=== PATIENT | male | born 1940 | race Caucasian/White ===

== ENCOUNTER 2017-04-05 09:52 | Inpatient (IN) ==
--- NOTE | 2017-04-04 17:57 | Anesthesia Evaluation PreOp ---
<RonyAnnalise Cespedes - Last Filed: 04/05/17 11:08> Date of Encounter: 04/05/17 Time of Encounter: 10:25 - Past History Cardiac History: HTN (maintained on Carvedilol), Hyperlipidemia (maintained on Atorvastatin), Arrhythmia (Eliquis maintenance for anticoagulation), Cardiac Stent (Cardiac stents x 4 - last placed 2007), Pacemaker/ICD (pacer dependent for SSS. Pacer leads placed 07/08/2013. AICD placement 05/02/2016), Other (CAD. ECHO 12/10/2015 - LVH, mildly reduced w/LVEF = 48%, hypokinetic posterior segments. Stable unchanged mildly dilated Aortic root 4.1cm. NUCLEAR STRESS 01/12/2016 - NO evidence of ischemia or prior myocardial injury) Pulmonary History: ANA Dx (Non-compliant w/CPAP use. 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 Chronic BAck pain s/p steroid injections and other interventions) Other Medical History: GERD (maintained on Omeoprazole) Anesthesia History: Past Anesthesia (Inguinal hernia repair 1996, Prostate surgery 07/2008, EP cardiac ablation 09/2007, L-hand exploratory surgery 2003, Removal/replacement of infected ICD 06/2013) Medications and Allergies Atorvastatin [Lipitor] 40 mg PO DAILY 04/01/15 [History] Multivitamin [Flintstones] 1 each PO DAILY 04/01/15 [History] Tamsulosin [Flomax] 0.4 mg PO DAILY 04/01/15 [History] Nitroglycerin [Nitrostat] 0.4 mg SL Q5M PRN 09/16/15 [History] Carvedilol 12.5 mg PO BID 07/08/16 [History] ALPRAZolam [Xanax 0.5 MG Tablet] 0.5 mg PO BID PRN 04/05/17 [History] Apixaban [Eliquis] 5 mg PO BID 04/05/17 [History] Escitalopram [Lexapro] 10 mg PO DAILY 04/05/17 [History] 3 Allergy/AdvReac Type Severity Reaction Status Date / Time celecoxib [From Celebrex] AdvReac Rash Verified 04/05/17 10:23 - Meds/Allergy Pre-op Review Beta Blockers on Current Med List: Yes (Carvedilol) If Beta Blockers taken, Date/Time (Last Dose taken): 04/05/2017 @ 0600 Anesthesia Results - Labs Laboratory Tests 02/02/17 03/03/17 03/30/17 09:43 07:33 10:00 WBC 12.1 H Hgb 14.6 Hct 45.4 Plt Count 222 Sodium Potassium Chloride Carbon Dioxide BUN Creatinine Est GFR ( Amer) Glucose 95 Est Mean Plasma Glucose 105 Hemoglobin A1c 5.3 03/30/17 10:00 WBC Hgb Hct Plt Count Sodium 138 Potassium 4.4 Chloride 98 Carbon Dioxide 36 H BUN 26 Creatinine 0.86 Est GFR ( Amer) > 60 Glucose Est Mean Plasma Glucose Hemoglobin A1c - Imaging EKG: report reviewed Anesthesia Exam O2 Sat Height 1.74 m Height 1.74 m Weight 76.657 kg Weight 76.657 kg O2 Sat by Pulse Oximetry 92 Vital Signs Temp Pulse Resp BP Pulse Ox 98.1 F 70 18 130/89 92 04/05/17 10:40 04/05/17 10:40 04/05/17 10:40 04/05/17 10:40 04/05/17 10:40 Height: 5'8" Weight: 169# BMI = 25 NPO (# of Hours): MNoc - HEENT Pupil (Motor): Pupils equal, EOMI Mallampati: III Teeth: Edentulous Oral Opening: Greater than 3 - MIGRATION SPECIALIST LOC: Oriented MIGRATION SPECIALIST Motor: Normal RUE, Normal LUE, Normal RLE, Normal LLE, Normal Face MIGRATION SPECIALIST Sensory: Normal: RUE, LUE, RLE, LLE, Face - Cardiac Rhythm: Regular Murmur: None - Pulmonary Breath Sounds: bilateral Clear Respiratory Effort: Symmetrical Anesthesia Assess/Plan ASA Score: 3 (Sick Sinus s/p AICD/Pacer, HTN, Chol, CVA) Modified [place] Scale for Level of Consciousness: Cooperative, oriented, and tranquil Anesthetic Plan: General Monitoring Plan: Standard Monitors Recovery Plan: PACU Anes Supervising Prov Stmt: Pt seen/evaluated, R&B discussed, questions answered and consent obtained. 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
[2017-04-05] MEDS ORDERED: Lidocaine -MPF 1% 2 ML VIAL ID ONE (10:12)
[2017-04-05] MEDS ORDERED: cefOXitin 2,000 MG in Water for inj. (sterile) 10 ML IVP ONE (10:12)
[2017-04-05] MEDS ORDERED: Plasma-Lyte A (PH 7.4) 1,000 ML IVC SCH (10:15)
[2017-04-05] MEDS ORDERED: Ringers Solution, Lactated 1,000 ML IVC SCH (10:15)
--- NOTE | 2017-04-05 10:59 | History & Physical Report ---
Date of Encounter: 04/05/17 Time of Encounter: 10:59 24 Hour HP Update - Instructions Instructions: If the History and Physical is less than 30 days old and was completed prior to A.M. admission and or procedure and has NOT been updated on calendar day of procedure please complete this update prior to performing procedure. - Update Patient reports changes in Medical Condition: No Changes in examination, assessment, or condition: No Changes in Medication: No Preop tests/diagnostics Reviewed: Yes Surgery Remains Indicated: Yes Consent for Planned Operative Procedure(s) Verified: Yes - Pre-Operative Checklist Preoperative Checklist Indicated: Yes Prophylactic Antibiotic Ordered: Yes Home Medications Include Beta Kenn: No
[2017-04-05] MEDS ORDERED: Famotidine 20 MG/2 ML VIAL IVP ONE (11:14)
[2017-04-05] MEDS ORDERED: Metoclopramide 10 MG/2 ML VIAL IVP ONE (11:14)
[2017-04-05] MEDS ORDERED: Acetaminophen IV 1,000 MG/100 ML INFUS..BTL IVPB ONE (11:15)
[2017-04-05] MEDS ORDERED: Gabapentin 300 MG CAPSULE PO ONE (11:45)
[2017-04-05] MEDS ORDERED: *HR* Rocuronium Bromide 50 MG/5 ML VIAL ONE (12:51)
[2017-04-05] MEDS ORDERED: Dexamethasone 4 MG/ML VIAL ONE (12:51)
[2017-04-05] MEDS ORDERED: *HR* Midazolam HCl 2 MG/2 ML VIAL ONE (12:51)
[2017-04-05] MEDS ORDERED: *HR* Propofol 200 MG/20 ML VIAL IVP ONE (12:51)
[2017-04-05] MEDS ORDERED: *HR* FentaNYL (PF) 100 MCG/2 ML VIAL ONE (12:51)
[2017-04-05] MEDS ORDERED: *HR* Succinylcholine 200 MG/10 ML VIAL IVP ONE (12:51)
[2017-04-05] MEDS ORDERED: Lidocaine -MPF 2% 2 ML VIAL ONE (12:51)
[2017-04-05] MEDS ORDERED: Ondansetron 4 MG/2 ML VIAL ONE (12:51)
[2017-04-05] MEDS ORDERED: EPHEDrine 50 MG/ML VIAL ONE (13:29)
[2017-04-05] MEDS ORDERED: Heparin 1,000 UNITS/500 mL NS 500 ML ONE (13:35)
[2017-04-05] MEDS ORDERED: *HR* EPINEPHrine 1 MG/ML AMPUL ONE (14:25)
[2017-04-05] MEDS ORDERED: *HR* EPINEPHrine 1 MG/10 ML SYRINGE ONE (14:26)
--- NOTE | 2017-04-05 15:13 | Anesthesia Progress Note ---
Date of Encounter: 04/05/17 Time of Encounter: 14:15 Anesthesia Note - Note Note: 04/05/17 15:03 Patient presents to OR for rehan alaniz. Patient was given Fentanyl and 80mg Propofol for induction by Keshav Garay CRNA. Intubated. Patient becomes very hypotensive (SBPs in 30's). Fails to respond to Ephedrine or Phenylephrine. I was paged to room. Patient is very pale and somewhat cyantoic in appearance. Unable to get O2 sat reading. No peripheral pulses but has a carotid and femoral pulse but weak. +BBS. Maintains electrical activity on EKG. Ordered epinephrine be given and 1cc on standard solution given. BP is slow to respond but does increase. BP eventually back to the 150's but gradually falls back to the 70's. At this point I place a femoral a-line, additional epi given and BPs increase again. Patient is still not responsive, given 0.4mg Narcan and slowly awakens. Able to extubate. Patient taken to ICU for evaluation by cardiology and to be monitored overnight. He did not appear to have any neurologic complications. Still concerned about damage to heart and kidneys due to long period (approx 15 min) of hypotension). Daughter was advised of the situation by Dr Goodman, Dr Uribe and myself.
--- NOTE | 2017-04-05 15:16 | Anesthesia Procedures ---
Date of Encounter: 04/05/17 Time of Encounter: 14:15 Procedures: Anesthesia - Arterial Line Time out performed: Yes Length (inches): 5 Technique Used: sterile prep, guide wire technique, direct puncture technique Post-Procedure: line sutured into place, dry sterile dressing placed Patient tolerated procedure: well, no complications Site: Femoral L Comments: Patient is intubated and in critical condition. A-line needed to monitor extreme hypotension and poor response to pressors. Patient may need pressor drip and will need a-line to be given these meds safely.
--- NOTE | 2017-04-05 16:04 | Event Note ---
Date of Encounter: 04/05/17 Time of Encounter: 16:04 This procedure was canceled due to the patient's hypotension after anesthesia induction. Patient is been transferred to the ICU for cardiac evaluation.
--- NOTE | 2017-04-05 17:11 | Cardiology Consult Note ---
Date of Encounter: 04/05/17 Time of Encounter: 17:02 Assessment and Plan (1) CAD in [place] artery Current Visit: Yes Status: Acute Date of CAD, PCI in 2007. Stress test in 2016 was negative for ischemia. Continue aspirin and statin therapy. Beta zuleyka on hold given hypotensive event today. (2) Stented coronary artery Current Visit: Yes Status: Acute (3) Cardiomyopathy Current Visit: Yes Status: Acute Per reports, previous cardiomyopathy. Most recent stress test from 2016 suggest a gated EF of 56%, TTE reports an EF of 48%. Hypotensive event today. Hold patient's home beta zuleyka for now. Qualifiers: Cardiomyopathy type: unspecified Qualified Code(s): I42.9 - Cardiomyopathy , unspecified (4) ICD (implantable cardioverter-defibrillator) in place Current Visit: Yes Status: Acute Records suggests a GRINDING WHEEL DRESSER device. We'll obtain records from [facility] and interrogate device. (5) Hypotensive episode Current Visit: Yes Status: Acute Mr. Mariscal is a 77-year-old who was admitted today for an elective cholecystectomy. After induction with propofol, patient suddenly became hypotensive per reports. Blood pressure improved with administration of vasopressors. Consultation requested regarding further cardiovascular management. Available records from [facility] were reviewed. From what I can gather, patient has a history of CAD, prior PCI in 2007, and a cardiomyopathy s/p ICD. Per reports from family , previous ICD was extracted from the left side and a new device was placed on the right sided. Prior reports suggests patient has a GRINDING WHEEL DRESSER device. A stress test performed in 2016 was negative for ischemia. A TTE in 2016 describes mildly reduced LV function with an EF of 48%. Patient's functional capacity is diminished due to chronic back pain. Recommendations: Check echocardiogram to evaluate current LV function. Interrogate device. Your ICU management regarding other effects from today's hypotensive event. Obtain all records from [facility]. Given the events of today, I would consider this patient at elevated risk of adverse cardiovascular events with anesthesia if this procedure is to be reattempted. Discussion w patient/family: The assessment and plan as outlined above was discussed with the patient and/or family members who expressed understanding and agreement. All questions were answered. Thank you for involving us in the care of your patient. Please call with any questions. History of Present Illness Consult date: 11/01/17 Requesting physician: Catracho Molina Consult reason: Perioperative Evaluation Chief complaint: Abdominal pain History of present illness: Mr. Mariscal is a 77 year old male who presented to the hospital for an elective cholecystectomy. Diagnosis: Biliary dyskinesia. Today, patient was induced with propofol when he suddenly developed significant hypotension. Per reports, he maintained a heart rate, but blood pressure was significantly decreased for around 10 minutes. Patient given vasoactive agents, including Klaus-Synephrine and epinephrine. Blood pressure ultimately normalized. Upon my evaluation, he is resting in the ICU. Blood pressure appears to be stable. Case discussed with family at the bedside. Patient's primary hide dyer is at [facility]. Previous records available in [facility] were reviewed: Per reports, history of CAD, prior PCI 2007, cardiomyopathy, previous ICD placement. Nuclear stress test 01/12/2016: Gated EF 56%. Negative for ischemia. Fixed inferolateral defect consistent with artifact. TTE 01/2016: Left ventricular hypertrophy with normal chamber size. Mildly reduced EF of 48%. Hypokinesis of the posterior segment suggesting prior infarction. Normal RV size, mild systolic dysfunction. Mildly dilated aortic root measuring 4.1 cm. Mildly dilated ascending aorta measuring 4.13 cm. Measurements unchanged from previous studies. No significant valvular disease. SCOTT 07/2013: EF 40-45%. Normal LV, RV size. Normal RV function. Mildly dilated ascending aorta. No obvious fibrillar vegetation seen. Linear echodensity noted in the RA and RV, which likely represents a cast from recently removed device. Linear echodensity visualized in the coronary sinus, likely represents a cast from recent device removal. Mild mitral regurgitation. Atheromatous disease of the descending and transverse aorta. Past Med Surg Social Fam HX - Past Medical History Medical history: arthritis, atrial fibrillation, cancer, CHF, coronary artery disease, CVA, hyperlipidemia, hypertension, myocardial infarction, other Psychiatric history: no psych history - Past Surgical History Surgical History: pacemaker/AICD - Social History Smoking Status: Never smoker Smokeless Tobacco Status: No Alcohol use: none Drug use: none Medications and Allergies Atorvastatin [Lipitor] 40 mg PO DAILY 04/01/15 [History] Multivitamin [Flintstones] 1 each PO DAILY 04/01/15 [History] Tamsulosin [Flomax] 0.4 mg PO DAILY 04/01/15 [History] Nitroglycerin [Nitrostat] 0.4 mg SL Q5M PRN 09/16/15 [History] Carvedilol 12.5 mg PO BID 07/08/16 [History] ALPRAZolam [Xanax 0.5 MG Tablet] 0.5 mg PO BID PRN 04/05/17 [History] Apixaban [Eliquis] 5 mg PO BID 04/05/17 [History] Escitalopram [Lexapro] 10 mg PO DAILY 04/05/17 [History] 3 Allergy/AdvReac Type Severity Reaction Status Date / Time celecoxib [From Celebrex] AdvReac Rash Verified 04/05/17 10:23 ROS unobtainable: other (Patient currently resting from the events of today. He was not disturbed.) All Systems Review: A 10-system review of systems was performed and is negative for pertinent findings except as documented above in the HPI. Physical Examination Vital Signs, Last 4 Hours Temp Pulse Resp BP Pulse Ox 04/05/17 16:35 70 16 134/71 99 04/05/17 15:45 70 16 141/72 99 04/05/17 15:02 72 04/05/17 14:45 98 F 71 15 161/79 100 04/05/17 14:42 98.1 F 70 24 150/87 98 04/05/17 14:32 71 22 139/93 100 04/05/17 14:22 69 24 148/90 98 04/05/17 14:12 98 F 69 24 174/64 100 General: No Apparent Distress HEENT: Atraumatic, Normocephaly, Mucus Membranes Moist Neck: No JVD, Normal carotid pulses Cardiac: Reg Rate and Rhythm, Normal S1 and S2, No Murmur Lungs: Normal Breath Sounds Neuro: Other (Currently sleeping.) Abdomen: Soft Skin: No rashes noted on visualized skin Musculoskeletal: No Chest Wall Tenderness Extremities: No Clubbing, No Cyanosis, No Edema Consult Discharge Plan - Plan Referrals: Ellen Vora DO [Primary Care Provider] -
[2017-04-05] MEDS: 0.9 % Sodium Chloride 1,000 ML IVC SCH (17:16)
[2017-04-05 19:09] LABS: Basophils % 0.1 %; Eosinophils # 0.1 K/mcL (0.0-0.6); Eosinophils % 1.7 %; Hematocrit 43.5 % (37.5-50.1); Hemoglobin 13.6 g/dL (12.9-16.9); Immature Granulocytes % 0.3 % (0-4); Lymphocytes # 0.8 K/mcL (0.6-4.6); Lymphocytes % 11.1 %; Mean Corpuscular HGB Conc 31.3 g/dL (31.6-35.5); Mean Corpuscular Hemoglobin 28.6 pg (28.0-33.3); Mean Corpuscular Volume 91.6 fL (83.0-100.0); Mean Platelet Volume 9.1 fL (9.4-12.4); Monocytes # 0.6 K/mcL (0.0-1.3); Neutrophils # 5.9 K/mcL (1.6-8.9); Platelet Count 145 K/mcL (140-400); Red Blood Count 4.75 M/mcL (4.19-5.50); Red Cell Distribution Width 14.1 % (11.5-14.5); Segmented Neutrophils % 78.8 %
[2017-04-05 19:28] LABS: BUN/Creatinine Ratio 21 (6-26); Blood Urea Nitrogen 14 mg/dL (8-26); Calcium 9.9 mg/dL (8.6-10.8); Carbon Dioxide 31 mEq/L (19-29); Chloride 101 mEq/L (98-109); Glucose 98 mg/dL (70-99); Osmolality,Calculated 288 (280-300); Potassium 4.5 mEq/L (3.5-4.5); Sodium 139 mEq/L (136-145); eGFR For African Americans > 60 (> 60); eGFR For Non-African Americans > 60 (> 60)
[2017-04-06] MEDS: Pantoprazole 40 MG VIAL IVP SCH (09:53)
[2017-04-06] MEDS ORDERED: Ipratropium/Albuterol Neb 3 ML ONE ×2 (11:26→12:43)
[2017-04-06] MEDS ORDERED: Ipratropium/Albuterol Neb 3 ML IH SCH (11:30)
--- NOTE | 2017-04-06 11:32 | General Surgery Progress Note ---
Date of Encounter: 04/06/17 Time of Encounter: 11:00 - Assessment and Plan (1) Biliary dyskinesia Current Visit: Yes Status: Chronic Advance to full liquids Supportive care Hold surgical intervention at this time due to hypotensive episode and acute onset shortness of breath (2) Shortness of breath Current Visit: Yes Status: Acute stat COMMAND AND CONTROL SPECIALIST Duonebs every 6 hours KELVIN IS every 1 hour while awake Consider pulmonary consult (3) Cardiomyopathy Current Visit: Yes Status: Chronic Echo shows current EF of 60-65% Cardiology following for recommendations Qualifiers: Cardiomyopathy type: unspecified Qualified Code(s): I42.9 - Cardiomyopathy , unspecified (4) CAD in [place] artery Current Visit: Yes Status: Acute (5) ICD (implantable cardioverter-defibrillator) in place Current Visit: Yes Status: Chronic Interrogation ordered per cardiology (6) Hypotensive episode Current Visit: Yes Status: Acute Hold beta zuleyka at this time Echo complete Cardiology consulted for recommendations Subjective Patient reports: tolerating liquids well, voiding w/o difficulty, shortness of breath (new onset this morning), afebrile Objective Vital Signs - Last 8 Hours Temp Pulse Resp BP Pulse Ox 04/06/17 11:15 97.8 F 04/06/17 07:33 72 18 124/66 94 04/06/17 07:00 97.7 F 04/06/17 06:14 76 16 139/62 93 04/06/17 05:00 72 16 120/52 95 04/06/17 04:44 98.0 F 04/06/17 04:02 73 20 141/57 95 Intake and Output 04/05/17 04/06/17 04/06/17 23:59 07:59 15:59 Intake Total 300 / 300 Output Total 500 / 500 300 / 300 Balance -200 / -200 -300 / -300 Intake: IV Fluids 300 / 300 Lactated Ringers 1,000 ML @ 25 300 / 300 mls/hr IVC .Q24H KELVIN Rx#: [id number] Output: Urine 500 / 500 300 / 300 Other: Weight 79.6 kg Patient Weight 04/06/17 23:59 Weight 79.6 kg - General physical appearance well developed, well nourished, moderate distress, no pain - Eyes normal ocular movement - ENT normal mucosa, atraumatic, normocephalic - Neck Neck exam: trachea midline - Respiratory clear to auscultation, other (Patient has conversational dyspnea, states that he can't stop coughing; diminished breath sounds bilateral) - Cardiovascular Cardiovascular exam: Present: RRR - Abdomen Abdomen: Present: bowel sounds present, soft, non tender - Neurologic CN 2-12 grossly intact - Psychiatric oriented to time, oriented to person, oriented to place, speech is normal, memory intact - Labs 04/05/17 18:57 04/05/17 18:57 Diabetes panel 04/05/17 Range/Units 18:57 Sodium 139 (136-145) mEq/L Potassium 4.5 (3.5-4.5) mEq/L Chloride 101 (98-109) mEq/L Carbon Dioxide 31 H (19-29) mEq/L BUN 14 (8-26) mg/dL Creatinine 0.66 L (0.72-1.25) mg/dL Glucose 98 (70-99) mg/dL Calcium 9.9 (8.6-10.8) mg/dL Calcium panel 04/05/17 Range/Units 18:57 Calcium 9.9 (8.6-10.8) mg/dL Pituitary panel 04/05/17 Range/Units 18:57 Sodium 139 (136-145) mEq/L Potassium 4.5 (3.5-4.5) mEq/L Chloride 101 (98-109) mEq/L Carbon Dioxide 31 H (19-29) mEq/L BUN 14 (8-26) mg/dL Creatinine 0.66 L (0.72-1.25) mg/dL Glucose 98 (70-99) mg/dL Calcium 9.9 (8.6-10.8) mg/dL Adrenal panel 04/05/17 Range/Units 18:57 Sodium 139 (136-145) mEq/L Potassium 4.5 (3.5-4.5) mEq/L Chloride 101 (98-109) mEq/L Carbon Dioxide 31 H (19-29) mEq/L BUN 14 (8-26) mg/dL Creatinine 0.66 L (0.72-1.25) mg/dL Glucose 98 (70-99) mg/dL Calcium 9.9 (8.6-10.8) mg/dL - VTE Documentation of Mechanical Device: Intermittent pneumatic compression device Consult Discharge Plan - Plan Referrals: Ellen Vora DO [Primary Care Provider] -
--- NOTE | 2017-04-06 11:52 | Cardiology Progress Note ---
Date of Encounter: 04/06/17 Time of Encounter: 11:50 Assessment and Plan (1) CAD in [place] artery Current Visit: Yes Status: Acute [place] CAD, PCI in 2007. Stress test in 2016 was negative for ischemia. Continue aspirin and statin therapy. Beta zuleyka on hold given hypotensive event today. (2) Stented coronary artery Current Visit: Yes Status: Acute (3) Cardiomyopathy Current Visit: Yes Status: Chronic Per reports, previous cardiomyopathy. Most recent stress test from 2016 suggest a gated EF of 56%, TTE reports an EF of 48%. TTE demonstrates normal LV function. I personally reviewed images and believe there is very mild basal inferior/inferolateral hypokinesis, but overall LV function is clearly normal. No significant valve disease noted. 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 Device interrogation normal. (5) Hypotensive episode Current Visit: Yes Status: Acute At this point, it is unclear why this patient had a hypotensive event during induction with anesthesia. His LV function is normal. His blood pressure remained stable. Most recent cardiac testing demonstrates acceptable findings. Recommend resuming beta zuleyka for its perioperative protective cardiac effect. No further inpatient cardiology testing appears to be necessary. Case was discussed with anesthesia. (6) PAF (paroxysmal atrial fibrillation) Current Visit: Yes Status: Acute Patient with a history of paroxysmal atrial fibrillation. Eliquis held for surgery. Recommend Lovenox twice a day until surgical decision has been made. Resume Eliquis when able. Discussion w patient/family: The assessment and plan as outlined above was discussed with the patient and/or family members who expressed understanding and agreement. All questions were answered. Thank you for involving us in the care of your patient. Please call with any questions. Subjective Principal diagnosis: Hypotensive event Interval history: Overall, Mr. Mariscal did well overnight. Despite hypotensive event, no significant abnormal labs. Records obtained from patient's ribbon tier also reviewed. Per reports, remote history of CAD and prior PCI, cardiomyopathy which improved with HEATING PLANT SUPERINTENDENT therapy. Stress test performed last year negative for ischemia. Apparently, LHC performed June 2016 demonstrated minimal CAD. Patient's primary complaint this morning is of mild shortness of breath. Objective Vital Signs, Last 4 Hours Temp Pulse Resp BP Pulse Ox 04/06/17 11:15 97.8 F 04/06/17 09:10 72 22 124/66 93 04/06/17 08:05 72 20 129/68 92 General: Conversant, No Apparent Distress HEENT: Atraumatic, Normocephaly, Mucus Membranes Moist Neck: No JVD, Normal carotid pulses Cardiac: Reg Rate and Rhythm, Normal S1 and S2, No Murmur Lungs: Normal Breath Sounds, No Wheeze, Rales, Rhonchi, Other (Shallow. Increased kyphosis noted, which seems to be restricting patient's breathing.) Neuro: Alert and responsive, No focal deficits noted Abdomen: Soft, Non-Tender Skin: No rashes noted on visualized skin Musculoskeletal: No Chest Wall Tenderness Extremities: No Clubbing, No Cyanosis, No Edema Results 04/05/17 18:57 04/05/17 18:57 Lab Results 04/05/17 04/05/17 04/05/17 18:57 18:57 18:57 WBC 7.5 Hgb 13.6 Hct 43.5 Plt Count 145 Sodium 139 Potassium 4.5 Chloride 101 Carbon Dioxide 31 H BUN 14 Creatinine 0.66 L Glucose 98 Calcium 9.9 Troponin I 0.03 04/06/17 04/06/17 00:25 06:08 WBC Hgb Hct Plt Count Sodium Potassium Chloride Carbon Dioxide BUN Creatinine Glucose Calcium Troponin I 0.03 0.05 H* - Imaging and Cardiology Stress Test: report reviewed Echo: report reviewed Cardiac cath: other (Comment made regarding catheterization performed earlier this year in patient's records from primary ribbon tier - minimal CAD reported. ) - EKG Interpretation EKG results cardiology: personally reviewed, other (Paced rhythm.) - VTE Documentation of Mechanical Device: Intermittent pneumatic compression device Consult Discharge Plan - Plan Referrals: Ellen Vora DO [Primary Care Provider] -
[2017-04-06] MEDS ORDERED: *HR* Enoxaparin 80 MG/0.8 ML SYRINGE SQ SCH (12:00)
[2017-04-06] MEDS ORDERED: Ipratropium/Albuterol Neb 3 ML IH ONE (12:39)
--- NOTE | 2017-04-06 12:44 | Pulmonology Consult Note ---
Date of Encounter: 04/06/17 Time of Encounter: 12:44 Assessment and Plan (1) Acute and chronic respiratory failure with hypoxia Current Visit: Yes Status: Acute This is a 77-year-old gentleman with a past medical history of coronary artery disease and ischemic cardiomyopathy who presented for elective cholecystectomy was complicated by hypotension. Today while being managed in the ICU became acutely hypoxemic and despite high flow nasal cannula oxygen Oxymask and nonrebreather patient was able to maintain sats Eanes saturation greater than 88 % he was trialed on noninvasive positive airway pressure however he became nauseous on this and could not tolerate it given tenuous respiratory status and failure of conservative measures patient required intubation. Leading differential diagnosis at this time include development of pneumonia complicated by significant ventilation perfusion mismatch from left-sided lower lobar collapse with possibility of progression to ARDS versus acute pulmonary embolus. Less likely but clearly in the differential would be cardiogenic pulmonary edema also chest x-ray was not suggestive of significant volume overload. Plan at this time is to start empiric anticoagulation with heparin infusion. Ventilator is been adjusted with some improvement in hypoxemia repeat arterial blood gas is pending Patient for CTA of the chest (pulmonary embolus protocol) Start empiric antimicrobials for possibility of pneumonia although he is still going to be considered at risk for community associated organisms with possible aspiration. I will further adjust the vent after CTA has been performed with increase in PEEP for possible lung recruitment and possible bronchoscopy if oriented based upon repeat imaging. Chest x-ray after intubation is pending at this time which it will also be helpful. We will start empirically with our \RDSnet low tidal volume ventilatory strategy CBC CMP and PT/INR lactate and troponin have been ordered (2) CAD in [place] artery Current Visit: Yes Status: Acute Mild troponin elevation without evidence of ST elevation on ECG patient has been evaluated by cardiology repeat echo is reassuring for near-normal ejection fraction without any RV failure. Beta zuleyka was held because of hypotension we can likely restart that after pulmonary embolus has been excluded and full anticoagulation is going to be administered at this time not for ACS but for possibility of pulmonary embolus. I suspect that the elevation in his troponin is related to supply demand mismatch We can also continue the patient's home aspirin. (3) Hypotensive episode Current Visit: Yes Status: Acute This is resolved likely related to induction medications used for anesthesia possibly propofol patient is actually hypertensive at this time and we have started treatment with hydralazine once NG tube has been placed we will give the patient antihypertensives from the enteral route (4) PAF (paroxysmal atrial fibrillation) Current Visit: Yes Status: Acute Remains rate controlled today starting notable blocking agent when safe to do so anticoagulation as outlined previously again we appreciate cardiology following closely with this patient (5) Biliary dyskinesia Current Visit: Yes Status: Chronic Plan for cholecystectomy is on hold currently because of critical illness and severe hypoxemic respiratory failure (6) Cardiomyopathy Current Visit: Yes Status: Chronic Repeat echocardiogram as outlined ejection fraction near normal no RV dysfunction we will continue to monitor Qualifiers: Cardiomyopathy type: unspecified Qualified Code(s): I42.9 - Cardiomyopathy , unspecified History of Present Illness Consult date: 04/06/17 Requesting physician: Saul Goodman Reason for consult: hypoxemia Chief complaint: Shortness of breath History of present illness: This is a pleasant 77 year old gentleman who came to the hospital for an elective cholecystectomy for biliary dyskinesia. During induction of anesthesia yesterday he was noted to have significant hypotension that resolved with vasopressor the etiology of this remains unclear. The procedure was understandably canceled subsequent to this and patient was triaged ICU for overnight blood pressure had stabilized and was doing relatively well. Pulmonary was consulted because the patient was noted to have significant hypoxemia that happened relatively acutely over the course of this morning now requiring noninvasive positive airway pressure support to maintain oxygen saturation. Blood pressure now is actually on the higher side with systolics ranging from 170s to 190s patient is to Make an difficult to communicate because of BiPAP mask and his level of dyspnea. He has a paced rhythm for underlying sick sinus syndrome and a ICD for heart failure with reduced ejection fraction with underlying ischemic heart disease. Been evaluated by cardiology today with echocardiogram which showed relatively preserved ejection fraction and no other suspicious findings chest x-ray was notable for elevation of the left-sided hemidiaphragm possible pneumonia versus atelectasis on this. Patient has a history of atrial fibrillation and been maintained on a novel anticoagulant however that been held during the time of surgery and has not received to the best of my knowledge any DVT prophylaxis in the interim although cardiology suggested that he start be started on full dose enoxaparin as a bridge until he can be sorted out whether or not they will proceed with cholecystectomy. 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 Past medical history is as above including hyperlipidemia and hypertension. Past Med Surg Social Fam HX - Past Medical History Medical history: arthritis, atrial fibrillation, cancer, CHF, coronary artery disease, CVA, hyperlipidemia, hypertension, myocardial infarction, other Psychiatric history: no psych history - Past Surgical History Surgical History: pacemaker/AICD - Social History Smoking Status: Never smoker Smokeless Tobacco Status: No Alcohol use: none Drug use: none Medications and Allergies Atorvastatin [Lipitor] 40 mg PO DAILY 04/01/15 [History] Multivitamin [Flintstones] 1 each PO DAILY 04/01/15 [History] Tamsulosin [Flomax] 0.4 mg PO DAILY 04/01/15 [History] Nitroglycerin [Nitrostat] 0.4 mg SL Q5M PRN 09/16/15 [History] Carvedilol 12.5 mg PO BID 07/08/16 [History] ALPRAZolam [Xanax 0.5 MG Tablet] 0.5 mg PO BID PRN 04/05/17 [History] Apixaban [Eliquis] 5 mg PO BID 04/05/17 [History] Escitalopram [Lexapro] 10 mg PO DAILY 04/05/17 [History] 3 Allergy/AdvReac Type Severity Reaction Status Date / Time celecoxib [From Celebrex] AdvReac Rash Verified 04/05/17 10:23 All Systems: A 10-system review of systems was performed and is negative for pertinent findings except as documented above in the HPI. Physical Examination Vital Signs: Vital Signs, Last 4 Hours Temp Pulse Resp BP Pulse Ox 04/06/17 11:31 20 87 04/06/17 11:15 97.8 F 04/06/17 10:05 74 24 133/59 90 04/06/17 09:10 72 22 124/66 93 General appearance: appears uncomfortable Eyes: nonicteric ENT: other (Positive airway pressure mask noted) Neck: supple, no lymphadenopathy Effort: very labored Auscultation: bilateral: diminished breath sounds (Left greater than right) Cardiovascular: regular rate and rhythm (No murmur) Gastrointestinal: hypoactive bowel sounds, soft, tender (To deep palpation no rebound) Integumentary: normal Extremities: no edema Musculoskeletal: no deformities Gait: normal posture normal mental status, non-focal exam anxious Results - Laboratory Findings CBC and BMP: 04/06/17 13:02 04/06/17 13:02 Abnormal lab findings: Abnormal lab results MCHC 31.3 g/dL (31.6-35.5) L 04/05/17 18:57 MPV 9.1 fL (9.4-12.4) L 04/05/17 18:57 Carbon Dioxide 31 mEq/L (19-29) H 04/05/17 18:57 Creatinine 0.66 mg/dL (0.72-1.25) L 04/05/17 18:57 POC Glucose 93 (58-89) H 04/05/17 14:59 Lactic Acid 0.4 mmol/L (0.5-2.2) L 04/05/17 18:57 Troponin I 0.05 ng/mL (0-0.03) H* 04/06/17 06:08 - Diagnostic Findings Chest x-ray: report reviewed, image reviewed - Clinical Findings Intake & Output: Intake & Output 04/05/17 04/06/17 04/06/17 23:59 07:59 15:59 Intake Total 300 / 300 Output Total 500 / 500 300 / 300 Balance -200 / -200 -300 / -300 Weight 79.6 kg Pulmonary Procedures - Intubation Time out performed: Yes Sedative: Etomidate Mg given: 20 Paralytic: Rocuronium Mg given: 50 Laryngoscope: fiber optic ET tube size: 7.5 Tube secured depth (cm): 23 Tube secured location: lips Tube placement confirmation: visualized tube passing through cords, equal breath sounds bilaterally, no breath sounds over epigastrium, confirmation by capnometry Patient tolerated procedure: well, no complications Intubation complications: none Consult Discharge Plan - Plan Referrals: Ellen Vora DO [Primary Care Provider] -
[2017-04-06 13:10] LABS: Basophils % 0.1 %; Eosinophils % 0.1 %; Hematocrit 47.5 % (37.5-50.1); Hemoglobin 14.9 g/dL (12.9-16.9); Immature Granulocytes % 0.5 % (0-4); Lymphocytes # 0.5 K/mcL (0.6-4.6); Lymphocytes % 2.8 %; Mean Corpuscular HGB Conc 31.4 g/dL (31.6-35.5); Mean Corpuscular Hemoglobin 28.7 pg (28.0-33.3); Mean Corpuscular Volume 91.5 fL (83.0-100.0); Monocytes # 0.4 K/mcL (0.0-1.3); Monocytes % 2.1 %; Neutrophils # 15.6 K/mcL (1.6-8.9); Platelet Count 167 K/mcL (140-400); Red Blood Count 5.19 M/mcL (4.19-5.50); Segmented Neutrophils % 94.4 %
[2017-04-06] MEDS ORDERED: Ondansetron 4 MG/2 ML VIAL ONE (13:12)
[2017-04-06 13:14] LABS: ABG Base Excess 7 mEq/L (-2 to 3); ABG HCO3 34 mEq/L (21-27); ABG Oxygen Saturation 88 % (95-98); ABG PCO2 52 mmHg (35-45); ABG PH 7.42 pH Units (7.32-7.45); ABG PO2 55 mmHg (85-104); ABG TCO2 35 mEq/L (20-26); Blood Gas Modality NIV; Blood Gas PEEP 4 cm H2O
[2017-04-06 13:16] LABS: INR 1.1
[2017-04-06] MEDS ORDERED: D5% in Water 250 ML ONE (13:20)
[2017-04-06] MEDS ORDERED: *HR* Norepinephrine 4 MG/4 ML VIAL IVC ONE (13:20)
[2017-04-06 13:24] LABS: BUN/Creatinine Ratio 17 (6-26); Blood Urea Nitrogen 12 mg/dL (8-26); Calcium 10.4 mg/dL (8.6-10.8); Carbon Dioxide 33 mEq/L (19-29); Chloride 96 mEq/L (98-109); Glucose 111 mg/dL (70-99); Osmolality,Calculated 284 (280-300); Potassium 4.1 mEq/L (3.5-4.5); Sodium 137 mEq/L (136-145); eGFR For African Americans > 60 (> 60); eGFR For Non-African Americans > 60 (> 60)
[2017-04-06 13:25] LABS: Alanine Aminotransferase 29 Units/L (0-55); Albumin 3.4 g/dL (3.5-5.0); Albumin/Globulin Ratio 0.9 (1.1-2.2); Alkaline Phosphatase 173 Units/L (38-126); Aspartate Amino Transferase 22 Units/L (5-34); BUN/Creatinine Ratio 16 (6-26); Bilirubin,Total 2.6 mg/dL (0.2-1.2); Blood Urea Nitrogen 12 mg/dL (8-26); Calcium 10.4 mg/dL (8.6-10.8); Carbon Dioxide 33 mEq/L (19-29); Chloride 96 mEq/L (98-109); Globulin 3.6 g/dL (2.4-3.5); Glucose 112 mg/dL (70-99); Osmolality,Calculated 283 (280-300); Potassium 4.1 mEq/L (3.5-4.5); Sodium 136 mEq/L (136-145); eGFR For African Americans > 60 (> 60); eGFR For Non-African Americans > 60 (> 60)
[2017-04-06] MEDS ORDERED: *HR* Heparin 5,000 UNIT/ML VIAL IVP PRN ×2 (13:27)
[2017-04-06] MEDS ORDERED: Heparin 25,000 UNIT/500 ML D5W 25,000 UNIT/500 ML MLS IVC SCH (13:30)
[2017-04-06] MEDS ORDERED: *HR* FentaNYL (PF) 100 MCG/2 ML VIAL ONE (13:31)
[2017-04-06 13:52] LABS: Activated Partial Thrombo Time 31.3 Seconds (26.0-36.0)
[2017-04-06] MEDS: FentaNYL (PF) 1,000 MCG in 0.9 % Sodium Chloride 80 ML IVC SCH (14:26)
[2017-04-06] MEDS ORDERED: Lacri-Lube 3.5 GM TUBE BOTH EYES PRN (14:31)
[2017-04-06 14:41] LABS: ABG Base Excess 5 mEq/L (-2 to 3); ABG HCO3 31 mEq/L (21-27); ABG Oxygen Saturation 91 % (95-98); ABG PCO2 49 mmHg (35-45); ABG PH 7.41 pH Units (7.32-7.45); ABG PO2 61 mmHg (85-104); ABG TCO2 32 mEq/L (20-26); Blood Gas Modality VC; Blood Gas PEEP 8 cm H2O; Blood Gas Respiration Rate 16; Blood Gas VT 500 cc
[2017-04-06] MEDS: 0.9 % Sodium Chloride 1,000 ML IVC SCH ×2 (14:56→23:17)
[2017-04-06] MEDS: *HR* Heparin 5,000 UNIT/ML VIAL IVP ONE ×2 (14:57→15:25)
[2017-04-06] MEDS: Piperacillin/Tazobactam 3.375 GM in D5% in Water (Mini-Bag+) 100 ML IVPB SCH ×2 (15:00→22:00)
[2017-04-06] MEDS ORDERED: 0.9 % Sodium Chloride 500 ML IVC ONE (15:30)
[2017-04-06 16:05] LABS: ABG Base Excess 6 mEq/L (-2 to 3); ABG HCO3 31 mEq/L (21-27); ABG Oxygen Saturation 91 % (95-98); ABG PCO2 48 mmHg (35-45); ABG PH 7.43 pH Units (7.32-7.45); ABG PO2 60 mmHg (85-104); ABG TCO2 33 mEq/L (20-26); Blood Gas Modality ASSIST CONTROL; Blood Gas PEEP 10 cm H2O; Blood Gas Respiration Rate 16; Blood Gas VT 550 cc
[2017-04-06] MEDS: Ipratropium/Albuterol Neb 3 ML IH SCH ×3 (16:11→22:58)
[2017-04-06] MEDS: Lacri-Lube 3.5 GM TUBE BOTH EYES SCH ×3 (16:17→23:16)
[2017-04-06] MEDS: MethylPREDNISolone 40 MG/ML VIAL IVP SCH ×2 (16:40→22:01)
--- NOTE | 2017-04-06 16:46 | Procedure Note ---
<Wilfrid Stringer - Last Filed: 04/06/17 16:42> Date of procedure: 04/06/17 Pre-op diagnosis: Hypotension Post-op diagnosis: same Procedure: Central venous catheter placement: Written consent was obtained from the patient's daughter. Time out was performed. The right inguinal area surveyed using ultrasound and deemed to be suitable target. The patient was cleaned and draped in usual sterile fashion. Under ultrasound guidance the introducer needle was advanced into the right femoral vein. Dark red, nonpulsatile blood flow was returned. A guidewire was advanced to the introducer needle and into the vein without resistance. Under ultrasound the guidewire was visualized in the right femoral vein. The introducer was removed and a matt in the skin was made. The dilator was advanced over the guidewire and the skin and soft tissues were dilated. A 20 cm , triple-lumen catheter was advanced over the guidewire and into the right femoral vein without resistance. The guidewire was removed intact. All 3 ports were tested and shown to draw blood and flushed easily. The catheter was sutured in place. Biopatch and sterile dressing were applied. The patient tolerated the procedure well, there are no immediate complications. Anesthesia: GETA Surgeon: Wilfrid Stringer Estimated blood loss (cc): 5 IV fluids (cc): 10 Pathology: none sent Condition: critical Disposition: ICU <Shiva Balbuena - Last Filed: 04/07/17 06:50> - Attending Attestation I examined this patient and my medical decision-making was reviewed with the Resident Physician. I agree with the documented findings, disposition and treatment plan as described except to the extent set forth below. I was physically available for the entire procedure as outlined by Dr. Mcadams
[2017-04-06 17:08] LABS: ABG Base Excess 5 mEq/L (-2 to 3); ABG HCO3 32 mEq/L (21-27); ABG Oxygen Saturation 89 % (95-98); ABG PCO2 52 mmHg (35-45); ABG PH 7.39 pH Units (7.32-7.45); ABG PO2 57 mmHg (85-104); ABG TCO2 33 mEq/L (20-26); Blood Gas Modality ASSIST CONTROL; Blood Gas PEEP 10 cm H2O; Blood Gas Respiration Rate 16; Blood Gas VT 550 cc
[2017-04-06] MEDS: Norepinephrine 4 MG in D5% in Water 250 ML IVC SCH ×2 (17:34→21:17)
[2017-04-06 17:56] LABS: ABG Base Excess 5 mEq/L (-2 to 3); ABG HCO3 30 mEq/L (21-27); ABG Oxygen Saturation 78 % (95-98); ABG PCO2 47 mmHg (35-45); ABG PH 7.42 pH Units (7.32-7.45); ABG PO2 42 mmHg (85-104); ABG TCO2 31 mEq/L (20-26)
[2017-04-06 18:04] LABS: ABG Base Excess 2 mEq/L (-2 to 3); ABG HCO3 26 mEq/L (21-27); ABG Oxygen Saturation 85 % (95-98); ABG PCO2 37 mmHg (35-45); ABG PH 7.45 pH Units (7.32-7.45); ABG PO2 47 mmHg (85-104); ABG TCO2 27 mEq/L (20-26); Blood Gas Modality ASSIST CONTROL; Blood Gas PEEP 12 cm H2O; Blood Gas Respiration Rate 16; Blood Gas VT 550 cc
[2017-04-06 18:11] LABS: ABG Base Excess 3 mEq/L (-2 to 3); ABG HCO3 27 mEq/L (21-27); ABG Oxygen Saturation 91 % (95-98); ABG PCO2 39 mmHg (35-45); ABG PH 7.45 pH Units (7.32-7.45); ABG PO2 58 mmHg (85-104); ABG TCO2 28 mEq/L (20-26)
[2017-04-06 18:59] LABS: Basophils % 0.1 %; Hematocrit 41.7 % (37.5-50.1); Hemoglobin 13.6 g/dL (12.9-16.9); Immature Granulocytes % 0.4 % (0-4); Lymphocytes # 0.3 K/mcL (0.6-4.6); Lymphocytes % 2.3 %; Mean Corpuscular HGB Conc 32.6 g/dL (31.6-35.5); Mean Corpuscular Hemoglobin 29.1 pg (28.0-33.3); Mean Corpuscular Volume 89.3 fL (83.0-100.0); Mean Platelet Volume 9.3 fL (9.4-12.4); Monocytes # 0.5 K/mcL (0.0-1.3); Monocytes % 3.7 %; Neutrophils # 13.5 K/mcL (1.6-8.9); Platelet Count 154 K/mcL (140-400); Red Blood Count 4.67 M/mcL (4.19-5.50); Red Cell Distribution Width 14.3 % (11.5-14.5); Segmented Neutrophils % 93.5 %
[2017-04-06 19:04] LABS: BUN/Creatinine Ratio 17 (6-26); Blood Urea Nitrogen 16 mg/dL (8-26); Calcium 9.1 mg/dL (8.6-10.8); Carbon Dioxide 28 mEq/L (19-29); Chloride 101 mEq/L (98-109); Glucose 99 mg/dL (70-99); Magnesium 1.1 mg/dL (1.6-2.6); Osmolality,Calculated 285 (280-300); eGFR For African Americans > 60 (> 60); eGFR For Non-African Americans > 60 (> 60)
[2017-04-06 19:06] LABS: Sodium 137 mEq/L (136-145)
[2017-04-06] MEDS: Chlorhexidine Rinse 15 ML MOUTHWASH MM SCH (20:20)
[2017-04-06] MEDS: Dexmedetomidine HCl 400 MCG/100 ML MLS IVC SCH (21:24)
[2017-04-06] MEDS: *HR* Heparin 5,000 UNIT/ML VIAL SQ SCH (23:15)
[2017-04-06 23:58] LABS: ABG Base Excess 2 mEq/L (-2 to 3); ABG HCO3 28 mEq/L (21-27); ABG Oxygen Saturation 98 % (95-98); ABG PCO2 47 mmHg (35-45); ABG PH 7.38 pH Units (7.32-7.45); ABG PO2 101 mmHg (85-104); ABG TCO2 29 mEq/L (20-26); Blood Gas Modality ASSIST CONTROL
[2017-04-07] MEDS: Norepinephrine 4 MG in D5% in Water 250 ML IVC SCH ×4 (00:20→18:05)
[2017-04-07] MEDS ORDERED: Vancomycin 1,250 MG in D5% in Water 250 ML IVPB SCH (03:00)
[2017-04-07] MEDS: Lacri-Lube 3.5 GM TUBE BOTH EYES SCH ×6 (03:02→23:42)
[2017-04-07] MEDS: Vancomycin 1,250 MG in D5% in Water 250 ML IVPB SCH ×2 (03:28→15:18)
[2017-04-07 03:30] LABS: Basophils # 0.1 K/mcL (0.0-0.2); Basophils % 0.3 %; Hematocrit 40.8 % (37.5-50.1); Hemoglobin 13.5 g/dL (12.9-16.9); Immature Granulocytes % 0.7 % (0-4); Lymphocytes # 0.5 K/mcL (0.6-4.6); Lymphocytes % 2.4 %; Mean Corpuscular HGB Conc 33.1 g/dL (31.6-35.5); Mean Corpuscular Hemoglobin 28.9 pg (28.0-33.3); Mean Corpuscular Volume 87.4 fL (83.0-100.0); Mean Platelet Volume 9.5 fL (9.4-12.4); Monocytes # 0.7 K/mcL (0.0-1.3); Monocytes % 3.4 %; Neutrophils # 19.3 K/mcL (1.6-8.9); Platelet Count 144 K/mcL (140-400); Red Blood Count 4.67 M/mcL (4.19-5.50); Red Cell Distribution Width 14.4 % (11.5-14.5); Segmented Neutrophils % 93.2 %
[2017-04-07 03:32] LABS: INR 1.5
[2017-04-07 03:34] LABS: Ionized Calcium 1.23 mmol/L (1.15-1.35)
[2017-04-07] MEDS: Ipratropium/Albuterol Neb 3 ML IH SCH ×6 (03:35→23:30)
[2017-04-07 03:43] LABS: Alanine Aminotransferase 24 Units/L (0-55); Albumin/Globulin Ratio 0.7 (1.1-2.2); Alkaline Phosphatase 115 Units/L (38-126); Aspartate Amino Transferase 26 Units/L (5-34); BUN/Creatinine Ratio 19 (6-26); Bilirubin,Indirect 2.7 mg/dL (0.0-1.2); Blood Urea Nitrogen 20 mg/dL (8-26); Calcium 8.9 mg/dL (8.6-10.8); Carbon Dioxide 25 mEq/L (19-29); Chloride 102 mEq/L (98-109); Globulin 3.3 g/dL (2.4-3.5); Glucose 157 mg/dL (70-99); Magnesium 1.7 mg/dL (1.6-2.6); Osmolality,Calculated 286 (280-300); Phosphorous 2.6 mg/dL (2.3-4.7); Potassium 4.1 mEq/L (3.5-4.5); Sodium 135 mEq/L (136-145); Total Protein 5.7 g/dL (6.0-8.3); eGFR For African Americans > 60 (> 60); eGFR For Non-African Americans > 60 (> 60)
[2017-04-07 03:45] LABS: Albumin 2.4 g/dL (3.5-5.0); Bilirubin,Total 3.7 mg/dL (0.2-1.2)
[2017-04-07 03:59] LABS: ABG Base Excess 2 mEq/L (-2 to 3); ABG HCO3 25 mEq/L (21-27); ABG Oxygen Saturation 98 % (95-98); ABG PCO2 35 mmHg (35-45); ABG PH 7.46 pH Units (7.32-7.45); ABG PO2 95 mmHg (85-104); ABG TCO2 26 mEq/L (20-26); Blood Gas Modality VC
[2017-04-07 05:23] LABS: Platelet Estimate Normal (Normal)
[2017-04-07] MEDS: *HR* Heparin 5,000 UNIT/ML VIAL SQ SCH ×3 (08:17→23:41)
[2017-04-07] MEDS: MethylPREDNISolone 40 MG/ML VIAL IVP SCH ×3 (08:17→23:42)
[2017-04-07] MEDS: Pantoprazole 40 MG VIAL IVP SCH (08:17)
[2017-04-07] MEDS: Chlorhexidine Rinse 15 ML MOUTHWASH MM SCH ×2 (08:19→21:24)
[2017-04-07] MEDS ORDERED: Aminoglycoside Consult 1 EACH MC ONE (08:20)
[2017-04-07] MEDS ORDERED: 0.9 % Sodium Chloride 500 ML IVC ONE (08:20)
--- NOTE | 2017-04-07 09:04 | Pulmonology Progress Note ---
<Shiva Balbuena W - Last Filed: 04/07/17 09:58> Date of Encounter: 04/07/17 Assessment and Plan (1) Acute and chronic respiratory failure with hypoxia Current Visit: Yes Status: Acute (2) CAD in [place] artery Current Visit: Yes Status: Acute (3) Hypotensive episode Current Visit: Yes Status: Acute (4) PAF (paroxysmal atrial fibrillation) Current Visit: Yes Status: Acute (5) Biliary dyskinesia Current Visit: Yes Status: Chronic (6) Cardiomyopathy Current Visit: Yes Status: Chronic Objective PUL Vital signs: Last Vital Signs Temp 97.6 F 04/07/17 07:21 Pulse 73 04/07/17 09:00 Resp 19 04/07/17 09:00 BP 118/60 04/07/17 09:00 Pulse Ox 100 04/07/17 09:00 Ventilator Settings Ventilator Settings: Ventilator Settings, Last 8 Hours Ventilator Mode A/C Ventilator Mode A/C Ventilator Mode A/C Ventilator Mode A/C Ventilator Mode A/C Ventilator Mode A/C Ventilator Mode A/C Ventilator Mode A/C Ventilator Mode A/C Ventilator Mode A/C Ventilator Tidal Volume 550 Setting Ventilator Tidal Volume 550 Setting Ventilator Tidal Volume 550 Setting Ventilator Tidal Volume 550 Setting Ventilator Tidal Volume 550 Setting Ventilator Tidal Volume 550 Setting Ventilator Tidal Volume 550 Setting Ventilator Tidal Volume 550 Setting Ventilator Tidal Volume 550 Setting Ventilator Tidal Volume 550 Setting Ventilator Respiratory Rate 14 Setting Ventilator Respiratory Rate 14 Setting Ventilator Respiratory Rate 16 Setting Ventilator Respiratory Rate 16 Setting Ventilator Respiratory Rate 16 Setting Ventilator Respiratory Rate 16 Setting Ventilator Respiratory Rate 16 Setting Ventilator Respiratory Rate 16 Setting Ventilator Respiratory Rate 16 Setting Ventilator Respiratory Rate 16 Setting Actual Respiratory Rate 14 Actual Respiratory Rate 14 Actual Respiratory Rate 16 Actual Respiratory Rate 16 Actual Respiratory Rate 16 Actual Respiratory Rate 16 Actual Respiratory Rate 16 Actual Respiratory Rate 16 Actual Respiratory Rate 16 Positive End Expiratory 12 Pressure Positive End Expiratory 12 Pressure Positive End Expiratory 12 Pressure Positive End Expiratory 12 Pressure Positive End Expiratory 12 Pressure Positive End Expiratory 12 Pressure Positive End Expiratory 12 Pressure Positive End Expiratory 12 Pressure Positive End Expiratory 12 Pressure Positive End Expiratory 12 Pressure Peak Inspiratory Airway 28 Pressure Peak Inspiratory Airway 30 Pressure Peak Inspiratory Airway 32 Pressure Peak Inspiratory Airway 32 Pressure Peak Inspiratory Airway 30 Pressure Peak Inspiratory Airway 30 Pressure Peak Inspiratory Airway 30 Pressure Peak Inspiratory Airway 30 Pressure Peak Inspiratory Airway 30 Pressure Results - Laboratory Findings CBC and BMP: 04/07/17 03:03 04/07/17 03:03 ABG ABG pH 7.46 pH Units (7.32-7.45) H 04/07/17 03:55 ABG pCO2 35 mmHg (35-45) 04/07/17 03:55 ABG pO2 95 mmHg (85-104) 04/07/17 03:55 ABG O2 Saturation 98 % (95-98) 04/07/17 03:55 PT/INR, D-dimer PT 16.0 Seconds (9.4-12.1) H 04/07/17 03:03 Abnormal lab findings: Abnormal lab results WBC 20.7 K/mcL (4.3-11.1) H 04/07/17 03:03 Neutrophils # 19.3 K/mcL (1.6-8.9) H 04/07/17 03:03 Lymphocytes # 0.5 K/mcL (0.6-4.6) L 04/07/17 03:03 PT 16.0 Seconds (9.4-12.1) H 04/07/17 03:03 ABG pH 7.46 pH Units (7.32-7.45) H 04/07/17 03:55 Sodium 135 mEq/L (136-145) L 04/07/17 03:03 Glucose 157 mg/dL (70-99) H 04/07/17 03:03 POC Glucose 93 (58-89) H 04/05/17 14:59 Total Bilirubin 3.7 mg/dL (0.2-1.2) H 04/07/17 03:03 Direct Bilirubin 1.0 mg/dL (0.0-0.5) H 04/07/17 03:03 Indirect Bilirubin 2.7 mg/dL (0.0-1.2) H 04/07/17 03:03 Troponin I 0.05 ng/mL (0-0.03) H* 04/06/17 13:02 Serum Total Protein 5.7 g/dL (6.0-8.3) L 04/07/17 03:03 Albumin 2.4 g/dL (3.5-5.0) L D 04/07/17 03:03 Albumin/Globulin Ratio 0.7 (1.1-2.2) L 04/07/17 03:03 - Microbiology Findings Microbiology Findings: Microbiology, Last 48 Hours 04/06/17 20:37 Sputum Culture - Preliminary Sputum 04/06/17 17:23 Streptococcus pneumoniae Antigen (M - Final Urine,[place] 04/06/17 17:23 Legionella Antigen - Final Urine,[place] - Clinical Findings Intake & Output: Intake & Output 04/06/17 04/07/17 04/07/17 23:59 07:59 15:59 Intake Total 2128 / 2128 354 / 354 0 / 0 Output Total 300 / 300 150 / 150 Balance 1828 / 1828 204 / 204 0 / 0 Consult Discharge Plan - Plan Referrals: Ellen Vora DO [Primary Care Provider] - - Attending Attestation I examined this patient and my medical decision-making was reviewed with the Resident Physician. I agree with the documented findings, disposition and treatment plan as described except to the extent set forth below. We independently had [id number] contact with the patient I spent 35min of Critical Care time with this patient. It involved decision making of high complexity to assess, manipulate, and support vital organ system failure and/or to prevent further life threatening deterioration of the patient' s condition. The time involved in the performance of separately reportable procedures was not counted toward critical care time. Patient seen and examined at bedside Labs, radiology, chart personally reviewed. Management was reviewed during multidisciplinary critical care rounds. Neuropsych: Sedated on vent. Cont Precedex and Fentanyl high risk for delirium which we will cont to monitor and avoid sensory deprivation as possible. Pulm: Acute hypoxic respiratory failure s/t to Lobar PNA suspected aspiration complicated by MSK deformity (kyphoscoliosis). He has been requiring High Fio2 however we have been able to Fio2 over last 24 hours to 50% and PEEP of 10 using LTV Vent strategy. Switched to VC+ mode today for improvement in work of breathing. 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 Chronic Afib. Cardiology following. will start full anticoagulation per Cardio recs today. He also has vasodilatory shock s/t to Sepsis on Vasopressor goal MAP 65 we have given judisious volume resucitation based upon cardiac function and response to 500cc volume challenges. Repeat Lactate Today. FEN-GI:PPI prophylaxis given. Start enternal nutrition today and Bowel. Regimen. Renal: Moderate UOP with slight elevation in sCR he is as high risk for KAMILAH. Cont to monitor daily Renal function and Electrolytes which will be replaced per protocol. We will cont to minimize nephrotoxic agents as possible. ID: Septic shock s/t to PNA suspected aspiration but Gram + Cocci. ?MRSA covering broadly with Abx. for Gram negative and Possible MRSA. Heme/Onc: DVT prophylaxis given restat NOAC when more stable. Endo: Glucose Monitored Integ/MSK: Skin Care per routine ICU Nursing Protocol to prevent ulcers. Lines: All lines examined without evidence of infection Dispo: Remains Critically ill CODE: I have been in communication with patients SANJEEV () and two adult daughters given updates several times throughout the day. He remains full code. <Wilfrid Stringer Faye - Last Filed: 04/07/17 12:46> Date of Encounter: 04/07/17 Time of Encounter: 09:03 Assessment and Plan (1) Acute and chronic respiratory failure with hypoxia Current Visit: Yes Status: Acute Likely secondary to pneumonia. Unfortunately the patient decided yesterday and was unable to maintain his sats despite noninvasive ventilation. Patient was then intubated. Patient was initially difficult to oxygenate but with lung recruitment the patient's oxygenation improved drastically. We will continue to titrate down FiO2 and PEEP. CTA of the chest was performed to rule out pneumonia. (2) Pneumonia Current Visit: Yes Status: Acute Unknown microbiologic agent at this time, possibly due to aspiration. Chest x- ray appears improved today. Sputum culture shows gram-positive cocci. Blood cultures pending. Continue broad-spectrum antibiotic coverage with vancomycin and Zosyn until culture results are obtained. Qualifiers: Pneumonia type: due to unspecified organism Laterality: left Lung location: lower lobe of lung Qualified Code(s): J18.1 - Lobar pneumonia, unspecified organism (3) Septic shock Current Visit: Yes Status: Acute Secondary to pneumonia as discussed above. Patient is required norepinephrine for vasopressor support. (4) CAD in [place] artery Current Visit: Yes Status: Acute No evidence of ACS. Troponins negative, no ischemic changes. Cardiology is following. (5) Cardiomyopathy Current Visit: Yes Status: Chronic Echo shows normal EF with mild diastolic dysfunction. No evidence of acute cardiomyopathy. Continue to monitor. Qualifiers: Cardiomyopathy type: unspecified Qualified Code(s): I42.9 - Cardiomyopathy , unspecified (6) Hypotensive episode Current Visit: Yes Status: Acute Patient became hypotensive during induction of anesthesia for his is elective procedure on Monday. Possibly related to medications however underlying infection could have contributed as well. Patient is currently hypotensive during his septic shock. He did not become acutely hypotensive during sedation for endotracheal intubation yesterday. (7) Biliary dyskinesia Current Visit: Yes Status: Chronic Patient was supposed to undergo elective cholecystectomy on Monday however this was aborted due to hypotensive episode during induction of anesthesia as discussed above. We will continue to delay surgery until the patient's clinical status has improved. Surgery is following. (8) PAF (paroxysmal atrial fibrillation) Current Visit: Yes Status: Acute Patient is currently in paced rhythm. He is on chronic anticoagulation with Eliquis at home. This is been held for procedure. Will restart tomorrow. Rate is controlled. Subjective Principal diagnosis: Hypotensive event Interval history: Patient seen and examined at bedside. Patient is intubated and minimally sedated. He is interactive and follows commands and can answer yes or no questions appropriately. He denies any pain or discomfort. Objective PUL Vital signs: Last Vital Signs Temp 97.6 F 04/07/17 07:21 Pulse 79 04/07/17 08:00 Resp 16 04/07/17 08:00 BP 110/61 04/07/17 08:00 Pulse Ox 100 04/07/17 08:00 General appearance: no acute distress ENT: oropharynx moist Effort: normal Auscultation: left: diminished breath sounds, right: clear Cardiovascular: regular rate and rhythm (Paced) Gastrointestinal: normoactive bowel sounds, soft, non-tender Extremities: no cyanosis, no edema, no clubbing normal mental status, non-focal exam Ventilator Settings Ventilator Settings: Ventilator Settings, Last 8 Hours Ventilator Mode A/C Ventilator Mode A/C Ventilator Mode A/C Ventilator Mode A/C Ventilator Mode A/C Ventilator Mode A/C Ventilator Mode A/C Ventilator Mode A/C Ventilator Mode A/C Ventilator Mode A/C Ventilator Mode A/C Ventilator Tidal Volume 550 Setting Ventilator Tidal Volume 550 Setting Ventilator Tidal Volume 550 Setting Ventilator Tidal Volume 550 Setting Ventilator Tidal Volume 550 Setting Ventilator Tidal Volume 550 Setting Ventilator Tidal Volume 550 Setting Ventilator Tidal Volume 550 Setting Ventilator Tidal Volume 550 Setting Ventilator Tidal Volume 550 Setting Ventilator Tidal Volume 550 Setting Ventilator Respiratory Rate 14 Setting Ventilator Respiratory Rate 14 Setting Ventilator Respiratory Rate 16 Setting Ventilator Respiratory Rate 16 Setting Ventilator Respiratory Rate 16 Setting Ventilator Respiratory Rate 16 Setting Ventilator Respiratory Rate 16 Setting Ventilator Respiratory Rate 16 Setting Ventilator Respiratory Rate 16 Setting Ventilator Respiratory Rate 16 Setting Ventilator Respiratory Rate 16 Setting Actual Respiratory Rate 14 Actual Respiratory Rate 14 Actual Respiratory Rate 16 Actual Respiratory Rate 16 Actual Respiratory Rate 16 Actual Respiratory Rate 16 Actual Respiratory Rate 16 Actual Respiratory Rate 16 Actual Respiratory Rate 16 Actual Respiratory Rate 16 Positive End Expiratory 12 Pressure Positive End Expiratory 12 Pressure Positive End Expiratory 12 Pressure Positive End Expiratory 12 Pressure Positive End Expiratory 12 Pressure Positive End Expiratory 12 Pressure Positive End Expiratory 12 Pressure Positive End Expiratory 12 Pressure Positive End Expiratory 12 Pressure Positive End Expiratory 12 Pressure Positive End Expiratory 12 Pressure Peak Inspiratory Airway 28 Pressure Peak Inspiratory Airway 30 Pressure Peak Inspiratory Airway 32 Pressure Peak Inspiratory Airway 32 Pressure Peak Inspiratory Airway 30 Pressure Peak Inspiratory Airway 30 Pressure Peak Inspiratory Airway 30 Pressure Peak Inspiratory Airway 30 Pressure Peak Inspiratory Airway 30 Pressure Peak Inspiratory Airway 30 Pressure Results - Laboratory Findings CBC and BMP: 04/07/17 03:03 04/07/17 03:03 ABG ABG pH 7.46 pH Units (7.32-7.45) H 04/07/17 03:55 ABG pCO2 35 mmHg (35-45) 04/07/17 03:55 ABG pO2 95 mmHg (85-104) 04/07/17 03:55 ABG O2 Saturation 98 % (95-98) 04/07/17 03:55 PT/INR, D-dimer PT 16.0 Seconds (9.4-12.1) H 04/07/17 03:03 Abnormal lab findings: Abnormal lab results WBC 20.7 K/mcL (4.3-11.1) H 04/07/17 03:03 Neutrophils # 19.3 K/mcL (1.6-8.9) H 04/07/17 03:03 Lymphocytes # 0.5 K/mcL (0.6-4.6) L 04/07/17 03:03 PT 16.0 Seconds (9.4-12.1) H 04/07/17 03:03 ABG pH 7.46 pH Units (7.32-7.45) H 04/07/17 03:55 Sodium 135 mEq/L (136-145) L 04/07/17 03:03 Glucose 157 mg/dL (70-99) H 04/07/17 03:03 POC Glucose 93 (58-89) H 04/05/17 14:59 Total Bilirubin 3.7 mg/dL (0.2-1.2) H 04/07/17 03:03 Direct Bilirubin 1.0 mg/dL (0.0-0.5) H 04/07/17 03:03 Indirect Bilirubin 2.7 mg/dL (0.0-1.2) H 04/07/17 03:03 Troponin I 0.05 ng/mL (0-0.03) H* 04/06/17 13:02 Serum Total Protein 5.7 g/dL (6.0-8.3) L 04/07/17 03:03 Albumin 2.4 g/dL (3.5-5.0) L D 04/07/17 03:03 Albumin/Globulin Ratio 0.7 (1.1-2.2) L 04/07/17 03:03 - Microbiology Findings Microbiology Findings: Microbiology, Last 48 Hours 04/06/17 20:37 Sputum Culture - Preliminary Sputum 04/06/17 17:23 Streptococcus pneumoniae Antigen (M - Final Urine,[place] 04/06/17 17:23 Legionella Antigen - Final Urine,[place] - Clinical Findings Intake & Output: Intake & Output 04/06/17 04/07/17 04/07/17 23:59 07:59 15:59 Intake Total 2128 / 2128 354 / 354 Output Total 300 / 300 150 / 150 Balance 1828 / 1828 204 / 204 - VTE Documentation of Mechanical Device: Intermittent pneumatic compression device
--- NOTE | 2017-04-07 09:59 | General Surgery Progress Note ---
Date of Encounter: 04/07/17 Time of Encounter: 09:00 - Assessment and Plan (1) Biliary dyskinesia Current Visit: Yes Status: Chronic NPO Supportive care Hold surgical intervention at this time due to hypotensive episode and acute respiratory failure (2) Cardiomyopathy Current Visit: Yes Status: Chronic Echo shows current EF of 60-65% Cardiology following for recommendations Qualifiers: Cardiomyopathy type: unspecified Qualified Code(s): I42.9 - Cardiomyopathy , unspecified (3) CAD in [place] artery Current Visit: Yes Status: Acute (4) ICD (implantable cardioverter-defibrillator) in place Current Visit: Yes Status: Chronic Interrogation ordered per cardiology (5) Hypotensive episode Current Visit: Yes Status: Acute Currently on norepinephrine at 12mcg/min, wean as tolerated Echo complete Cardiology consulted for recommendations (6) Pneumonia Current Visit: Yes Status: Acute IV antibiotic management per pulmonary/critical care IV steroids Serial chest x-rays ventilator support and management per pulmonary/critical care Qualifiers: Pneumonia type: due to unspecified organism Laterality: left Lung location: lower lobe of lung Qualified Code(s): J18.1 - Lobar pneumonia, unspecified organism (7) Acute respiratory failure with hypoxemia Current Visit: Yes Status: Acute Secondary to pneumonia IV antibiotic management per pulmonary/critical care IV steroids Serial chest x-rays ventilator support and management per pulmonary/critical care (8) PAF (paroxysmal atrial fibrillation) Current Visit: Yes Status: Acute Rate controlled at this time Recommend continuing chronic anticoagulation therapy until determination of timing for surgical intervention Subjective Patient reports: other (Patient resting on ventilator support. Follows commands and nods head appropriately. Patient on pressor support 12mcg of norepinephrine. ) Objective Vital Signs - Last 8 Hours Temp Pulse Resp BP Pulse Ox 04/07/17 09:00 73 19 118/60 100 04/07/17 08:00 79 16 110/61 100 04/07/17 07:53 14 122/63 100 04/07/17 07:21 97.6 F 04/07/17 07:00 80 04/07/17 06:01 73 16 95/58 100 04/07/17 05:09 16 93/55 100 04/07/17 05:00 74 16 96/57 100 04/07/17 04:06 97.9 F 73 16 97/61 99 04/07/17 03:35 16 97/58 99 04/07/17 03:01 70 16 106/61 99 04/07/17 02:05 70 16 104/60 100 Intake and Output 04/06/17 04/07/17 04/07/17 23:59 07:59 15:59 Intake Total 2127 / 2127 354 / 354 299 / 299 Output Total 300 / 300 150 / 150 Balance 1828 / 1828 204 / 204 299 / 299 Intake: IV Fluids 2117 / 2117 354 / 354 299 / 299 0.9 % Sodium Chloride 1,000 ML 1000 / 1000 @ 60 mls/hr IVC .[id number] [facility] Rx #:[id number] 0.9 % Sodium Chloride 500 ML @ 500 / 500 1875 mls/hr IVC .Q16M ONE Rx#: [id number] FentaNYL (PF) 1,000 MCG In 0.9 46 / 46 45 / 45 % Sodium Chloride 80 ML @ 50 MCG/HR 5 mls/hr IVC CONT [facility] Rx #:[id number] Versed 50 MG In 0.9 % Sodium 14 / 14 Chloride 90 ML @ 2 MG/HR 4 mls/ hr IVC CONT [facility] Rx#:[id number] Levophed 4 MG In Dextrose 5% 508 / 508 254 / 254 254 / 254 250 ML @ 0 MCG/MIN IVC CONT [facility] Rx#:[id number] Magnesium Sulfate Premix 2gm/ 50 / 50 50mL 2 gm In 50 ml @ 48.077 mls /hr IVPB ONCE ONE Rx#: [id number] Zosyn 3.375 GM In Dextrose 5% ( 100 / 100 Minibag+) 100 ML 100 ML @ 25 mls/hr IVPB Q8H [facility] Rx#: [id number] Oral 0 / 0 0 / 0 Free Water 10 / 10 Output: Catheter 300 / 300 150 / 150 - General physical appearance other (Patient resting on ventilator support) - Eyes PERRL, normal ocular movement - ENT normal mucosa, atraumatic, normocephalic - Neck Neck exam: trachea midline - Respiratory clear to auscultation, other (Ventilator support; PEEP of 10 with FiO2 of 50%; Diminished breath sounds bilaterally L>R) - Cardiovascular Cardiovascular exam: Present: irregular rhythm (Atrial fibrillation) - Abdomen Abdomen: Present: bowel sounds present, soft, non tender (no grimace with palpation), wound (OG to LIWS) - Genitourinary other (steinberg catheter to SD with clear, yellow urine) - Neurologic CN 2-12 grossly intact - Musculoskeletal other (Follows commands and moves all extremities) - Psychiatric other (Unable to assess at this time) - Labs 04/07/17 03:03 04/07/17 03:03 Diabetes panel 04/06/17 04/06/17 04/06/17 Range/Units 13:02 13:02 16:40 Sodium 137 136 137 (136-145) mEq/L Potassium 4.1 4.1 4.0 (3.5-4.5) mEq/L Chloride 96 L 96 L 101 (98-109) mEq/L Carbon Dioxide 33 H 33 H 28 (19-29) mEq/L BUN 12 12 16 (8-26) mg/dL Creatinine 0.72 0.74 0.93 (0.72-1.25) mg/dL Glucose 111 H 112 H 99 (70-99) mg/dL Calcium 10.4 10.4 9.1 (8.6-10.8) mg/dL AST 22 (5-34) Units/L ALT 29 (0-55) Units/L Alkaline Phosphatase 173 H (38-126) Units/L Albumin 3.4 L (3.5-5.0) g/dL 04/07/17 Range/Units 03:03 Sodium 135 L (136-145) mEq/L Potassium 4.1 (3.5-4.5) mEq/L Chloride 102 (98-109) mEq/L Carbon Dioxide 25 (19-29) mEq/L BUN 20 (8-26) mg/dL Creatinine 1.07 (0.72-1.25) mg/dL Glucose 157 H (70-99) mg/dL Calcium 8.9 (8.6-10.8) mg/dL AST 26 (5-34) Units/L ALT 24 (0-55) Units/L Alkaline Phosphatase 115 (38-126) Units/L Albumin 2.4 L D (3.5-5.0) g/dL Calcium panel 04/06/17 04/06/17 04/06/17 Range/Units 13: 13:02 16:40 Calcium 10.4 10.4 9.1 (8.6-10.8) mg/dL Phosphorus (2.3-4.7) mg/dL Albumin 3.4 L (3.5-5.0) g/dL 04/07/17 Range/Units 03:03 Calcium 8.9 (8.6-10.8) mg/dL Phosphorus 2.6 (2.3-4.7) mg/dL Albumin 2.4 L D (3.5-5.0) g/dL Pituitary panel 04/06/17 04/06/17 04/06/17 Range/Units 13: 13: 16:40 Sodium 137 136 137 (136-145) mEq/L Potassium 4.1 4.1 4.0 (3.5-4.5) mEq/L Chloride 96 L 96 L 101 (98-109) mEq/L Carbon Dioxide 33 H 33 H 28 (19-29) mEq/L BUN 12 12 16 (8-26) mg/dL Creatinine 0.72 0.74 0.93 (0.72-1.25) mg/dL Glucose 111 H 112 H 99 (70-99) mg/dL Calcium 10.4 10.4 9.1 (8.6-10.8) mg/dL 04/07/17 Range/Units 03:03 Sodium 135 L (136-145) mEq/L Potassium 4.1 (3.5-4.5) mEq/L Chloride 102 (98-109) mEq/L Carbon Dioxide 25 (19-29) mEq/L BUN 20 (8-26) mg/dL Creatinine 1.07 (0.72-1.25) mg/dL Glucose 157 H (70-99) mg/dL Calcium 8.9 (8.6-10.8) mg/dL Adrenal panel 04/06/17 04/06/17 04/06/17 Range/Units 13: 13: 16:40 Sodium 137 136 137 (136-145) mEq/L Potassium 4.1 4.1 4.0 (3.5-4.5) mEq/L Chloride 96 L 96 L 101 (98-109) mEq/L Carbon Dioxide 33 H 33 H 28 (19-29) mEq/L BUN 12 12 16 (8-26) mg/dL Creatinine 0.72 0.74 0.93 (0.72-1.25) mg/dL Glucose 111 H 112 H 99 (70-99) mg/dL Calcium 10.4 10.4 9.1 (8.6-10.8) mg/dL Total Bilirubin 2.6 H (0.2-1.2) mg/dL AST 22 (5-34) Units/L ALT 29 (0-55) Units/L Alkaline Phosphatase 173 H (38-126) Units/L Albumin 3.4 L (3.5-5.0) g/dL 04/07/17 Range/Units 03:03 Sodium 135 L (136-145) mEq/L Potassium 4.1 (3.5-4.5) mEq/L Chloride 102 (98-109) mEq/L Carbon Dioxide 25 (19-29) mEq/L BUN 20 (8-26) mg/dL Creatinine 1.07 (0.72-1.25) mg/dL Glucose 157 H (70-99) mg/dL Calcium 8.9 (8.6-10.8) mg/dL Total Bilirubin 3.7 H (0.2-1.2) mg/dL AST 26 (5-34) Units/L ALT 24 (0-55) Units/L Alkaline Phosphatase 115 (38-126) Units/L Albumin 2.4 L D (3.5-5.0) g/dL - VTE Documentation of Mechanical Device: Intermittent pneumatic compression device Consult Discharge Plan - Plan Referrals: Ellen Vora DO [Primary Care Provider] - - Attending Attestation For this encounter, I have reviewed the ACCIDENT EXAMINER or PA documentation, treatment plan, and medical decision making; and I have had face to face time with this patient.
[2017-04-07] MEDS ORDERED: *HR* Rocuronium Bromide 100 MG/10 ML VIAL IVC ONE (11:08)
[2017-04-07] MEDS ORDERED: *HR* Midazolam HCl 2 MG/2 ML VIAL IV ONE (11:08)
[2017-04-07] MEDS: FentaNYL (PF) 1,000 MCG in 0.9 % Sodium Chloride 80 ML IVC SCH (11:10)
[2017-04-07] MEDS: Sennosides/Docusate Sodium TABLET PO SCH ×2 (11:53→21:24)
[2017-04-07] MEDS ORDERED: Ringers Solution, Lactated 1,000 ML IVC ONE (12:13)
[2017-04-07] MEDS ORDERED: Ringers Solution, Lactated 500 ML IVC ONE (12:34)
[2017-04-07] MEDS ORDERED: Ringers Solution, Lactated 1,000 ML ONE (12:57)
[2017-04-07 14:16] LABS: ABG Base Excess 0 mEq/L (-2 to 3); ABG HCO3 26 mEq/L (21-27); ABG Oxygen Saturation 98 % (95-98); ABG PCO2 48 mmHg (35-45); ABG PH 7.35 pH Units (7.32-7.45); ABG PO2 105 mmHg (85-104); ABG TCO2 28 mEq/L (20-26); Blood Gas Modality VC; Blood Gas PEEP 8 cm H2O; Blood Gas Respiration Rate 14; Blood Gas VT 550 cc
[2017-04-07] MEDS: Piperacillin/Tazobactam 3.375 GM in D5% in Water 50 ML IVPB SCH ×2 (16:00→23:41)
[2017-04-07] MEDS: Dexmedetomidine HCl 400 MCG/100 ML MLS IVC SCH (18:04)
[2017-04-07 19:15] LABS: Hematocrit 37.9 % (37.5-50.1); Hemoglobin 12.2 g/dL (12.9-16.9); Lymphocytes # 0.5 K/mcL (0.6-4.6); Mean Corpuscular HGB Conc 32.2 g/dL (31.6-35.5); Mean Corpuscular Hemoglobin 29.1 pg (28.0-33.3); Mean Corpuscular Volume 90.5 fL (83.0-100.0); Mean Platelet Volume 9.5 fL (9.4-12.4); Monocytes # 0.7 K/mcL (0.0-1.3); Platelet Count 134 K/mcL (140-400); Red Blood Count 4.19 M/mcL (4.19-5.50); Red Cell Distribution Width 14.4 % (11.5-14.5)
[2017-04-07 19:22] LABS: BUN/Creatinine Ratio 24 (6-26); Blood Urea Nitrogen 20 mg/dL (8-26); Calcium 8.5 mg/dL (8.6-10.8); Carbon Dioxide 23 mEq/L (19-29); Chloride 104 mEq/L (98-109); Glucose 153 mg/dL (70-99); Magnesium 1.4 mg/dL (1.6-2.6); Osmolality,Calculated 286 (280-300); Potassium 4.1 mEq/L (3.5-4.5); Sodium 135 mEq/L (136-145); eGFR For African Americans > 60 (> 60); eGFR For Non-African Americans > 60 (> 60)
[2017-04-07 19:44] LABS: Platelet Estimate Slight Decrease (Normal)
[2017-04-08] MEDS ORDERED: Vancomycin 750 MG in D5% in Water 250 ML IVPB SCH (03:00)
[2017-04-08] MEDS: FentaNYL (PF) 1,000 MCG in 0.9 % Sodium Chloride 80 ML IVC SCH ×3 (03:27→20:36)
[2017-04-08] MEDS: Ipratropium/Albuterol Neb 3 ML IH SCH ×6 (03:42→23:46)
[2017-04-08] MEDS: Lacri-Lube 3.5 GM TUBE BOTH EYES SCH ×6 (04:13→23:11)
[2017-04-08] MEDS: Dexmedetomidine HCl 400 MCG/100 ML MLS IVC SCH ×3 (04:14→22:53)
[2017-04-08 04:22] LABS: Ionized Calcium 1.26 mmol/L (1.15-1.35)
[2017-04-08 04:24] LABS: Basophils % 0.1 %; Hematocrit 37.7 % (37.5-50.1); Hemoglobin 12.2 g/dL (12.9-16.9); Immature Granulocytes % 2.8 % (0-4); Lymphocytes # 0.4 K/mcL (0.6-4.6); Lymphocytes % 1.9 %; Mean Corpuscular HGB Conc 32.4 g/dL (31.6-35.5); Mean Corpuscular Volume 89.8 fL (83.0-100.0); Mean Platelet Volume 9.5 fL (9.4-12.4); Monocytes # 0.4 K/mcL (0.0-1.3); Monocytes % 2.1 %; Platelet Count 115 K/mcL (140-400); Red Cell Distribution Width 14.4 % (11.5-14.5); Segmented Neutrophils % 93.1 %
[2017-04-08 04:25] LABS: Neutrophils # 17.8 K/mcL (1.6-8.9)
[2017-04-08 04:29] LABS: ABG Base Excess 3 mEq/L (-2 to 3); ABG HCO3 30 mEq/L (21-27); ABG Oxygen Saturation 97 % (95-98); ABG PCO2 51 mmHg (35-45); ABG PH 7.37 pH Units (7.32-7.45); ABG PO2 100 mmHg (85-104); ABG TCO2 31 mEq/L (20-26); Blood Gas Modality ASSIST CONTROL; Blood Gas PEEP 8 cm H2O; Blood Gas Respiration Rate 14; Blood Gas VT 550 cc
[2017-04-08 04:31] LABS: Alanine Aminotransferase 27 Units/L (0-55); Albumin 2.1 g/dL (3.5-5.0); Albumin/Globulin Ratio 0.6 (1.1-2.2); Alkaline Phosphatase 98 Units/L (38-126); Aspartate Amino Transferase 32 Units/L (5-34); BUN/Creatinine Ratio 24 (6-26); Bilirubin,Indirect 1.9 mg/dL (0.0-1.2); Bilirubin,Total 4.1 mg/dL (0.2-1.2); Blood Urea Nitrogen 20 mg/dL (8-26); Calcium 9.4 mg/dL (8.6-10.8); Carbon Dioxide 27 mEq/L (19-29); Chloride 99 mEq/L (98-109); Globulin 3.5 g/dL (2.4-3.5); Glucose 169 mg/dL (70-99); Magnesium 1.7 mg/dL (1.6-2.6); Osmolality,Calculated 285 (280-300); Phosphorous 2.4 mg/dL (2.3-4.7); Potassium 4.3 mEq/L (3.5-4.5); Total Protein 5.6 g/dL (6.0-8.3); eGFR For African Americans > 60 (> 60); eGFR For Non-African Americans > 60 (> 60)
[2017-04-08 04:32] LABS: Bilirubin,Direct 2.2 mg/dL (0.0-0.5); Sodium 134 mEq/L (136-145)
[2017-04-08 04:40] LABS: Large Platelets Present (Not Present); Platelet Estimate Slight Decrease (Normal)
[2017-04-08] MEDS: Piperacillin/Tazobactam 3.375 GM in D5% in Water 50 ML IVPB SCH ×3 (06:19→23:07)
[2017-04-08] MEDS: Chlorhexidine Rinse 15 ML MOUTHWASH MM SCH ×2 (09:00→20:31)
[2017-04-08] MEDS: *HR* Heparin 5,000 UNIT/ML VIAL SQ SCH (09:00)
[2017-04-08] MEDS: APIXABAN 5 MG TABLET PO SCH ×2 (09:01→20:31)
[2017-04-08] MEDS: MethylPREDNISolone 40 MG/ML VIAL IVP SCH (09:01)
[2017-04-08] MEDS: Sennosides/Docusate Sodium TABLET PO SCH ×2 (09:01→20:31)
[2017-04-08] MEDS: Pantoprazole 40 MG VIAL IVP SCH (09:01)
--- NOTE | 2017-04-08 09:43 | Pulmonology Progress Note ---
Date of Encounter: 04/08/17 Time of Encounter: 09:43 Assessment and Plan (1) Acute and chronic respiratory failure with hypoxia Current Visit: Yes Status: Acute Labs, radiology, chart personally reviewed. Management was reviewed during multidisciplinary critical care rounds. Neuropsych: Awake alert follows command delirium suspected (mixed) continue to avoid sensory deprivation focus on sleep-wake cycle oriental orthodox only narcotic and Precedex is able to Goal [place] of 2 . Pulm: Acute hypoxic respiratory failure s/t to Lobar PNA suspected aspiration complicated by MSK deformity (kyphoscoliosis). Dramatic improvement over last 24 hours and oxygen requirements in fact he was able to undergo a spontaneous breathing trial today however he quickly failed I suspect this is more related to agitation. Place back on before meals mode ventilation will try spontaneous breathing trial again tomorrow as clinically indicated. 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 Chronic Afib. Cont NOAC. Distributive shock secondary to sepsis continue vasopressor for goal MAP 65 FEN-GI:PPI prophylaxis given. Cont enternal nutrition today and Bowel. Regimen. Appreciate nutrition consultation. History of possible biliary dyskinesia with plan for cholecystectomy this is on hold at present general surgery is following the patient appreciate their evaluation. Renal: Serum creatinine is trending down urine output has been adequate electrolytes are being monitored and replaced per protocol continue to follow he requires a Smith catheter because of shock and need for strict intake and output and patient is on ventilator ID: Septic shock s/t to PNA appears to be growing strep from sputum culture stop vancomycin today continue Zosyn with planned to further de-escalate based upon microbiological data. Heme/Onc: Continue anticoagulation for atrial fibrillation Endo: Glucose Monitored Integ/MSK: Skin Care per routine ICU Nursing Protocol to prevent ulcers. Lines: All lines examined without evidence of infection Dispo: Remains Critically ill CODE: Family updated at bedside he remains full code. (2) CAD in [place] artery Current Visit: Yes Status: Acute (3) Hypotensive episode Current Visit: Yes Status: Acute (4) PAF (paroxysmal atrial fibrillation) Current Visit: Yes Status: Acute (5) Biliary dyskinesia Current Visit: Yes Status: Chronic (6) Cardiomyopathy Current Visit: Yes Status: Chronic Qualifiers: Cardiomyopathy type: unspecified Qualified Code(s): I42.9 - Cardiomyopathy , unspecified Subjective Principal diagnosis: Hypotensive event Interval history: Mr. Mariscal continues to improve. Norepinephrine has been weaned down to under 5 mics of continuous and fusion. Ventilatory requirements are minimal is down to 40% FiO2 and 5 repeat. He is awake and following commands but periods of agitation requiring narcotic and Precedex. His family diligently remains at bedside Objective PUL Vital signs: Last Vital Signs Temp 97.9 F 04/08/17 08:00 Pulse 71 04/08/17 09:00 Resp 14 04/08/17 09:00 BP 110/63 04/08/17 09:00 Pulse Ox 100 04/08/17 09:00 General appearance: no acute distress Eyes: nonicteric Effort: normal Auscultation: left: diminished breath sounds, right: clear Cardiovascular: regular rate and rhythm Gastrointestinal: normoactive bowel sounds, soft Integumentary: normal Extremities: no cyanosis, no edema, no clubbing pupils equal and round, other (Moves all extremities to command) Ventilator Settings Ventilator Settings: Ventilator Settings, Last 8 Hours Ventilator Mode VC+ Ventilator Mode VC+ Ventilator Mode VC+ Ventilator Mode VC+ Ventilator Mode VC+ Ventilator Mode VC+ Ventilator Mode A/C Ventilator Tidal Volume 550 Setting Ventilator Tidal Volume 550 Setting Ventilator Tidal Volume 550 Setting Ventilator Tidal Volume 550 Setting Ventilator Tidal Volume 550 Setting Ventilator Tidal Volume 550 Setting Ventilator Tidal Volume 550 Setting Ventilator Respiratory Rate 14 Setting Ventilator Respiratory Rate 14 Setting Ventilator Respiratory Rate 14 Setting Ventilator Respiratory Rate 14 Setting Ventilator Respiratory Rate 14 Setting Ventilator Respiratory Rate 14 Setting Ventilator Respiratory Rate 14 Setting Actual Respiratory Rate 14 Actual Respiratory Rate 14 Actual Respiratory Rate 14 Actual Respiratory Rate 14 Actual Respiratory Rate 14 Actual Respiratory Rate 14 Positive End Expiratory 5 Pressure Positive End Expiratory 5 Pressure Positive End Expiratory 5 Pressure Positive End Expiratory 5 Pressure Positive End Expiratory 8 Pressure Positive End Expiratory 8 Pressure Positive End Expiratory 8 Pressure Peak Inspiratory Airway 24 Pressure Peak Inspiratory Airway 20 Pressure Peak Inspiratory Airway 26 Pressure Peak Inspiratory Airway 20 Pressure Peak Inspiratory Airway 22 Pressure Peak Inspiratory Airway 24 Pressure Results - Laboratory Findings CBC and BMP: 04/08/17 04:05 04/08/17 04:05 ABG ABG pH 7.37 pH Units (7.32-7.45) 04/08/17 04:24 ABG pCO2 51 mmHg (35-45) H 04/08/17 04:24 ABG pO2 100 mmHg (85-104) 04/08/17 04:24 ABG O2 Saturation 97 % (95-98) 04/08/17 04:24 PT/INR, D-dimer PT 16.0 Seconds (9.4-12.1) H 04/07/17 03:03 Abnormal lab findings: Abnormal lab results WBC 19.1 K/mcL (4.3-11.1) H 04/08/17 04:05 Hgb 12.2 g/dL (12.9-16.9) L 04/08/17 04:05 Plt Count 115 K/mcL (140-400) L 04/08/17 04:05 Band Neutrophils % 21.0 % (0-4) H 04/07/17 18:58 Metamyelocytes % 3.0 % (0) H 04/07/17 18:58 Neutrophils # 17.8 K/mcL (1.6-8.9) H 04/08/17 04:05 Lymphocytes # 0.4 K/mcL (0.6-4.6) L 04/08/17 04:05 Platelet Estimate Slight Decrease (Normal) L 04/08/17 04:05 Large Platelets Present (Not Present) A 04/08/17 04:05 PT 16.0 Seconds (9.4-12.1) H 04/07/17 03:03 ABG pCO2 51 mmHg (35-45) H 04/08/17 04:24 ABG HCO3 30 mEq/L (21-27) H 04/08/17 04:24 ABG Total CO2 31 mEq/L (20-26) H 04/08/17 04:24 Sodium 134 mEq/L (136-145) L 04/08/17 04:05 Glucose 169 mg/dL (70-99) H 04/08/17 04:05 POC Glucose 135 (58-89) H 04/08/17 00:28 Total Bilirubin 4.1 mg/dL (0.2-1.2) H 04/08/17 04:05 Direct Bilirubin 2.2 mg/dL (0.0-0.5) H 04/08/17 04:05 Indirect Bilirubin 1.9 mg/dL (0.0-1.2) H 04/08/17 04:05 Troponin I 0.05 ng/mL (0-0.03) H* 04/06/17 13:02 Serum Total Protein 5.6 g/dL (6.0-8.3) L 04/08/17 04:05 Albumin 2.1 g/dL (3.5-5.0) L 04/08/17 04:05 Albumin/Globulin Ratio 0.6 (1.1-2.2) L 04/08/17 04:05 - Microbiology Findings Microbiology Findings: Microbiology, Last 48 Hours 04/06/17 17:50 Blood Culture - Preliminary Peripheral Venipuncture No growth. 04/06/17 17:50 Blood Culture - Preliminary Peripheral Venipuncture No growth. 04/06/17 20:37 Sputum Culture - Preliminary Sputum Streptococcus species 04/06/17 17:23 Urine Culture - Final Urine,[place] No growth. 04/06/17 17:23 Streptococcus pneumoniae Antigen (M - Final Urine,[place] 04/06/17 17:23 Legionella Antigen - Final Urine,[place] - Clinical Findings Intake & Output: Intake & Output 04/07/17 04/08/17 04/08/17 23:59 07:59 15:59 Intake Total 670 / 670 761 / 761 Output Total 150 / 150 675 / 675 150 / 150 Balance 520 / 520 86 / 86 -150 / -150 Weight 81.1 kg - VTE Documentation of Mechanical Device: Intermittent pneumatic compression device Consult Discharge Plan - Plan Referrals: Ellen Vora DO [Primary Care Provider] -
--- NOTE | 2017-04-08 11:33 | Electrocardiograph Report ---
[address] [address] Test Date: 2017-04-05 Pat Name: Mata Mariscal Department: 109 Room: [facility] Gender: M [employer] Product Manager: RODRIGUEZ : 1940 Requested By: William Dewey Order Number: [id number] Reading MD: Risa Meyer Measurements Intervals [place] Rate: 72 P: 123 UT: 133 QRS: 241 QRSD: 161 T: 41 QT: 414 QTc: 438 Interpretive Statements ELECTRONIC ATRIAL PACEMAKER ELECTRONIC VENTRICULAR PACEMAKER ABNORMAL RHYTHM ECG Electronically Signed On 04-08-2017 11:31:50 EDT by Risa Meyer
--- NOTE | 2017-04-08 14:47 | General Surgery Progress Note ---
<Jas Mcdermott - Last Filed: 04/08/17 15:03> Date of Encounter: 04/08/17 Time of Encounter: 13:00 - Assessment and Plan (1) Acute respiratory failure with hypoxemia Current Visit: Yes Status: Acute Patient's episode of acute respiratory failure was likely due to pneumonia. -Patient is currently on IV antibiotics: Vancomycin 1.25 g IV every 12 hours and Zosyn 3.375 g every 8 hours. -Ipratropium/albuterol. -Solu-Medrol 40 mg IV every 8 hours -Ventilator support and management per pulmonology/critical care -Patient is currently intubated. -Serial chest x-rays. -Last chest x-ray revealed the following: Left perihilar airspace disease suggestive of pneumonia. (2) PAF (paroxysmal atrial fibrillation) Current Visit: Yes Status: Acute Patient is currently rate controlled at this time. -Coreg 3.125 mg by mouth twice a day. -Continue to closely monitor vital signs. -Eliquis 5mg PO BID. -Heparin 5000 subcutaneous q8h. (3) Cardiomyopathy Current Visit: Yes Status: Chronic Echocardiogram showed current ejection fraction of 60-65%. -Cardiology is currently on board. -Continue to monitor vital signs and cardiovascular function. Qualifiers: Cardiomyopathy type: unspecified Qualified Code(s): I42.9 - Cardiomyopathy , unspecified (4) ICD (implantable cardioverter-defibrillator) in place Current Visit: Yes Status: Chronic Interrogation ordered per cardiology. (5) Hypotensive episode Current Visit: Yes Status: Acute Patient is currently on norepinephrine 4 mg. Wean as tolerated. Cardiology is currently on board for recommendations. Last blood pressure was 115/64. (6) Biliary dyskinesia Current Visit: Yes Status: Chronic Nothing by mouth. -Supportive care. -Surgical intervention is being held at this time due to patient's hypotensive episode and respiratory failure. -Patient currently receiving IV antibiotics. -Currently intubated. -Closely monitor vital signs. (7) Pneumonia Current Visit: Yes Status: Acute Qualifiers: Pneumonia type: due to unspecified organism Laterality: left Lung location: lower lobe of lung Qualified Code(s): J18.1 - Lobar pneumonia, unspecified organism Subjective Narrative: Patient was seen and examined at bedside this afternoon. Patient's family is in the room and provided the patient's history. Patient is currently intubated and asleep. Currently unresponsive. His family reports that earlier he became agitated when the staff attempted to remove this to. His family also reports that he has been coughing up green-colored phlegm. The family states that the patient has not had any nausea or vomiting. They do report that the patient's skin appears more yellow than normal. Objective Vital Signs - Last 8 Hours Temp Pulse Resp BP Pulse Ox 04/08/17 14:09 14 100 04/08/17 14:00 72 14 115/64 100 04/08/17 13:00 73 14 95/54 100 04/08/17 12:00 98.4 F 73 14 95/54 100 04/08/17 11:14 16 100 04/08/17 11:00 70 14 110/61 100 04/08/17 10:25 14 100 04/08/17 10:00 70 14 101/56 100 04/08/17 09:00 71 14 110/63 100 04/08/17 08:01 14 100 04/08/17 08:00 97.9 F 70 14 125/69 100 04/08/17 07:00 72 14 109/61 100 Intake and Output 04/07/17 04/08/17 04/08/17 23:59 07:59 15:59 Intake Total 670 / 670 761 / 761 561 / 561 Output Total 150 / 150 675 / 675 350 / 350 Balance 520 / 520 86 / 86 211 / 211 Intake: IV Fluids 670 / 670 433 / 433 250 / 250 PRECEDEX Premix 400 mcg In 100 60 / 60 50 / 50 100 / 100 ml @ 0.2 MCG/KG/HR 3.98 mls/hr IVC .Q24H [facility] Rx#:[id number] FentaNYL (PF) 1,000 MCG In 0.9 96 / 96 4 / 4 100 / 100 % Sodium Chloride 80 ML @ 50 MCG/HR 5 mls/hr IVC CONT [facility] Rx #:[id number] Levophed 4 MG In Dextrose 5% 214 / 214 79 / 79 250 ML @ 0 MCG/MIN IVC CONT [facility] Rx#:[id number] Zosyn 3.375 GM In Dextrose 5% ( 50 / 50 50 / 50 50 / 50 ADD-[place]) 50 ML @ 12.5 mls/ hr IVPB Q8H [facility] Rx#:[id number] Vancocin 1,250 MG In Dextrose 5 250 / 250 % 250 ML @ 166.667 mls/hr IVPB Q12H [facility] Rx#:[id number] Vancocin 750 MG In Dextrose 5% 250 / 250 250 ML @ 250 mls/hr IVPB Q12H [facility] Rx#:[id number] Tube Feeding 328 / 328 311 / 311 Output: Catheter 150 / 150 675 / 675 350 / 350 Gastric Drainage 0 / 0 Other: Weight 81.1 kg Blood Glucose* 135 110 Patient Weight 04/08/17 23:59 Weight 81.1 kg - General physical appearance jaundice - Cardiovascular Cardiovascular exam: Present: RRR, no murmurs/rubs/gallops - Abdomen Abdomen: Present: bowel sounds present - Labs 04/08/17 04:05 04/08/17 04:05 Diabetes panel 04/07/17 04/08/17 Range/Units 18:58 04:05 Sodium 135 L 134 L (136-145) mEq/L Potassium 4.1 4.3 (3.5-4.5) mEq/L Chloride 104 99 (98-109) mEq/L Carbon Dioxide 23 27 (19-29) mEq/L BUN 20 20 (8-26) mg/dL Creatinine 0.85 0.85 (0.72-1.25) mg/dL Glucose 153 H 169 H (70-99) mg/dL Calcium 8.5 L 9.4 (8.6-10.8) mg/dL AST 32 (5-34) Units/L ALT 27 (0-55) Units/L Alkaline Phosphatase 98 (38-126) Units/L Albumin 2.1 L (3.5-5.0) g/dL Calcium panel 04/07/17 04/08/17 Range/Units 18:58 04:05 Calcium 8.5 L 9.4 (8.6-10.8) mg/dL Phosphorus 2.4 (2.3-4.7) mg/dL Albumin 2.1 L (3.5-5.0) g/dL Pituitary panel 04/07/17 04/08/17 Range/Units 18:58 04:05 Sodium 135 L 134 L (136-145) mEq/L Potassium 4.1 4.3 (3.5-4.5) mEq/L Chloride 104 99 (98-109) mEq/L Carbon Dioxide 23 27 (19-29) mEq/L BUN 20 20 (8-26) mg/dL Creatinine 0.85 0.85 (0.72-1.25) mg/dL Glucose 153 H 169 H (70-99) mg/dL Calcium 8.5 L 9.4 (8.6-10.8) mg/dL Adrenal panel 04/07/17 04/08/17 Range/Units 18:58 04:05 Sodium 135 L 134 L (136-145) mEq/L Potassium 4.1 4.3 (3.5-4.5) mEq/L Chloride 104 99 (98-109) mEq/L Carbon Dioxide 23 27 (19-29) mEq/L BUN 20 20 (8-26) mg/dL Creatinine 0.85 0.85 (0.72-1.25) mg/dL Glucose 153 H 169 H (70-99) mg/dL Calcium 8.5 L 9.4 (8.6-10.8) mg/dL Total Bilirubin 4.1 H (0.2-1.2) mg/dL AST 32 (5-34) Units/L ALT 27 (0-55) Units/L Alkaline Phosphatase 98 (38-126) Units/L Albumin 2.1 L (3.5-5.0) g/dL - VTE Documentation of Mechanical Device: Intermittent pneumatic compression device Consult Discharge Plan - Plan Referrals: Ellen Vora DO [Primary Care Provider] - <Jennifer Maharaj - Last Filed: 04/09/17 15:11> Date of Encounter: 04/08/17 - Assessment and Plan (1) Acute respiratory failure with hypoxemia Current Visit: Yes Status: Acute (2) Septic shock Current Visit: Yes Status: Acute still on pressor supprot managment per CCM (3) Biliary dyskinesia Current Visit: Yes Status: Chronic Subjective Narrative: patient intubated and sedated, unable to evaluate subjectively per nurse patient very agitated early and concerns for accidental extubation prompted increased sedation Objective Vital Signs - Last 8 Hours Temp Pulse Resp BP Pulse Ox 04/09/17 14:00 70 14 120/66 100 04/09/17 13:00 70 16 120/66 97 04/09/17 12:00 70 18 83/51 97 11/05/17 11:31 29 179/78 98 11/05/17 11:00 70 28 93/50 96 04/09/17 10:00 70 28 81/51 97 04/09/17 09:18 23 121/65 98 04/09/17 09:00 69 22 138/70 98 04/09/17 08:00 98.9 F 71 15 84/46 97 04/09/17 07:28 15 133/60 97 Intake and Output 04/09/17 04/09/17 04/09/17 00:59 07:59 15:59 Intake Total Output Total Balance Intake: IV Fluids PRECEDEX Premix 400 mcg In 100 ml @ 0.2 MCG/KG/HR 3.98 mls/hr IVC .Q24H [facility] Rx#:[id number] FentaNYL (PF) 1,000 MCG In 0.9 29 / 29 % Sodium Chloride 80 ML @ 50 MCG/HR 5 mls/hr IVC CONT [facility] Rx #:[id number] Levophed 4 MG In Dextrose 5% 250 ML @ 0 MCG/MIN IVC CONT [facility] Rx#:[id number] Diprivan 1,000 mg In 100 ml @ 22 / 22 20 MCG/KG/MIN 9.732 mls/hr IVC .[id number] [facility] Rx#:[id number] Zosyn 3.375 GM In Dextrose 5% ( ADD-[place]) 50 ML @ 12.5 mls/ hr IVPB Q8H [facility] Rx#:[id number] Tube Feeding Output: Catheter Other: Weight Blood Glucose* Patient Weight 04/09/17 22:59 Weight 81.5 kg - General physical appearance well nourished, no distress, jaundice, other (sedated) - Eyes pinpoint pupil - ENT dry mucosa - Neck Neck exam: trachea midline - Respiratory normal expansion, clear to auscultation - Cardiovascular Cardiovascular exam: Present: RRR - Abdomen Abdomen: Present: bowel sounds present (no wincing with palpation due to sedation) - Integumentary no rash, other (jaundice) - Psychiatric other (sedated) - Labs 04/09/17 03:10 04/09/17 03:10 Diabetes panel 04/09/17 Range/Units 03:10 Sodium 136 (136-145) mEq/L Potassium 3.8 (3.5-4.5) mEq/L Chloride 101 (98-109) mEq/L Carbon Dioxide 29 (19-29) mEq/L BUN 24 (8-26) mg/dL Creatinine 0.76 (0.72-1.25) mg/dL Glucose 130 H (70-99) mg/dL Calcium 9.4 (8.6-10.8) mg/dL AST 31 (5-34) Units/L ALT 30 (0-55) Units/L Alkaline Phosphatase 99 (38-126) Units/L Albumin 1.9 L (3.5-5.0) g/dL Calcium panel 04/09/17 Range/Units 03:10 Calcium 9.4 (8.6-10.8) mg/dL Phosphorus 2.2 L (2.3-4.7) mg/dL Albumin 1.9 L (3.5-5.0) g/dL Pituitary panel 04/09/17 Range/Units 03:10 Sodium 136 (136-145) mEq/L Potassium 3.8 (3.5-4.5) mEq/L Chloride 101 (98-109) mEq/L Carbon Dioxide 29 (19-29) mEq/L BUN 24 (8-26) mg/dL Creatinine 0.76 (0.72-1.25) mg/dL Glucose 130 H (70-99) mg/dL Calcium 9.4 (8.6-10.8) mg/dL Adrenal panel 04/09/17 Range/Units 03:10 Sodium 136 (136-145) mEq/L Potassium 3.8 (3.5-4.5) mEq/L Chloride 101 (98-109) mEq/L Carbon Dioxide 29 (19-29) mEq/L BUN 24 (8-26) mg/dL Creatinine 0.76 (0.72-1.25) mg/dL Glucose 130 H (70-99) mg/dL Calcium 9.4 (8.6-10.8) mg/dL Total Bilirubin 3.6 H (0.2-1.2) mg/dL AST 31 (5-34) Units/L ALT 30 (0-55) Units/L Alkaline Phosphatase 99 (38-126) Units/L Albumin 1.9 L (3.5-5.0) g/dL - Attending Attestation I examined this patient and my medical decision-making was reviewed with the Resident Physician. I agree with the documented findings, disposition and treatment plan as described except to the extent set forth below.
[2017-04-09] MEDS: Ipratropium/Albuterol Neb 3 ML IH SCH ×5 (03:34→19:50)
[2017-04-09 03:37] LABS: Basophils % 0.1 %; Hematocrit 34.1 % (37.5-50.1); Hemoglobin 11.3 g/dL (12.9-16.9); Immature Granulocytes % 6.8 % (0-4); Lymphocytes # 0.3 K/mcL (0.6-4.6); Lymphocytes % 1.7 %; Mean Corpuscular HGB Conc 33.1 g/dL (31.6-35.5); Mean Corpuscular Hemoglobin 29.2 pg (28.0-33.3); Mean Corpuscular Volume 88.1 fL (83.0-100.0); Mean Platelet Volume 10.1 fL (9.4-12.4); Monocytes # 0.5 K/mcL (0.0-1.3); Monocytes % 3.3 %; Neutrophils # 13.8 K/mcL (1.6-8.9); Platelet Count 111 K/mcL (140-400); Red Blood Count 3.87 M/mcL (4.19-5.50); Red Cell Distribution Width 14.6 % (11.5-14.5); Segmented Neutrophils % 88.1 %
[2017-04-09 03:49] LABS: Alanine Aminotransferase 30 Units/L (0-55); Albumin 1.9 g/dL (3.5-5.0); Albumin/Globulin Ratio 0.5 (1.1-2.2); Alkaline Phosphatase 99 Units/L (38-126); Aspartate Amino Transferase 31 Units/L (5-34); BUN/Creatinine Ratio 32 (6-26); Bilirubin,Direct 2.3 mg/dL (0.0-0.5); Bilirubin,Indirect 1.3 mg/dL (0.0-1.2); Bilirubin,Total 3.6 mg/dL (0.2-1.2); Blood Urea Nitrogen 24 mg/dL (8-26); Calcium 9.4 mg/dL (8.6-10.8); Carbon Dioxide 29 mEq/L (19-29); Chloride 101 mEq/L (98-109); Globulin 3.5 g/dL (2.4-3.5); Glucose 130 mg/dL (70-99); Osmolality,Calculated 288 (280-300); Phosphorous 2.2 mg/dL (2.3-4.7); Potassium 3.8 mEq/L (3.5-4.5); Sodium 136 mEq/L (136-145); Total Protein 5.4 g/dL (6.0-8.3); eGFR For African Americans > 60 (> 60); eGFR For Non-African Americans > 60 (> 60)
[2017-04-09] MEDS: Lacri-Lube 3.5 GM TUBE BOTH EYES SCH ×6 (03:55→23:31)
[2017-04-09 03:58] LABS: Ionized Calcium 1.29 mmol/L (1.15-1.35)
[2017-04-09 04:01] LABS: Platelet Estimate Slight Decrease (Normal)
[2017-04-09 05:17] LABS: ABG Base Excess 5 mEq/L (-2 to 3); ABG HCO3 29 mEq/L (21-27); ABG Oxygen Saturation 95 % (95-98); ABG PCO2 43 mmHg (35-45); ABG PH 7.44 pH Units (7.32-7.45); ABG PO2 74 mmHg (85-104); ABG TCO2 31 mEq/L (20-26); Blood Gas Modality ASSIST CONTROL; Blood Gas PEEP 5 cm H2O; Blood Gas Respiration Rate 14; Blood Gas VT 550 cc
[2017-04-09] MEDS: FentaNYL (PF) 1,000 MCG in 0.9 % Sodium Chloride 80 ML IVC SCH ×2 (09:00→19:00)
[2017-04-09] MEDS ORDERED: *HR* Etomidate 20 MG/10 ML AMPUL IVP ONE (09:29)
--- NOTE | 2017-04-09 09:59 | Pulmonology Progress Note ---
Date of Encounter: 04/09/17 Time of Encounter: 09:59 Assessment and Plan (1) Acute and chronic respiratory failure with hypoxia Current Visit: Yes Status: Acute Management was reviewed during multidisciplinary critical care rounds. Neuropsych: Mixed delirium complicated by chronic pain we are attempting to treat pain upfront with continuous infusion of narcotic continue Precedex and we will add a low dose of benzodiazepine in an effort to control symptoms more appropriately this appears to be the primary impediment to successful liberation from the ventilator. I have encouraged the family to interact with the patient at bedside continue to avoid sensory deprivation and restorationism of sleep-wake cycle Pulm: Acute hypoxic respiratory failure s/t to Lobar PNA suspected aspiration complicated by MSK deformity (kyphoscoliosis). Failed CPAP trial today as patient had increase in respiratory rate and blood pressure along with tachycardia. I suspect this is primarily related to agitation however he was complaining of shortness of breath during the event this may be a reflection of cardiogenic pulmonary edema as a result of volume resuscitation during sepsis which I will treat with loop diuretic. We will retrial spontaneous breathing tomorrow. 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 Chronic Afib. Cont NOAC. Restart low-dose beta zuleyka and loop diuretic for CHF FEN-GI:PPI prophylaxis given. Cont enternal nutrition today and Bowel. Regimen. Appreciate nutrition consultation. History of possible biliary dyskinesia with plan for cholecystectomy this is on hold at present general surgery is following the patient appreciate their evaluation. Renal: Serum creatinine stable. Urine output is appropriate continue to monitor electrolytes and replace per protocol patient high risk for kidney injury we will avoid nephrotoxins as able ID: Septic shock s/t to PNA appears to be growing strep pneumoniae de-escalate antimicrobials to ceftriaxone to complete 7 day course. Heme/Onc: Continue anticoagulation for atrial fibrillation (NOAC) mild thrombocytopenia which is stable H&H stable Endo: Glucose Monitored Integ/MSK: Skin Care per routine ICU Nursing Protocol to prevent ulcers. Lines: All lines examined without evidence of infection Dispo: Remain in ICU for ventilator management CODE: I had a 15 minute meeting in aggregate with the patient's daughter (Yazan) in my office with his primary ICU nurse explaining the difficulty in adjusting [employer] medications to control delirium and agitation with successful liberation from ventilator. With as of yet been unsuccessful and balancing these 2 needs but we are continuing to make every effort to do so. I gave her a chance to ask all questions that she had attended my best to answer them. (2) CAD in [place] artery Current Visit: Yes Status: Acute (3) Hypotensive episode Current Visit: Yes Status: Acute (4) PAF (paroxysmal atrial fibrillation) Current Visit: Yes Status: Acute (5) Biliary dyskinesia Current Visit: Yes Status: Chronic (6) Cardiomyopathy Current Visit: Yes Status: Chronic Qualifiers: Cardiomyopathy type: unspecified Qualified Code(s): I42.9 - Cardiomyopathy , unspecified Subjective Principal diagnosis: Hypotensive event Interval history: Over the last 24 hours patient has had significant agitation and increasing delirium. His required addition of propofol infusion to keep patient safe while in bed along with precedex and fentanyl infusions. He continues to have intermittent episodes of severe agitation and thrashing in bed and generally feeling uncomfortable. During these times he is able to be reoriented but he does not consistently answer questions for example asking him if he is in pain prompts a yes response 1 minute however the following minute his he will say no after no intervention has been done. He has been able to be weaned from vasopressor support. Objective PUL Vital signs: Last Vital Signs Temp 98.9 F 04/09/17 08:00 Pulse 69 04/09/17 09:00 Resp 23 04/09/17 09:18 BP 121/65 04/09/17 09:18 Pulse Ox 98 04/09/17 09:18 General appearance: appears uncomfortable Effort: mildly labored Auscultation: bilateral: rales Cardiovascular: regular rate and rhythm Gastrointestinal: normoactive bowel sounds, soft, non-tender non-focal exam Ventilator Settings Ventilator Settings: Ventilator Settings, Last 8 Hours Ventilator Mode VC+ Ventilator Mode VC+ Ventilator Mode VC+ Ventilator Mode VC+ Ventilator Mode VC+ Ventilator Mode VC+ Ventilator Tidal Volume 550 Setting Ventilator Tidal Volume 550 Setting Ventilator Tidal Volume 550 Setting Ventilator Tidal Volume 550 Setting Ventilator Tidal Volume 550 Setting Ventilator Tidal Volume 550 Setting Ventilator Respiratory Rate 14 Setting Ventilator Respiratory Rate 14 Setting Ventilator Respiratory Rate 14 Setting Ventilator Respiratory Rate 14 Setting Ventilator Respiratory Rate 14 Setting Ventilator Respiratory Rate 14 Setting Actual Respiratory Rate 23 Actual Respiratory Rate 22 Actual Respiratory Rate 15 Actual Respiratory Rate 16 Actual Respiratory Rate 30 Actual Respiratory Rate 14 Actual Respiratory Rate 14 Positive End Expiratory 5 Pressure Positive End Expiratory 5 Pressure Positive End Expiratory 5 Pressure Positive End Expiratory 5 Pressure Positive End Expiratory 5 Pressure Positive End Expiratory 5 Pressure Positive End Expiratory 5 Pressure Positive End Expiratory 5 Pressure Peak Inspiratory Airway 21 Pressure Peak Inspiratory Airway 14 Pressure Peak Inspiratory Airway 21 Pressure Peak Inspiratory Airway 18 Pressure Peak Inspiratory Airway 18 Pressure Peak Inspiratory Airway 19 Pressure Peak Inspiratory Airway 19 Pressure Results - Laboratory Findings CBC and BMP: 04/09/17 03:10 04/09/17 03:10 ABG ABG pH 7.44 pH Units (7.32-7.45) 04/09/17 05:12 ABG pCO2 43 mmHg (35-45) 04/09/17 05:12 ABG pO2 74 mmHg (85-104) L 04/09/17 05:12 ABG O2 Saturation 95 % (95-98) 04/09/17 05:12 PT/INR, D-dimer PT 16.0 Seconds (9.4-12.1) H 04/07/17 03:03 Abnormal lab findings: Abnormal lab results WBC 15.7 K/mcL (4.3-11.1) H 04/09/17 03:10 RBC 3.87 M/mcL (4.19-5.50) L 04/09/17 03:10 Hgb 11.3 g/dL (12.9-16.9) L 04/09/17 03:10 Hct 34.1 % (37.5-50.1) L 04/09/17 03:10 RDW 14.6 % (11.5-14.5) H 04/09/17 03:10 Plt Count 111 K/mcL (140-400) L 04/09/17 03:10 Immature Gran % 6.8 % (0-4) H 04/09/17 03:10 Band Neutrophils % 21.0 % (0-4) H 04/07/17 18:58 Metamyelocytes % 3.0 % (0) H 04/07/17 18:58 Neutrophils # 13.8 K/mcL (1.6-8.9) H 04/09/17 03:10 Lymphocytes # 0.3 K/mcL (0.6-4.6) L 04/09/17 03:10 Platelet Estimate Slight Decrease (Normal) L 04/09/17 03:10 Large Platelets Present (Not Present) A 04/08/17 04:05 PT 16.0 Seconds (9.4-12.1) H 04/07/17 03:03 ABG pO2 74 mmHg (85-104) L 04/09/17 05:12 ABG HCO3 29 mEq/L (21-27) H 04/09/17 05:12 ABG Total CO2 31 mEq/L (20-26) H 04/09/17 05:12 ABG Base Excess 5 mEq/L (-2 to 3) H 04/09/17 05:12 BUN/Creatinine Ratio 32 (6-26) H 04/09/17 03:10 Glucose 130 mg/dL (70-99) H 04/09/17 03:10 POC Glucose 135 (58-89) H 04/08/17 00:28 Phosphorus 2.2 mg/dL (2.3-4.7) L 04/09/17 03:10 Total Bilirubin 3.6 mg/dL (0.2-1.2) H 04/09/17 03:10 Direct Bilirubin 2.3 mg/dL (0.0-0.5) H 04/09/17 03:10 Indirect Bilirubin 1.3 mg/dL (0.0-1.2) H 04/09/17 03:10 Troponin I 0.05 ng/mL (0-0.03) H* 04/06/17 13:02 Serum Total Protein 5.4 g/dL (6.0-8.3) L 04/09/17 03:10 Albumin 1.9 g/dL (3.5-5.0) L 04/09/17 03:10 Albumin/Globulin Ratio 0.5 (1.1-2.2) L 04/09/17 03:10 - Microbiology Findings Microbiology Findings: Microbiology, Last 48 Hours 04/06/17 20:37 Sputum Culture - Final Sputum Streptococcus pneumoniae 04/06/17 17:50 Blood Culture - Preliminary Peripheral Venipuncture No growth. 04/06/17 17:50 Blood Culture - Preliminary Peripheral Venipuncture No growth. 04/06/17 17:23 Urine Culture - Final Urine,[place] No growth. - Clinical Findings Intake & Output: Intake & Output 04/09/17 04/09/17 04/09/17 00:59 07:59 15:59 Intake Total Output Total Balance Weight - VTE Documentation of Mechanical Device: Intermittent pneumatic compression device Consult Discharge Plan - Plan Referrals: Ellen Vora DO [Primary Care Provider] -
[2017-04-09] MEDS: Pantoprazole 40 MG VIAL IVP SCH (10:00)
[2017-04-09] MEDS: Sennosides/Docusate Sodium TABLET PO SCH ×2 (10:00→21:21)
[2017-04-09] MEDS: cefTRIAXone 2,000 MG in Water for inj. (sterile) 20 ML IVP SCH (10:00)
[2017-04-09] MEDS: Chlorhexidine Rinse 15 ML MOUTHWASH MM SCH ×2 (10:01→21:18)
[2017-04-09] MEDS: APIXABAN 5 MG TABLET PO SCH ×2 (10:01→21:21)
[2017-04-09] MEDS ORDERED: Furosemide 20 MG/2 ML VIAL IVP ONE (10:37)
[2017-04-09] MEDS: *HR* LORazepam 2 MG/ML VIAL IVP PRN (11:00)
--- NOTE | 2017-04-09 15:15 | General Surgery Progress Note ---
Date of Encounter: 04/09/17 Time of Encounter: 15:12 - Assessment and Plan (1) Acute respiratory failure with hypoxemia Current Visit: Yes Status: Acute management per CCM (2) Septic shock Current Visit: Yes Status: Acute still on pressor support, levo at 2 managment per CCM (3) Biliary dyskinesia Current Visit: Yes Status: Chronic patient with biliary dyskinesia surgery on hold currently due to sepsis due to strep pneumonia continue abx (4) Pneumonia Current Visit: Yes Status: Acute strep pneumonia, on abx vent management per CCM Qualifiers: Pneumonia type: due to unspecified organism Laterality: left Lung location: lower lobe of lung Qualified Code(s): J18.1 - Lobar pneumonia, unspecified organism Subjective Narrative: patient sedated but responsive on vent states isnt having abdominal pain Objective Vital Signs - Last 8 Hours Temp Pulse Resp BP Pulse Ox 04/09/17 14:00 70 14 120/66 100 04/09/17 13:00 70 16 120/66 97 04/09/17 12:00 70 18 83/51 97 04/09/17 11:31 29 179/78 98 04/09/17 11:00 70 28 93/50 96 04/09/17 10:00 70 28 81/51 97 04/09/17 09:18 23 121/65 98 04/09/17 09:00 69 22 138/70 98 04/09/17 08:00 98.9 F 71 15 84/46 97 04/09/17 07:28 15 133/60 97 Intake and Output 04/09/17 04/09/17 04/09/17 00:59 07:59 15:59 Intake Total Output Total Balance Intake: IV Fluids PRECEDEX Premix 400 mcg In 100 ml @ 0.2 MCG/KG/HR 3.98 mls/hr IVC .Q24H [facility] Rx#:[id number] FentaNYL (PF) 1,000 MCG In 0.9 29 / 29 % Sodium Chloride 80 ML @ 50 MCG/HR 5 mls/hr IVC CONT [facility] Rx #:[id number] Levophed 4 MG In Dextrose 5% 250 ML @ 0 MCG/MIN IVC CONT [facility] Rx#:[id number] Diprivan 1,000 mg In 100 ml @ 22 / 20 MCG/KG/MIN 9.732 mls/hr IVC .[id number] [facility] Rx#:[id number] Zosyn 3.375 GM In Dextrose 5% ( ADD-Zullinger) 50 ML @ 12.5 mls/ hr IVPB Q8H [facility] Rx#:[id number] Tube Feeding Output: Catheter Other: Weight Blood Glucose* Patient Weight 04/09/17 22:59 Weight 81.5 kg - General physical appearance well nourished, no distress - Eyes normal ocular movement - ENT normal mucosa, normocephalic - Neck Neck exam: trachea midline - Respiratory normal expansion, clear to auscultation - Cardiovascular Cardiovascular exam: Present: RRR - Abdomen Abdomen: Present: soft, non tender - Integumentary no rash, no growths - Psychiatric other (seems to answer questions appropriately) - Labs 04/09/17 03:10 04/09/17 03:10 Diabetes panel 04/09/17 Range/Units 03:10 Sodium 136 (136-145) mEq/L Potassium 3.8 (3.5-4.5) mEq/L Chloride 101 (98-109) mEq/L Carbon Dioxide 29 (19-29) mEq/L BUN 24 (8-26) mg/dL Creatinine 0.76 (0.72-1.25) mg/dL Glucose 130 H (70-99) mg/dL Calcium 9.4 (8.6-10.8) mg/dL AST 31 (5-34) Units/L ALT 30 (0-55) Units/L Alkaline Phosphatase 99 (38-126) Units/L Albumin 1.9 L (3.5-5.0) g/dL Calcium panel 04/09/17 Range/Units 03:10 Calcium 9.4 (8.6-10.8) mg/dL Phosphorus 2.2 L (2.3-4.7) mg/dL Albumin 1.9 L (3.5-5.0) g/dL Pituitary panel 04/09/17 Range/Units 03:10 Sodium 136 (136-145) mEq/L Potassium 3.8 (3.5-4.5) mEq/L Chloride 101 (98-109) mEq/L Carbon Dioxide 29 (19-29) mEq/L BUN 24 (8-26) mg/dL Creatinine 0.76 (0.72-1.25) mg/dL Glucose 130 H (70-99) mg/dL Calcium 9.4 (8.6-10.8) mg/dL Adrenal panel 04/09/17 Range/Units 03:10 Sodium 136 (136-145) mEq/L Potassium 3.8 (3.5-4.5) mEq/L Chloride 101 (98-109) mEq/L Carbon Dioxide 29 (19-29) mEq/L BUN 24 (8-26) mg/dL Creatinine 0.76 (0.72-1.25) mg/dL Glucose 130 H (70-99) mg/dL Calcium 9.4 (8.6-10.8) mg/dL Total Bilirubin 3.6 H (0.2-1.2) mg/dL AST 31 (5-34) Units/L ALT 30 (0-55) Units/L Alkaline Phosphatase 99 (38-126) Units/L Albumin 1.9 L (3.5-5.0) g/dL - VTE Documentation of Mechanical Device: Intermittent pneumatic compression device Consult Discharge Plan - Plan Referrals: Ellen Vora DO [Primary Care Provider] -
[2017-04-09] MEDS: Dexmedetomidine HCl 400 MCG/100 ML MLS IVC SCH (20:00)
[2017-04-10] MEDS: Ipratropium/Albuterol Neb 3 ML IH SCH ×7 (00:25→23:55)
[2017-04-10 03:14] LABS: Basophils % 0.1 %; Eosinophils % 0.1 %; Hematocrit 34.1 % (37.5-50.1); Hemoglobin 11.2 g/dL (12.9-16.9); Immature Granulocytes % 0.5 % (0-4); Immature Platelets 4.9 % (1.1-6.1); Lymphocytes # 0.5 K/mcL (0.6-4.6); Lymphocytes % 4.6 %; Mean Corpuscular HGB Conc 32.8 g/dL (31.6-35.5); Mean Corpuscular Hemoglobin 28.9 pg (28.0-33.3); Mean Corpuscular Volume 87.9 fL (83.0-100.0); Mean Platelet Volume 9.9 fL (9.4-12.4); Monocytes # 0.3 K/mcL (0.0-1.3); Monocytes % 3.1 %; Neutrophils # 9.9 K/mcL (1.6-8.9); Platelet Count 116 K/mcL (140-400); Red Blood Count 3.88 M/mcL (4.19-5.50); Red Cell Distribution Width 14.7 % (11.5-14.5); Segmented Neutrophils % 91.6 %
[2017-04-10 03:25] LABS: Ionized Calcium 1.26 mmol/L (1.15-1.35)
[2017-04-10 03:36] LABS: Alanine Aminotransferase 66 Units/L (0-55); Albumin/Globulin Ratio 0.6 (1.1-2.2); Alkaline Phosphatase 121 Units/L (38-126); Aspartate Amino Transferase 57 Units/L (5-34); BUN/Creatinine Ratio 46 (6-26); Bilirubin,Direct 1.5 mg/dL (0.0-0.5); Bilirubin,Indirect 0.9 mg/dL (0.0-1.2); Blood Urea Nitrogen 34 mg/dL (8-26); Calcium 9.2 mg/dL (8.6-10.8); Carbon Dioxide 30 mEq/L (19-29); Chloride 101 mEq/L (98-109); Globulin 3.3 g/dL (2.4-3.5); Glucose 91 mg/dL (70-99); Magnesium 1.8 mg/dL (1.6-2.6); Osmolality,Calculated 293 (280-300); Phosphorous 1.4 mg/dL (2.3-4.7); Potassium 3.5 mEq/L (3.5-4.5); Sodium 138 mEq/L (136-145); Total Protein 5.3 g/dL (6.0-8.3); eGFR For African Americans > 60 (> 60); eGFR For Non-African Americans > 60 (> 60)
[2017-04-10 03:37] LABS: Bilirubin,Total 2.4 mg/dL (0.2-1.2)
[2017-04-10] MEDS: Dexmedetomidine HCl 400 MCG/100 ML MLS IVC SCH ×3 (04:00→18:52)
[2017-04-10] MEDS: Lacri-Lube 3.5 GM TUBE BOTH EYES SCH ×5 (04:19→19:46)
[2017-04-10 04:30] LABS: ABG Base Excess 6 mEq/L (-2 to 3); ABG HCO3 31 mEq/L (21-27); ABG Oxygen Saturation 92 % (95-98); ABG PCO2 46 mmHg (35-45); ABG PH 7.45 pH Units (7.32-7.45); ABG PO2 63 mmHg (85-104); ABG TCO2 33 mEq/L (20-26); Blood Gas Modality ASSIST CONTROL; Blood Gas PEEP 5 cm H2O; Blood Gas Respiration Rate 12; Blood Gas VT 550 cc
[2017-04-10] MEDS: *HR* LORazepam 2 MG/ML VIAL IVP PRN (06:40)
[2017-04-10] MEDS ORDERED: Furosemide 40 MG/4 ML VIAL IVP ONE (07:09)
[2017-04-10] MEDS: APIXABAN 5 MG TABLET PO SCH ×2 (07:34→19:47)
[2017-04-10] MEDS: Sennosides/Docusate Sodium TABLET PO SCH ×2 (07:34→19:48)
[2017-04-10] MEDS: cefTRIAXone 2,000 MG in Water for inj. (sterile) 20 ML IVP SCH (07:35)
[2017-04-10] MEDS: Pantoprazole 40 MG VIAL IVP SCH (07:35)
[2017-04-10] MEDS: Chlorhexidine Rinse 15 ML MOUTHWASH MM SCH ×2 (07:35→19:48)
--- NOTE | 2017-04-10 09:28 | Pulmonology Progress Note ---
Date of Encounter: 04/10/17 Time of Encounter: 09:28 Assessment and Plan (1) Acute and chronic respiratory failure with hypoxia Current Visit: Yes Status: Acute Management was reviewed during multidisciplinary critical care rounds. Neuropsych: Mixed delirium complicated by chronic pain we are attempting to treat pain can add low dose of atypical antipsychotic for agitation. Cont PRecedex. Continue to avoid sensory deprivation and attempt to reestablish sleep-wake cycle we will add melatonin tonight Pulm: Acute hypoxic respiratory failure s/t to Lobar PNA s complicated by MSK deformity (kyphoscoliosis). liberated to PAP today. Tenuous respiratory status complicated by agitation and underlying heart disease. Re check ABG Cards: Chronic HFrEF s/t CAD cardiomyophathy s/p ICD placemnt and PPI for SSS presenting with with NSTEMI s/t to Demand Ischemia. Chronic Afib. Cont NOAC. Restart low-dose beta zuleyka. Cont loop diuretic for goal negative volume status. FEN-GI:NPO for now while on NIPPV. Ok to advance to taking PO (meds and sips) after bedside swallow once more stable. History of possible biliary dyskinesia with plan for cholecystectomy this is on hold at present general surgery is following the patient appreciate their evaluation. Renal: Serum creatinine stable. Urine output is appropriate continue to monitor electrolytes and replace per protocol patient high risk for kidney injury we will avoid nephrotoxins as able ID: Septic shock s/t to PNA appears to be growing strep pneumoniae cont ceftriaxone to complete 7 day course. Heme/Onc: Continue anticoagulation for atrial fibrillation (NOAC) mild thrombocytopenia which is stable H&H stable Endo: Glucose Monitored Integ/MSK: Skin Care per routine ICU Nursing Protocol to prevent ulcers. Lines: All lines examined without evidence of infection Dispo: Remain in ICU as patient has a high risk of deterioration requiring reintubation. CODE: I had a 15 minute meeting in aggregate with the patient's daughter (Yazan) in my office and at bedside she is understandbly emotional at why her father is having such confusion which I explained was likely "ICU Delirium" I reassured her and answered all questions as I was able. . (2) CAD in [place] artery Current Visit: Yes Status: Acute (3) Hypotensive episode Current Visit: Yes Status: Acute (4) PAF (paroxysmal atrial fibrillation) Current Visit: Yes Status: Acute (5) Biliary dyskinesia Current Visit: Yes Status: Chronic (6) Cardiomyopathy Current Visit: Yes Status: Chronic Qualifiers: Cardiomyopathy type: unspecified Qualified Code(s): I42.9 - Cardiomyopathy , unspecified Subjective Principal diagnosis: Hypotensive event Interval history: Remains delirious with significant agitation. He was able to be liberated from the ventilator today and subsequent to extubation he has been doing relatively well on noninvasive ventilation. He said periodic episodes of hypoxia which appear more related to agitation than anything else. Objective PUL Vital signs: Last Vital Signs Temp 97.1 F L 04/10/17 08:02 Pulse 77 04/10/17 08:00 Resp 23 04/10/17 08:29 BP 169/99 04/10/17 08:00 Pulse Ox 90 04/10/17 08:33 General appearance: appears uncomfortable, other (He is able to be redirected but he cannot consistently follow commands or interact with my questions) Effort: mildly labored Auscultation: left: diminished breath sounds, rhonchi, right: clear Cardiovascular: regular rate and rhythm Gastrointestinal: soft, non-tender pupils equal and round, other (moves all ext's spontaneoulsy ) anxious Ventilator Settings Ventilator Settings: Ventilator Settings, Last 8 Hours Ventilator Mode CPAP Ventilator Mode CPAP Ventilator Mode VC+ Ventilator Mode VC+ Ventilator Mode VC+ Ventilator Mode VC+ Ventilator Mode VC+ Ventilator Mode VC+ Ventilator Tidal Volume 550 Setting Ventilator Tidal Volume 550 Setting Ventilator Tidal Volume 550 Setting Ventilator Tidal Volume 500 Setting Ventilator Tidal Volume 500 Setting Ventilator Tidal Volume 500 Setting Ventilator Tidal Volume 500 Setting Ventilator Respiratory Rate 12 Setting Ventilator Respiratory Rate 12 Setting Ventilator Respiratory Rate 14 Setting Ventilator Respiratory Rate 14 Setting Ventilator Respiratory Rate 14 Setting Ventilator Respiratory Rate 14 Setting Actual Respiratory Rate 16 Actual Respiratory Rate 31 Actual Respiratory Rate 17 Actual Respiratory Rate 15 Actual Respiratory Rate 20 Actual Respiratory Rate 17 Positive End Expiratory 5 Pressure Positive End Expiratory 5 Pressure Positive End Expiratory 5 Pressure Positive End Expiratory 5 Pressure Positive End Expiratory 5 Pressure Positive End Expiratory 5 Pressure Positive End Expiratory 5 Pressure Peak Inspiratory Airway 13 Pressure Peak Inspiratory Airway 16 Pressure Peak Inspiratory Airway 22 Pressure Peak Inspiratory Airway 24 Pressure Peak Inspiratory Airway 22 Pressure Peak Inspiratory Airway 22 Pressure Results - Laboratory Findings CBC and BMP: 04/10/17 03:05 04/10/17 03:05 ABG ABG pH 7.45 pH Units (7.32-7.45) 04/10/17 04:24 ABG pCO2 46 mmHg (35-45) H 04/10/17 04:24 ABG pO2 63 mmHg (85-104) L 04/10/17 04:24 ABG O2 Saturation 92 % (95-98) L 04/10/17 04:24 PT/INR, D-dimer PT 16.0 Seconds (9.4-12.1) H 04/07/17 03:03 Abnormal lab findings: Abnormal lab results RBC 3.88 M/mcL (4.19-5.50) L 04/10/17 03:05 Hgb 11.2 g/dL (12.9-16.9) L 04/10/17 03:05 Hct 34.1 % (37.5-50.1) L 04/10/17 03:05 RDW 14.7 % (11.5-14.5) H 04/10/17 03:05 Plt Count 116 K/mcL (140-400) L 04/10/17 03:05 Band Neutrophils % 21.0 % (0-4) H 04/07/17 18:58 Metamyelocytes % 3.0 % (0) H 04/07/17 18:58 Neutrophils # 9.9 K/mcL (1.6-8.9) H 04/10/17 03:05 Lymphocytes # 0.5 K/mcL (0.6-4.6) L 04/10/17 03:05 Platelet Estimate Slight Decrease (Normal) L 04/09/17 03:10 Large Platelets Present (Not Present) A 04/08/17 04:05 PT 16.0 Seconds (9.4-12.1) H 04/07/17 03:03 ABG pCO2 46 mmHg (35-45) H 04/10/17 04:24 ABG pO2 63 mmHg (85-104) L 04/10/17 04:24 ABG HCO3 31 mEq/L (21-27) H 04/10/17 04:24 ABG Total CO2 33 mEq/L (20-26) H 04/10/17 04:24 ABG O2 Saturation 92 % (95-98) L 04/10/17 04:24 ABG Base Excess 6 mEq/L (-2 to 3) H 04/10/17 04:24 Carbon Dioxide 30 mEq/L (19-29) H 04/10/17 03:05 BUN 34 mg/dL (8-26) H D 04/10/17 03:05 BUN/Creatinine Ratio 46 (6-26) H 04/10/17 03:05 POC Glucose 108 (58-89) H 04/09/17 23:22 Phosphorus 1.4 mg/dL (2.3-4.7) L 04/10/17 03:05 Total Bilirubin 2.4 mg/dL (0.2-1.2) H 04/10/17 03:05 Direct Bilirubin 1.5 mg/dL (0.0-0.5) H 04/10/17 03:05 AST 57 Units/L (5-34) H 04/10/17 03:05 ALT 66 Units/L (0-55) H 04/10/17 03:05 Troponin I 0.05 ng/mL (0-0.03) H* 04/06/17 13:02 Serum Total Protein 5.3 g/dL (6.0-8.3) L 04/10/17 03:05 Albumin 2.0 g/dL (3.5-5.0) L 04/10/17 03:05 Albumin/Globulin Ratio 0.6 (1.1-2.2) L 04/10/17 03:05 - Microbiology Findings Microbiology Findings: Microbiology, Last 48 Hours 04/06/17 20:37 Sputum Culture - Final Sputum Streptococcus pneumoniae 04/06/17 17:50 Blood Culture - Preliminary Peripheral Venipuncture No growth. 04/06/17 17:50 Blood Culture - Preliminary Peripheral Venipuncture No growth. - Clinical Findings Intake & Output: Intake & Output 04/09/17 04/10/17 04/10/17 23:59 07:59 15:59 Intake Total 1282 / 1282 464 / 464 Output Total 1250 / 1250 200 / 200 50 / 50 Balance 32 / 32 264 / 264 -50 / -50 Weight 79.3 kg - VTE Documentation of Mechanical Device: Intermittent pneumatic compression device Consult Discharge Plan - Plan Referrals: Ellen Vora DO [Primary Care Provider] -
--- NOTE | 2017-04-10 09:42 | General Surgery Progress Note ---
Date of Encounter: 04/10/17 Time of Encounter: 08:45 - Assessment and Plan (1) Biliary dyskinesia Current Visit: Yes Status: Chronic patient with biliary dyskinesia surgery on hold currently due to sepsis due to strep pneumonia; pt was extubated this am, currently on bipap and appears in mild-moderate distress. Dtr at bedside. continue abx (2) Acute and chronic respiratory failure with hypoxia Current Visit: Yes Status: Acute Management per primary medicine (3) Pneumonia Current Visit: Yes Status: Acute Management per primary medicine Qualifiers: Qualified Code(s): J18.1 - Lobar pneumonia, unspecified organism Subjective Narrative: Unable to obtain subjective information as pt was just extubated, on bi-pap and appears in moderated distress. Daughter is at bedside. Objective Vital Signs - Last 8 Hours Temp Pulse Resp BP Pulse Ox 04/10/17 08:33 90 04/10/17 08:29 23 92 04/10/17 08:27 19 90 04/10/17 08:02 97.1 F L 04/10/17 08:00 77 20 169/99 96 04/10/17 07:42 16 99 04/10/17 06:00 69 29 154/98 88 04/10/17 05:00 73 20 88/64 91 04/10/17 04:00 97.4 F L 71 17 98/78 93 04/10/17 03:33 15 102/74 100 04/10/17 03:00 70 20 99/73 94 04/10/17 02:00 71 17 116/90 93 Intake and Output 04/09/17 04/10/17 04/10/17 23:59 07:59 15:59 Intake Total 1282 / 1282 464 / 464 Output Total 1250 / 1250 200 / 200 50 / 50 Balance 32 / 32 264 / 264 -50 / -50 Intake: IV Fluids 223 / 223 163 / 163 PRECEDEX Premix 400 mcg In 100 66 / 66 100 / 100 ml @ 0.2 MCG/KG/HR 3.98 mls/hr IVC .Q24H [facility] Rx#:[id number] FentaNYL (PF) 1,000 MCG In 0.9 145 / 145 38 / 38 % Sodium Chloride 80 ML @ 50 MCG/HR 5 mls/hr IVC CONT [facility] Rx #:[id number] Levophed 4 MG In Dextrose 5% 0 / 0 250 ML @ 0 MCG/MIN IVC CONT [facility] Rx#:[id number] Diprivan 1,000 mg In 100 ml @ 12 / 12 25 / 25 20 MCG/KG/MIN 9.732 mls/hr IVC .[id number] [facility] Rx#:[id number] Tube Feeding 1059 / 1059 301 / 301 Output: Catheter 1250 / 1250 200 / 200 50 / 50 Other: Weight 79.3 kg Blood Glucose* 108 - General physical appearance moderate distress - Eyes other (KASHIF) - ENT atraumatic, normocephalic - Neck Neck exam: trachea midline, no venous distension - Respiratory other (Decreased, course, moderate distress, on bi-pap) - Cardiovascular Cardiovascular exam: Present: tachycardia - Abdomen Abdomen: Present: bowel sounds present, soft, non tender - Integumentary no growths - Neurologic other (see above) - Musculoskeletal other (See above) - Psychiatric other (See above) - Labs 04/10/17 03:05 04/10/17 03:05 Diabetes panel 04/10/17 Range/Units 03:05 Sodium 138 (136-145) mEq/L Potassium 3.5 (3.5-4.5) mEq/L Chloride 101 (98-109) mEq/L Carbon Dioxide 30 H (19-29) mEq/L BUN 34 H D (8-26) mg/dL Creatinine 0.74 (0.72-1.25) mg/dL Glucose 91 (70-99) mg/dL Calcium 9.2 (8.6-10.8) mg/dL AST 57 H (5-34) Units/L ALT 66 H (0-55) Units/L Alkaline Phosphatase 121 (38-126) Units/L Albumin 2.0 L (3.5-5.0) g/dL Calcium panel 04/10/17 Range/Units 03:05 Calcium 9.2 (8.6-10.8) mg/dL Phosphorus 1.4 L (2.3-4.7) mg/dL Albumin 2.0 L (3.5-5.0) g/dL Pituitary panel 04/10/17 Range/Units 03:05 Sodium 138 (136-145) mEq/L Potassium 3.5 (3.5-4.5) mEq/L Chloride 101 (98-109) mEq/L Carbon Dioxide 30 H (19-29) mEq/L BUN 34 H D (8-26) mg/dL Creatinine 0.74 (0.72-1.25) mg/dL Glucose 91 (70-99) mg/dL Calcium 9.2 (8.6-10.8) mg/dL Adrenal panel 04/10/17 Range/Units 03:05 Sodium 138 (136-145) mEq/L Potassium 3.5 (3.5-4.5) mEq/L Chloride 101 (98-109) mEq/L Carbon Dioxide 30 H (19-29) mEq/L BUN 34 H D (8-26) mg/dL Creatinine 0.74 (0.72-1.25) mg/dL Glucose 91 (70-99) mg/dL Calcium 9.2 (8.6-10.8) mg/dL Total Bilirubin 2.4 H (0.2-1.2) mg/dL AST 57 H (5-34) Units/L ALT 66 H (0-55) Units/L Alkaline Phosphatase 121 (38-126) Units/L Albumin 2.0 L (3.5-5.0) g/dL - VTE Documentation of Mechanical Device: Intermittent pneumatic compression device Consult Discharge Plan - Plan Referrals: Ellen Vora DO [Primary Care Provider] -
[2017-04-10 09:53] LABS: ABG Base Excess 4 mEq/L (-2 to 3); ABG HCO3 34 mEq/L (21-27); ABG Oxygen Saturation 96 % (95-98); ABG PCO2 75 mmHg (35-45); ABG PH 7.27 pH Units (7.32-7.45); ABG PO2 98 mmHg (85-104); ABG TCO2 36 mEq/L (20-26)
[2017-04-10] MEDS ORDERED: Melatonin 3 MG TABLET PO PRN (09:55)
[2017-04-10] MEDS ORDERED: *HR* Morphine 2 MG/ML SYRINGE IVP PRN (11:00)
[2017-04-10] MEDS ORDERED: Lidocaine -MPF 1% 2 ML VIAL INFILT ONE (13:12)
[2017-04-10] MEDS ORDERED: Sodium Phosphate 30 MMOL in D5% in Water 100 ML IVPB ONE (13:14)
[2017-04-10] MEDS ORDERED: D10% in Water 500 ML IVC PRN (13:24)
[2017-04-10 13:56] LABS: ABG Base Excess 5 mEq/L (-2 to 3); ABG HCO3 33 mEq/L (21-27); ABG Oxygen Saturation 92 % (95-98); ABG PCO2 58 mmHg (35-45); ABG PH 7.35 pH Units (7.32-7.45); ABG PO2 68 mmHg (85-104); ABG TCO2 34 mEq/L (20-26)
[2017-04-10] MEDS: *HR* Morphine 2 MG/ML SYRINGE IVP SCH ×3 (15:00→19:50)
[2017-04-10] MEDS ORDERED: Clinimix E 5%-15% SOLUTION 2,000 ML with MVI, adult with vitamin K 10 ML IVC SCH (17:00)
--- NOTE | 2017-04-10 21:51 | Event Note ---
Date of Encounter: 04/10/17 Time of Encounter: 21:51 Called by RN about an hour ago noting that he had unequal pupils. I ordered STAT head CT given he was on Eliquis. Upon arrival back to ICU, he had desaturated, and I was called to see him immediately. I came to assess him, and he responded to Bipap and returned to stable oxygenation and ventilation with BiPap. His pupils are unequal (~ 5-6 mm on right without response; ~3 mm on left with response). Initially, he would not respond but to painful stimulation. Now, roughly 20 minutes later, he responds appropriately to verbal stimuli and moves all four extremities. I called and spoke with radiology and reviewed CT with them -- negative for blood, edema, or herniation. I called and spoke with Dr. Balbuena and updated him. We discussed stopping Eliquis for now, and he agrees. Of note, patient did not receive it tonight since he was extubated today. I will stop Eliquis as advised and allow ICU team to address it further tomorrow.
[2017-04-11] MEDS: *HR* Morphine 2 MG/ML SYRINGE IVP SCH ×7 (00:01→23:36)
[2017-04-11] MEDS: Lacri-Lube 3.5 GM TUBE BOTH EYES SCH ×6 (00:34→20:36)
[2017-04-11] MEDS: Dexmedetomidine HCl 400 MCG/100 ML MLS IVC SCH ×2 (01:12→08:02)
[2017-04-11] MEDS: Ipratropium/Albuterol Neb 3 ML IH SCH ×6 (03:28→23:27)
[2017-04-11] MEDS: Norepinephrine 4 MG in D5% in Water 250 ML IVC SCH ×3 (05:45→22:38)
[2017-04-11 07:02] LABS: Basophils % 0.1 %; Eosinophils % 0.1 %; Hematocrit 40.4 % (37.5-50.1); Hemoglobin 12.7 g/dL (12.9-16.9); Immature Granulocytes % 0.8 % (0-4); Lymphocytes # 0.6 K/mcL (0.6-4.6); Lymphocytes % 7.2 %; Mean Corpuscular HGB Conc 31.4 g/dL (31.6-35.5); Mean Corpuscular Hemoglobin 28.6 pg (28.0-33.3); Mean Platelet Volume 10.4 fL (9.4-12.4); Monocytes # 0.4 K/mcL (0.0-1.3); Monocytes % 4.8 %; Neutrophils # 7.2 K/mcL (1.6-8.9); Platelet Count 122 K/mcL (140-400); Red Blood Count 4.44 M/mcL (4.19-5.50); Red Cell Distribution Width 14.8 % (11.5-14.5)
[2017-04-11 07:19] LABS: Alanine Aminotransferase 84 Units/L (0-55); Albumin 2.2 g/dL (3.5-5.0); Albumin/Globulin Ratio 0.6 (1.1-2.2); Alkaline Phosphatase 149 Units/L (38-126); Aspartate Amino Transferase 47 Units/L (5-34); BUN/Creatinine Ratio 43 (6-26); Bilirubin,Direct 1.4 mg/dL (0.0-0.5); Bilirubin,Indirect 0.7 mg/dL (0.0-1.2); Bilirubin,Total 2.1 mg/dL (0.2-1.2); Blood Urea Nitrogen 29 mg/dL (8-26); Calcium 9.3 mg/dL (8.6-10.8); Carbon Dioxide 34 mEq/L (19-29); Chloride 99 mEq/L (98-109); Globulin 3.6 g/dL (2.4-3.5); Glucose 137 mg/dL (70-99); Magnesium 1.7 mg/dL (1.6-2.6); Osmolality,Calculated 302 (280-300); Potassium 3.7 mEq/L (3.5-4.5); Sodium 142 mEq/L (136-145); Total Protein 5.8 g/dL (6.0-8.3); Triglycerides 72 mg/dL (< 150); eGFR For African Americans > 60 (> 60); eGFR For Non-African Americans > 60 (> 60)
[2017-04-11 07:33] LABS: Phosphorous 4.1 mg/dL (2.3-4.7)
[2017-04-11 07:52] LABS: Ionized Calcium 1.19 mmol/L (1.15-1.35)
[2017-04-11 08:25] LABS: ABG Base Excess 3 mEq/L (-2 to 3); ABG HCO3 37 mEq/L (21-27); ABG Oxygen Saturation 92 % (95-98); ABG PCO2 113 mmHg (35-45); ABG PH 7.12 pH Units (7.32-7.45); ABG PO2 91 mmHg (85-104); ABG TCO2 40 mEq/L (20-26)
[2017-04-11] MEDS ORDERED: *HR* FentaNYL (PF) 100 MCG/2 ML VIAL ONE (08:30)
[2017-04-11] MEDS ORDERED: *HR* FentaNYL (PF) 100 MCG/2 ML VIAL IVP ONE (08:32)
[2017-04-11] MEDS ORDERED: 0.9 % Sodium Chloride 500 ML ONE (08:34)
--- NOTE | 2017-04-11 08:36 | Procedure Note ---
Date of procedure: 04/11/17 Pre-op diagnosis: Respiratory Failure Post-op diagnosis: same Procedure: Intubation Surgeon: Shiva Balbuena Disposition: no change Procedures: Internal Med - Intubation Time out performed: No (Emergent) Sedative: Etomidate Amount Given: 20 Laryngoscope: fiber optic video scope ET tube size: 7.5 Tube secured depth (cm): 23 Tube secured location: lips Tube placement confirmation: visualized tube passing through cords, equal breath sounds bilaterally, no breath sounds over epigastrium, confirmation by capnometry Patient tolerated procedure: well Intubation complications: none
--- NOTE | 2017-04-11 08:46 | Procedure Note ---
<Wilfrid Stringer - Last Filed: 04/11/17 08:48> Date of procedure: 04/11/17 Pre-op diagnosis: Hypotension Post-op diagnosis: same Procedure: Central venous catheter placement: The procedure was considered emergent. The left femoral area was surveyed using ultrasound and deemed to be a suitable target. The patient was cleaned and draped in the usual sterile fashion. Under ultrasound guidance the introducer needle was advanced in the left femoral vein. Dark red, nonpulsatile blood flow was returned. A guidewire was advanced to the introducer needle into the left femoral vein without resistance. The introducer needle was removed, matt in the skin was made, and the dilator was advanced over the guidewire and the skin and soft tissues were dilated. A 20 cm triple lumen catheter was advanced over the guidewire and into the left femoral vein. The guidewire was removed intact. All 3 ports were tested and shown to draw blood and flushed easily. The catheter was sutured in place. Biopatch and sterile dressing were applied. The patient tolerated the procedure well, and there are no immediate complications. Anesthesia: GETA Surgeon: Wilfrid Stringer Estimated blood loss (cc): 10 IV fluids (cc): 20 Condition: critical Disposition: ICU <Shiva Balbuena - Last Filed: 04/11/17 16:40> - Attending Attestation I examined this patient and my medical decision-making was reviewed with the Resident Physician. I agree with the documented procedure note as available for this central venous catheter placement I was available and present for the entire procedure
--- NOTE | 2017-04-11 08:59 | Pulmonology Progress Note ---
<Wilfrid Stringer - Last Filed: 04/11/17 08:57> Date of Encounter: 04/11/17 Time of Encounter: 08:57 Assessment and Plan (1) Acute and chronic respiratory failure with hypoxia Current Visit: Yes Status: Acute Likely secondary to pneumonia. Patient had an episode of desaturation overnight and again this morning. Given the patient's persistent hypoxia and lack of response the patient was intubated. He is currently on mechanical ventilation. Oxygen saturation is improved with mechanical ventilation, recheck ABG. (2) Pneumonia Current Visit: Yes Status: Acute Secondary to Streptococcus pneumoniae. Patient had decompensation of his respiratory status as discussed above and is now intubated again. Sensitivities show that his strep pneumo is sensitive to Rocephin. Continue Rocephin. Qualifiers: Pneumonia type: due to unspecified organism Laterality: left Lung location: lower lobe of lung Qualified Code(s): J18.1 - Lobar pneumonia, unspecified organism (3) Septic shock Current Visit: Yes Status: Acute Secondary to strep pneumoniae pneumonia as discussed above. Patient is required norepinephrine for vasopressor support. Continue to titrate norepinephrine for map of 65. We will recheck lactate, redraw blood cultures. (4) CAD in [place] artery Current Visit: Yes Status: Acute No evidence of ACS. Troponins negative, no ischemic changes. Cardiology is following. (5) Cardiomyopathy Current Visit: Yes Status: Chronic Echo shows normal EF with mild diastolic dysfunction. No evidence of acute cardiomyopathy. Continue to monitor. Qualifiers: Cardiomyopathy type: unspecified Qualified Code(s): I42.9 - Cardiomyopathy , unspecified (6) Hypotensive episode Current Visit: Yes Status: Acute Patient became hypotensive during induction of anesthesia for his is elective procedure on Monday. Possibly related to medications however underlying infection could have contributed as well. Patient is currently hypotensive during his septic shock. He did not become acutely hypotensive during sedation for endotracheal intubation today. (7) Biliary dyskinesia Current Visit: Yes Status: Chronic Patient was supposed to undergo elective cholecystectomy on Monday however this was aborted due to hypotensive episode during induction of anesthesia as discussed above. We will continue to delay surgery until the patient's clinical status has improved. Surgery is following. (8) PAF (paroxysmal atrial fibrillation) Current Visit: Yes Status: Acute Patient is currently in paced rhythm. He is on chronic anticoagulation with Eliquis at home. Continue to hold given the patient's critical condition. Rate is controlled. Subjective Principal diagnosis: Hypotensive event Interval history: Patient seen and examined at bedside. Patient is currently on BiPAP and is nonresponsive. Overnight he was found have unequal pupils and had a head CT performed that was unremarkable. At this time patient is unresponsive to painful or verbal stimuli. Objective PUL Vital signs: Last Vital Signs Temp 97.5 F L 04/11/17 07:30 Pulse 78 04/11/17 06:00 Resp 28 04/11/17 06:00 BP 154/99 04/11/17 06:00 Pulse Ox 100 04/11/17 06:00 General appearance: other (Unresponsive to painful stimuli) Effort: very labored Auscultation: bilateral: rhonchi Cardiovascular: irregular rhythm Gastrointestinal: hypoactive bowel sounds, soft, non-tender, non-distended Extremities: no cyanosis, no clubbing, edema (1+ bilaterally) unable to assess due to mental status Results - Laboratory Findings CBC and BMP: 04/11/17 06:33 04/11/17 06:33 ABG ABG pH 7.12 pH Units (7.32-7.45) L* 04/11/17 08:07 ABG pCO2 113 mmHg (35-45) H* 04/11/17 08:07 ABG pO2 91 mmHg (85-104) 04/11/17 08:07 ABG O2 Saturation 92 % (95-98) L 04/11/17 08:07 PT/INR, D-dimer PT 16.0 Seconds (9.4-12.1) H 04/07/17 03:03 Abnormal lab findings: Abnormal lab results Hgb 12.7 g/dL (12.9-16.9) L D 04/11/17 06:33 MCHC 31.4 g/dL (31.6-35.5) L 04/11/17 06:33 RDW 14.8 % (11.5-14.5) H 04/11/17 06:33 Plt Count 122 K/mcL (140-400) L 04/11/17 06:33 Band Neutrophils % 21.0 % (0-4) H 04/07/17 18:58 Metamyelocytes % 3.0 % (0) H 04/07/17 18:58 Platelet Estimate Slight Decrease (Normal) L 04/09/17 03:10 Large Platelets Present (Not Present) A 04/08/17 04:05 PT 16.0 Seconds (9.4-12.1) H 04/07/17 03:03 ABG pH 7.12 pH Units (7.32-7.45) L* 04/11/17 08:07 ABG pCO2 113 mmHg (35-45) H* 04/11/17 08:07 ABG HCO3 37 mEq/L (21-27) H 04/11/17 08:07 ABG Total CO2 40 mEq/L (20-26) H 04/11/17 08:07 ABG O2 Saturation 92 % (95-98) L 04/11/17 08:07 Carbon Dioxide 34 mEq/L (19-29) H 04/11/17 06:33 BUN 29 mg/dL (8-26) H 04/11/17 06:33 Creatinine 0.67 mg/dL (0.72-1.25) L 04/11/17 06:33 BUN/Creatinine Ratio 43 (6-26) H 04/11/17 06:33 Glucose 137 mg/dL (70-99) H 04/11/17 06:33 POC Glucose 108 (58-89) H 04/09/17 23:22 Calculated Osmolality 302 (280-300) H 04/11/17 06:33 Total Bilirubin 2.1 mg/dL (0.2-1.2) H 04/11/17 06:33 Direct Bilirubin 1.4 mg/dL (0.0-0.5) H 04/11/17 06:33 AST 47 Units/L (5-34) H 04/11/17 06:33 ALT 84 Units/L (0-55) H 04/11/17 06:33 Alkaline Phosphatase 149 Units/L (38-126) H 04/11/17 06:33 Troponin I 0.05 ng/mL (0-0.03) H* 04/06/17 13:02 Serum Total Protein 5.8 g/dL (6.0-8.3) L 04/11/17 06:33 Albumin 2.2 g/dL (3.5-5.0) L 04/11/17 06:33 Globulin 3.6 g/dL (2.4-3.5) H 04/11/17 06:33 Albumin/Globulin Ratio 0.6 (1.1-2.2) L 04/11/17 06:33 - Microbiology Findings Microbiology Findings: Microbiology, Last 48 Hours 04/06/17 20:37 Sputum Culture - Final Sputum Streptococcus pneumoniae - Clinical Findings Intake & Output: Intake & Output 04/10/17 04/11/17 04/11/17 23:59 07:59 15:59 Intake Total 120 / 120 378.6 / 378.6 Output Total 1100 / 1100 575 / 575 Balance -980 / -980 -196.4 / -196.4 Weight 73.981 kg - VTE Documentation of Mechanical Device: Intermittent pneumatic compression device Consult Discharge Plan - Plan Referrals: Ellen Vora, [Primary Care Provider] - <Shiva Balbuena - Last Filed: 04/11/17 12:21> Date of Encounter: 04/11/17 Assessment and Plan (1) Acute and chronic respiratory failure with hypoxia Current Visit: Yes Status: Acute (2) CAD in [place] artery Current Visit: Yes Status: Acute (3) Hypotensive episode Current Visit: Yes Status: Acute (4) PAF (paroxysmal atrial fibrillation) Current Visit: Yes Status: Acute (5) Biliary dyskinesia Current Visit: Yes Status: Chronic (6) Cardiomyopathy Current Visit: Yes Status: Chronic Qualifiers: Cardiomyopathy type: unspecified Qualified Code(s): I42.9 - Cardiomyopathy , unspecified Objective PUL Vital signs: Last Vital Signs Temp 97.5 F L 04/11/17 07:30 Pulse 74 04/11/17 11:31 Resp 18 04/11/17 11:22 BP 91/59 04/11/17 11:00 Pulse Ox 100 04/11/17 11:22 Ventilator Settings Ventilator Settings: Ventilator Settings, Last 8 Hours Ventilator Mode VC+ Ventilator Mode VC+ Ventilator Mode VC+ Ventilator Mode VC+ Ventilator Mode VC+ Ventilator Mode VC+ Ventilator Tidal Volume 480 Setting Ventilator Tidal Volume 480 Setting Ventilator Tidal Volume 480 Setting Ventilator Tidal Volume 480 Setting Ventilator Tidal Volume 480 Setting Ventilator Tidal Volume 480 Setting Ventilator Respiratory Rate 18 Setting Ventilator Respiratory Rate 18 Setting Ventilator Respiratory Rate 18 Setting Ventilator Respiratory Rate 18 Setting Ventilator Respiratory Rate 18 Setting Ventilator Respiratory Rate 18 Setting Actual Respiratory Rate 18 Actual Respiratory Rate 18 Actual Respiratory Rate 18 Positive End Expiratory 5 Pressure Positive End Expiratory 5 Pressure Positive End Expiratory 5 Pressure Positive End Expiratory 5 Pressure Positive End Expiratory 5 Pressure Positive End Expiratory 5 Pressure Peak Inspiratory Airway 30 Pressure Peak Inspiratory Airway 29 Pressure Peak Inspiratory Airway 28 Pressure Results - Laboratory Findings CBC and BMP: 04/11/17 06:33 04/11/17 06:33 ABG ABG pH 7.37 pH Units (7.32-7.45) D 04/11/17 09:23 ABG pCO2 64 mmHg (35-45) H D 04/11/17 09:23 ABG pO2 97 mmHg (85-104) 04/11/17 09:23 ABG O2 Saturation 97 % (95-98) 04/11/17 09:23 PT/INR, D-dimer PT 16.0 Seconds (9.4-12.1) H 04/07/17 03:03 Abnormal lab findings: Abnormal lab results Hgb 12.7 g/dL (12.9-16.9) L D 04/11/17 06:33 MCHC 31.4 g/dL (31.6-35.5) L 04/11/17 06:33 RDW 14.8 % (11.5-14.5) H 04/11/17 06:33 Plt Count 122 K/mcL (140-400) L 04/11/17 06:33 Band Neutrophils % 21.0 % (0-4) H 04/07/17 18:58 Metamyelocytes % 3.0 % (0) H 04/07/17 18:58 Platelet Estimate Slight Decrease (Normal) L 04/09/17 03:10 Large Platelets Present (Not Present) A 04/08/17 04:05 PT 16.0 Seconds (9.4-12.1) H 04/07/17 03:03 ABG pCO2 64 mmHg (35-45) H D 04/11/17 09:23 ABG HCO3 37 mEq/L (21-27) H 04/11/17 09:23 ABG Total CO2 39 mEq/L (20-26) H 04/11/17 09:23 ABG Base Excess 9 mEq/L (-2 to 3) H 04/11/17 09:23 Carbon Dioxide 34 mEq/L (19-29) H 04/11/17 06:33 BUN 29 mg/dL (8-26) H 04/11/17 06:33 Creatinine 0.67 mg/dL (0.72-1.25) L 04/11/17 06:33 BUN/Creatinine Ratio 43 (6-26) H 04/11/17 06:33 Glucose 137 mg/dL (70-99) H 04/11/17 06:33 POC Glucose 104 (58-89) H 04/10/17 23:51 Calculated Osmolality 302 (280-300) H 04/11/17 06:33 Total Bilirubin 2.1 mg/dL (0.2-1.2) H 04/11/17 06:33 Direct Bilirubin 1.4 mg/dL (0.0-0.5) H 04/11/17 06:33 AST 47 Units/L (5-34) H 04/11/17 06:33 ALT 84 Units/L (0-55) H 04/11/17 06:33 Alkaline Phosphatase 149 Units/L (38-126) H 04/11/17 06:33 Troponin I 0.05 ng/mL (0-0.03) H* 04/06/17 13:02 Serum Total Protein 5.8 g/dL (6.0-8.3) L 04/11/17 06:33 Albumin 2.2 g/dL (3.5-5.0) L 04/11/17 06:33 Globulin 3.6 g/dL (2.4-3.5) H 04/11/17 06:33 Albumin/Globulin Ratio 0.6 (1.1-2.2) L 04/11/17 06:33 - Clinical Findings Intake & Output: Intake & Output 04/10/17 04/11/17 04/11/17 23:59 07:59 15:59 Intake Total 120 / 120 378.6 / 378.6 1337.4 / 1337.4 Output Total 1100 / 1100 575 / 575 Balance -980 / -980 -196.4 / -196.4 1337.4 / 1337.4 Weight 73.981 kg - Attending Attestation I examined this patient and my medical decision-making was reviewed with the Resident Physician. I agree with the documented findings, disposition and treatment plan as described except to the extent set forth below. We independently had [id number] contact with the patient I spent 40min of Critical Care time with this patient. It involved decision making of high complexity to assess, manipulate, and support vital organ system failure and/or to prevent further life threatening deterioration of the patient' s condition. The time involved in the performance of separately reportable procedures was not counted toward critical care time. Patient seen and examined at bedside Labs, radiology, chart personally reviewed. Management was reviewed during multidisciplinary critical care rounds. 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 head CT overnight without evidence of acute intracerebral hemorrhage goal Villard score today of 4 Pulm: Acute on chronic hypoxic hypercarbic respiratory failure secondary to sedative likely complicated acutely by cardiogenic pulmonary edema with underlying strep pneumo pneumonia which was being treated this required emergent intubation subsequent intubation patient has acceptable oxygenation and ventilation continue to monitor ventilator needs for optimal FiO2 repeat ABG in the morning along with chest x-ray continued treatment for strep pneumo pneumonia I do not think patient has a new infectious pulmonary issue Cards: Acute on chronic systolic heart failure evidence of pulmonary edema on today's chest x-ray continue diuresis for this history of atrial fibrillation holding long-term anticoagulation because of bleeding risk while in ICU today. Rate is controlled continue to monitor blood pressure which was low likely is related to hypercapnia this is improved with resolution of acidosis but did require addition of norepinephrine which we are weaning FEN-GI: Start enteral nutrition. 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 Lines: Patient needed emergent central venous catheter placed today in the left femoral region he tore out the right CVC in a moment of delirium and agitation overnight Dispo: Remains in ICU for critical illness CODE: Full code. and daughters updated at bedside
[2017-04-11] MEDS: FentaNYL (PF) 1,000 MCG in 0.9 % Sodium Chloride 80 ML IVC SCH ×3 (09:00→19:08)
--- NOTE | 2017-04-11 09:19 | General Surgery Progress Note ---
Date of Encounter: 04/11/17 Time of Encounter: 09:00 - Assessment and Plan (1) Pneumonia Current Visit: Yes Status: Acute IV antibiotic management per pulmonary/critical care- ceftriaxone Cultures- streptococcus pneumoniae Serial chest x-rays ventilator support and management per pulmonary/critical care- reintubated this morning Qualifiers: Pneumonia type: due to unspecified organism Laterality: left Lung location: lower lobe of lung Qualified Code(s): J18.1 - Lobar pneumonia, unspecified organism (2) Biliary dyskinesia Current Visit: Yes Status: Chronic Patient was scheduled for elective cholecystectomy 6 days ago and procedure was cancelled due to hypotensive episode on induction. Transferred to ICU and was found to have pneumonia which has required mechanical ventilation. NPO- TPN started 04/10/17 due to severe protein calorie malnutrition but was stopped when patient pulled out central line. Discussed possible peg tube placement when appropriate- daughter was given education regarding peg tube Supportive care Hold surgical intervention at this time due to continued hypotension and respiratory failure (3) Hypotensive episode Current Visit: Yes Status: Acute Currently on norepinephrine at 10mcg/min, wean as tolerated Echo complete (4) Cardiomyopathy Current Visit: Yes Status: Chronic Echo shows current EF of 60-65% Qualifiers: Cardiomyopathy type: unspecified Qualified Code(s): I42.9 - Cardiomyopathy , unspecified (5) CAD in [place] artery Current Visit: Yes Status: Acute (6) ICD (implantable cardioverter-defibrillator) in place Current Visit: Yes Status: Chronic Interrogation ordered per cardiology (7) Acute respiratory failure with hypoxemia Current Visit: Yes Status: Acute Secondary to pneumonia IV antibiotic management per pulmonary/critical care- ceftriaxone Serial chest x-rays ventilator support and management per pulmonary/critical care- reintubated this morning (8) PAF (paroxysmal atrial fibrillation) Current Visit: Yes Status: Acute Rate controlled at this time Eliquis on hold at this time Subjective Patient reports: other (Events noted from last evening. Patient pulled central line out, which has been replaced this morning. Patient reintubated this morning due to inability to maintian oxygen saturations and respiratory failure ; patient requiring pressor support at 10mcg.) Objective Vital Signs - Last 8 Hours Temp Pulse Resp BP Pulse Ox 04/11/17 07:30 97.5 F L 04/11/17 06:00 78 28 154/99 100 04/11/17 05:06 97.2 F L 04/11/17 05:00 85 25 114/83 100 04/11/17 04:26 70 04/11/17 04:00 70 25 83/62 100 04/11/17 03:30 25 87/64 100 04/11/17 03:00 69 27 85/63 100 04/11/17 02:00 72 25 77/56 98 Intake and Output 04/10/17 04/11/17 04/11/17 23:59 07:59 15:59 Intake Total 120 / 120 378.6 / 378.6 Output Total 1100 / 1100 575 / 575 Balance -980 / -980 -196.4 / -196.4 Intake: IV Fluids 120 / 120 378.6 / 378.6 PRECEDEX Premix 400 mcg In 100 100 / 100 118.6 / 118.6 ml @ 0.2 MCG/KG/HR 3.98 mls/hr IVC .Q24H [facility] Rx#:[id number] Rocephin 2,000 MG In Water for 20 / 20 inj. (sterile) 20 ML @ 600 mls/ hr IVP Q24H [facility] Rx#:[id number] Sodium Phosphate 30 MMOL In 0.9 260 / 260 % Sodium Chloride 250 ML @ 37. 818 mls/hr IVPB ONCE ONE Rx#: [id number] Output: Catheter 1100 / 1100 575 / 575 Other: Weight 73.981 kg Blood Glucose* 104 Patient Weight 04/11/17 23:59 Weight 73.981 kg - General physical appearance chronically ill, other (Patient restless on ventilator support) - ENT normal mucosa, atraumatic, normocephalic - Neck Neck exam: trachea midline - Respiratory other (Ventilator support with FiO2 of 100% and PEEP of 5) rales: bilateral (coarse breath sounds bilaterally) - Cardiovascular Cardiovascular exam: Present: irregular rhythm - Abdomen Abdomen: Present: bowel sounds present, soft, non tender (no grimace with palpation), wound (OG tube in place) - Genitourinary other (steinberg catheter to SD with clear, yellow urine) - Integumentary no rash - Neurologic other (Unable to assess at this time) - Musculoskeletal other (movement of all 4 extremities noted; severe deconditioning) - Psychiatric other (Unable to assess at this time) - Labs 04/11/17 06:33 04/11/17 06:33 Diabetes panel 04/11/17 Range/Units 06:33 Sodium 142 (136-145) mEq/L Potassium 3.7 (3.5-4.5) mEq/L Chloride 99 (98-109) mEq/L Carbon Dioxide 34 H (19-29) mEq/L BUN 29 H (8-26) mg/dL Creatinine 0.67 L (0.72-1.25) mg/dL Glucose 137 H (70-99) mg/dL Calcium 9.3 (8.6-10.8) mg/dL AST 47 H (5-34) Units/L ALT 84 H (0-55) Units/L Alkaline Phosphatase 149 H (38-126) Units/L Albumin 2.2 L (3.5-5.0) g/dL Triglycerides 72 (< 150) mg/dL Calcium panel 04/11/17 Range/Units 06:33 Calcium 9.3 (8.6-10.8) mg/dL Phosphorus 4.1 D (2.3-4.7) mg/dL Albumin 2.2 L (3.5-5.0) g/dL Pituitary panel 04/11/17 Range/Units 06:33 Sodium 142 (136-145) mEq/L Potassium 3.7 (3.5-4.5) mEq/L Chloride 99 (98-109) mEq/L Carbon Dioxide 34 H (19-29) mEq/L BUN 29 H (8-26) mg/dL Creatinine 0.67 L (0.72-1.25) mg/dL Glucose 137 H (70-99) mg/dL Calcium 9.3 (8.6-10.8) mg/dL Adrenal panel 04/11/17 Range/Units 06:33 Sodium 142 (136-145) mEq/L Potassium 3.7 (3.5-4.5) mEq/L Chloride 99 (98-109) mEq/L Carbon Dioxide 34 H (19-29) mEq/L BUN 29 H (8-26) mg/dL Creatinine 0.67 L (0.72-1.25) mg/dL Glucose 137 H (70-99) mg/dL Calcium 9.3 (8.6-10.8) mg/dL Total Bilirubin 2.1 H (0.2-1.2) mg/dL AST 47 H (5-34) Units/L ALT 84 H (0-55) Units/L Alkaline Phosphatase 149 H (38-126) Units/L Albumin 2.2 L (3.5-5.0) g/dL - VTE Documentation of Mechanical Device: Intermittent pneumatic compression device Consult Discharge Plan - Plan Referrals: Ellen Vora DO [Primary Care Provider] - - Attending Attestation For this encounter, 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
[2017-04-11 09:28] LABS: ABG Base Excess 9 mEq/L (-2 to 3); ABG HCO3 37 mEq/L (21-27); ABG Oxygen Saturation 97 % (95-98); ABG PCO2 64 mmHg (35-45); ABG PH 7.37 pH Units (7.32-7.45); ABG PO2 97 mmHg (85-104); ABG TCO2 39 mEq/L (20-26); Blood Gas Modality ASSIST CONTROL; Blood Gas PEEP 5 cm H2O; Blood Gas Respiration Rate 26; Blood Gas VT 420 cc
[2017-04-11] MEDS: Sennosides/Docusate Sodium TABLET PO SCH ×2 (09:30→20:37)
[2017-04-11] MEDS: cefTRIAXone 2,000 MG in Water for inj. (sterile) 20 ML IVP SCH (09:59)
[2017-04-11] MEDS: Pantoprazole 40 MG VIAL IVP SCH (10:02)
[2017-04-11] MEDS: Chlorhexidine Rinse 15 ML MOUTHWASH MM SCH ×2 (10:03→20:37)
[2017-04-11] MEDS ORDERED: Furosemide 40 MG/4 ML VIAL IVP ONE (10:11)
[2017-04-11 15:50] LABS: Hematocrit 37.3 % (37.5-50.1); Hemoglobin 12.1 g/dL (12.9-16.9); Mean Corpuscular HGB Conc 32.4 g/dL (31.6-35.5); Mean Corpuscular Hemoglobin 28.9 pg (28.0-33.3); Red Blood Count 4.19 M/mcL (4.19-5.50); Red Cell Distribution Width 14.6 % (11.5-14.5)
[2017-04-11 15:51] LABS: Basophils % 0.2 %; Eosinophils % 0.4 %; Immature Granulocytes % 1.1 % (0-4); Lymphocytes # 0.6 K/mcL (0.6-4.6); Lymphocytes % 6.6 %; Mean Platelet Volume 10.3 fL (9.4-12.4); Monocytes # 0.4 K/mcL (0.0-1.3); Monocytes % 4.8 %; Neutrophils # 7.8 K/mcL (1.6-8.9); Platelet Count 151 K/mcL (140-400); Segmented Neutrophils % 86.9 %
[2017-04-11 16:06] LABS: Alanine Aminotransferase 77 Units/L (0-55); Albumin 2.2 g/dL (3.5-5.0); Albumin/Globulin Ratio 0.6 (1.1-2.2); Alkaline Phosphatase 151 Units/L (38-126); Aspartate Amino Transferase 42 Units/L (5-34); BUN/Creatinine Ratio 37 (6-26); Bilirubin,Direct 1.5 mg/dL (0.0-0.5); Bilirubin,Indirect 0.8 mg/dL (0.0-1.2); Bilirubin,Total 2.3 mg/dL (0.2-1.2); Blood Urea Nitrogen 26 mg/dL (8-26); Calcium 9.5 mg/dL (8.6-10.8); Carbon Dioxide 37 mEq/L (19-29); Chloride 97 mEq/L (98-109); Globulin 3.7 g/dL (2.4-3.5); Glucose 95 mg/dL (70-99); Magnesium 1.6 mg/dL (1.6-2.6); Osmolality,Calculated 301 (280-300); Potassium 3.3 mEq/L (3.5-4.5); Sodium 143 mEq/L (136-145); Total Protein 5.9 g/dL (6.0-8.3); eGFR For African Americans > 60 (> 60); eGFR For Non-African Americans > 60 (> 60)
[2017-04-11] MEDS: FentaNYL (PF) 3,000 MCG in 0.9 % Sodium Chloride 240 ML IVC SCH (23:30)
[2017-04-12] MEDS: Lacri-Lube 3.5 GM TUBE BOTH EYES SCH ×7 (00:38→23:36)
[2017-04-12] MEDS: *HR* Morphine 2 MG/ML SYRINGE IVP SCH ×6 (02:09→23:36)
[2017-04-12] MEDS: Ipratropium/Albuterol Neb 3 ML IH SCH ×6 (03:27→23:45)
[2017-04-12 04:17] LABS: Alanine Aminotransferase 62 Units/L (0-55); Albumin/Globulin Ratio 0.6 (1.1-2.2); Alkaline Phosphatase 144 Units/L (38-126); Aspartate Amino Transferase 31 Units/L (5-34); BUN/Creatinine Ratio 31 (6-26); Bilirubin,Direct 1.9 mg/dL (0.0-0.5); Bilirubin,Total 2.9 mg/dL (0.2-1.2); Blood Urea Nitrogen 23 mg/dL (8-26); Calcium 9.3 mg/dL (8.6-10.8); Carbon Dioxide 36 mEq/L (19-29); Chloride 97 mEq/L (98-109); Globulin 3.6 g/dL (2.4-3.5); Glucose 111 mg/dL (70-99); Magnesium 1.6 mg/dL (1.6-2.6); Osmolality,Calculated 298 (280-300); Sodium 142 mEq/L (136-145); Total Protein 5.6 g/dL (6.0-8.3); eGFR For African Americans > 60 (> 60); eGFR For Non-African Americans > 60 (> 60)
[2017-04-12 04:20] LABS: Phosphorous 1.7 mg/dL (2.3-4.7)
[2017-04-12 04:22] LABS: Basophils % 0.3 %; Eosinophils % 0.3 %; Hematocrit 37.6 % (37.5-50.1); Hemoglobin 12.2 g/dL (12.9-16.9); Immature Granulocytes % 2.4 % (0-4); Lymphocytes # 0.6 K/mcL (0.6-4.6); Lymphocytes % 8.1 %; Mean Corpuscular HGB Conc 32.4 g/dL (31.6-35.5); Mean Corpuscular Hemoglobin 28.9 pg (28.0-33.3); Mean Corpuscular Volume 89.1 fL (83.0-100.0); Mean Platelet Volume 10.3 fL (9.4-12.4); Monocytes # 0.5 K/mcL (0.0-1.3); Monocytes % 5.8 %; Neutrophils # 6.5 K/mcL (1.6-8.9); Platelet Count 174 K/mcL (140-400); Red Blood Count 4.22 M/mcL (4.19-5.50); Red Cell Distribution Width 14.6 % (11.5-14.5); Segmented Neutrophils % 83.1 %
[2017-04-12 04:22] LABS: ABG Base Excess 12 mEq/L (-2 to 3); ABG HCO3 38 mEq/L (21-27); ABG Oxygen Saturation 97 % (95-98); ABG PCO2 51 mmHg (35-45); ABG PH 7.48 pH Units (7.32-7.45); ABG PO2 89 mmHg (85-104); ABG TCO2 39 mEq/L (20-26); Blood Gas Modality VC; Blood Gas PEEP 8 cm H2O; Blood Gas Respiration Rate 18; Blood Gas VT 480 cc
[2017-04-12] MEDS ORDERED: Potassium Phosphate 44 MEQ in 0.9 % Sodium Chloride 250 ML IVPB PRN (04:58)
[2017-04-12] MEDS: Potassium Chloride 40 MEQ/200 ML BAG IVPB PRN ×2 (06:01→23:06)
--- NOTE | 2017-04-12 09:19 | Pulmonology Progress Note ---
<Wilfrid Stringer - Last Filed: 04/12/17 13:12> Date of Encounter: 04/12/17 Time of Encounter: 09:19 Assessment and Plan (1) Acute and chronic respiratory failure with hypoxia Current Visit: Yes Status: Acute Likely secondary to pneumonia. Unfortunately the patient was reintubated yesterday. He is currently on mechanical ventilation. Oxygen saturation is improved with mechanical ventilation, ABG slightly alkalotic today. Chest x- ray looks much improved. Continue when necessary diuresis to keep the patient net negative. (2) Pneumonia Current Visit: Yes Status: Acute Secondary to Streptococcus pneumoniae. Patient had decompensation of his respiratory status as discussed above and is now intubated again. Sensitivities show that his strep pneumo is sensitive to Rocephin. Continue Rocephin. Repeat cultures including blood cultures and sputum cultures pending. Qualifiers: Pneumonia type: due to unspecified organism Laterality: left Lung location: lower lobe of lung Qualified Code(s): J18.1 - Lobar pneumonia, unspecified organism (3) Septic shock Current Visit: Yes Status: Acute Secondary to strep pneumoniae pneumonia as discussed above. Patient is required norepinephrine for vasopressor support. Continue to titrate norepinephrine for map of 65. Lactate normal. Repeat cultures pending (4) CAD in [place] artery Current Visit: Yes Status: Acute No evidence of ACS. Troponins negative, no ischemic changes. Cardiology has evaluated the patient and recommended no further intervention. (5) Cardiomyopathy Current Visit: Yes Status: Chronic Echo shows normal EF with mild diastolic dysfunction. No evidence of acute cardiomyopathy. Continue to monitor. Qualifiers: Cardiomyopathy type: unspecified Qualified Code(s): I42.9 - Cardiomyopathy , unspecified (6) Hypotensive episode Current Visit: Yes Status: Acute Patient became hypotensive during induction of anesthesia for his is elective procedure on Monday. Possibly related to medications however underlying infection could have contributed as well. Patient is currently hypotensive during his septic shock. He did not become acutely hypotensive during sedation for endotracheal intubation yesterday. (7) Biliary dyskinesia Current Visit: Yes Status: Chronic Patient was supposed to undergo elective cholecystectomy on Monday however this was aborted due to hypotensive episode during induction of anesthesia as discussed above. We will continue to delay surgery until the patient's clinical status has improved. Surgery is following. (8) PAF (paroxysmal atrial fibrillation) Current Visit: Yes Status: Acute Patient is currently in paced rhythm. He is on chronic anticoagulation with Eliquis at home. Continue to hold given the patient's critical condition. Rate is controlled. Patient is on heparin for DVT prophylaxis Subjective Principal diagnosis: Hypotensive event Interval history: Patient seen and examined at bedside. Patient is currently intubated and sedated. Does not appear to be in any acute distress. Objective PUL Vital signs: Last Vital Signs Temp 97.9 F 04/12/17 07:31 Pulse 77 04/12/17 08:53 Resp 18 04/12/17 08:00 BP 99/63 04/12/17 08:00 Pulse Ox 95 04/12/17 08:00 General appearance: asleep ENT: oropharynx moist Effort: normal Auscultation: bilateral: rhonchi Cardiovascular: regular rate and rhythm Gastrointestinal: hypoactive bowel sounds, soft, non-tender Extremities: no cyanosis, no clubbing, edema (Trace bilaterally) unable to assess due to mental status Ventilator Settings Ventilator Settings: Ventilator Settings, Last 8 Hours Ventilator Mode VC+ Ventilator Mode VC+ Ventilator Mode VC+ Ventilator Mode VC+ Ventilator Mode VC+ Ventilator Mode VC+ Ventilator Mode VC+ Ventilator Mode VC+ Ventilator Mode VC+ Ventilator Mode VC+ Ventilator Mode VC+ Ventilator Tidal Volume 480 Setting Ventilator Tidal Volume 480 Setting Ventilator Tidal Volume 480 Setting Ventilator Tidal Volume 480 Setting Ventilator Tidal Volume 480 Setting Ventilator Tidal Volume 480 Setting Ventilator Tidal Volume 480 Setting Ventilator Tidal Volume 480 Setting Ventilator Tidal Volume 480 Setting Ventilator Tidal Volume 480 Setting Ventilator Tidal Volume 480 Setting Ventilator Respiratory Rate 18 Setting Ventilator Respiratory Rate 18 Setting Ventilator Respiratory Rate 18 Setting Ventilator Respiratory Rate 18 Setting Ventilator Respiratory Rate 18 Setting Ventilator Respiratory Rate 18 Setting Ventilator Respiratory Rate 18 Setting Ventilator Respiratory Rate 18 Setting Ventilator Respiratory Rate 18 Setting Ventilator Respiratory Rate 18 Setting Ventilator Respiratory Rate 18 Setting Actual Respiratory Rate 18 Actual Respiratory Rate 18 Actual Respiratory Rate 18 Actual Respiratory Rate 18 Actual Respiratory Rate 18 Positive End Expiratory 8 Pressure Positive End Expiratory 8 Pressure Positive End Expiratory 8 Pressure Positive End Expiratory 8 Pressure Positive End Expiratory 8 Pressure Positive End Expiratory 8 Pressure Positive End Expiratory 8 Pressure Positive End Expiratory 8 Pressure Positive End Expiratory 8 Pressure Positive End Expiratory 8 Pressure Positive End Expiratory 8 Pressure Peak Inspiratory Airway 26 Pressure Peak Inspiratory Airway 26 Pressure Peak Inspiratory Airway 26 Pressure Peak Inspiratory Airway 27 Pressure Peak Inspiratory Airway 26 Pressure Results - Laboratory Findings CBC and BMP: 04/12/17 03:55 04/12/17 03:55 ABG ABG pH 7.48 pH Units (7.32-7.45) H 04/12/17 04:16 ABG pCO2 51 mmHg (35-45) H 04/12/17 04:16 ABG pO2 89 mmHg (85-104) 04/12/17 04:16 ABG O2 Saturation 97 % (95-98) 04/12/17 04:16 PT/INR, D-dimer PT 16.0 Seconds (9.4-12.1) H 04/07/17 03:03 Abnormal lab findings: Abnormal lab results Hgb 12.2 g/dL (12.9-16.9) L 04/12/17 03:55 RDW 14.6 % (11.5-14.5) H 04/12/17 03:55 Band Neutrophils % 21.0 % (0-4) H 04/07/17 18:58 Metamyelocytes % 3.0 % (0) H 04/07/17 18:58 Platelet Estimate Slight Decrease (Normal) L 04/09/17 03:10 Large Platelets Present (Not Present) A 04/08/17 04:05 PT 16.0 Seconds (9.4-12.1) H 04/07/17 03:03 ABG pH 7.48 pH Units (7.32-7.45) H 04/12/17 04:16 ABG pCO2 51 mmHg (35-45) H 04/12/17 04:16 ABG HCO3 38 mEq/L (21-27) H 04/12/17 04:16 ABG Total CO2 39 mEq/L (20-26) H 04/12/17 04:16 ABG Base Excess 12 mEq/L (-2 to 3) H 04/12/17 04:16 Potassium 3.0 mEq/L (3.5-4.5) L 04/12/17 03:55 Chloride 97 mEq/L (98-109) L 04/12/17 03:55 Carbon Dioxide 36 mEq/L (19-29) H 04/12/17 03:55 BUN/Creatinine Ratio 31 (6-26) H 04/12/17 03:55 Glucose 111 mg/dL (70-99) H 04/12/17 03:55 Phosphorus 1.7 mg/dL (2.3-4.7) L D 04/12/17 03:55 Total Bilirubin 2.9 mg/dL (0.2-1.2) H 04/12/17 03:55 Direct Bilirubin 1.9 mg/dL (0.0-0.5) H 04/12/17 03:55 ALT 62 Units/L (0-55) H 04/12/17 03:55 Alkaline Phosphatase 144 Units/L (38-126) H 04/12/17 03:55 Troponin I 0.05 ng/mL (0-0.03) H* 04/06/17 13:02 Serum Total Protein 5.6 g/dL (6.0-8.3) L 04/12/17 03:55 Albumin 2.0 g/dL (3.5-5.0) L 04/12/17 03:55 Globulin 3.6 g/dL (2.4-3.5) H 04/12/17 03:55 Albumin/Globulin Ratio 0.6 (1.1-2.2) L 04/12/17 03:55 Prealbumin 14.0 mg/dL (18.0-45.0) L 04/11/17 06:33 - Microbiology Findings Microbiology Findings: Microbiology, Last 48 Hours 04/06/17 17:50 Blood Culture - Final Peripheral Venipuncture No growth. 04/06/17 17:50 Blood Culture - Final Peripheral Venipuncture No growth. 04/11/17 17:27 Sputum Culture - Preliminary Sputum - Clinical Findings Intake & Output: Intake & Output 04/11/17 04/12/17 04/12/17 23:59 07:59 15:59 Intake Total 494 / 494 587.5 / 587.5 Output Total 1175 / 1175 350 / 350 Balance -681 / -681 237.5 / 237.5 Weight 76.737 kg - VTE Documentation of Mechanical Device: Intermittent pneumatic compression device Consult Discharge Plan - Plan Referrals: Ellen Vora, [Primary Care Provider] - <Shiva Balbuena - Last Filed: 04/12/17 15:34> Date of Encounter: 04/12/17 Assessment and Plan (1) Acute and chronic respiratory failure with hypoxia Current Visit: Yes Status: Acute (2) CAD in [place] artery Current Visit: Yes Status: Acute (3) Hypotensive episode Current Visit: Yes Status: Acute (4) PAF (paroxysmal atrial fibrillation) Current Visit: Yes Status: Acute (5) Biliary dyskinesia Current Visit: Yes Status: Chronic (6) Cardiomyopathy Current Visit: Yes Status: Chronic Qualifiers: Cardiomyopathy type: unspecified Qualified Code(s): I42.9 - Cardiomyopathy , unspecified Objective PUL Vital signs: Last Vital Signs Temp 97.8 F 04/12/17 11:41 Pulse 74 04/12/17 15:00 Resp 18 04/12/17 15:00 BP 83/62 04/12/17 15:00 Pulse Ox 100 04/12/17 15:00 Ventilator Settings Ventilator Settings: Ventilator Settings, Last 8 Hours Ventilator Mode VC+ Ventilator Mode VC+ Ventilator Mode VC+ Ventilator Mode VC+ Ventilator Mode VC+ Ventilator Mode VC+ Ventilator Mode VC+ Ventilator Mode VC+ Ventilator Mode VC+ Ventilator Tidal Volume 480 Setting Ventilator Tidal Volume 480 Setting Ventilator Tidal Volume 480 Setting Ventilator Tidal Volume 480 Setting Ventilator Tidal Volume 480 Setting Ventilator Tidal Volume 480 Setting Ventilator Tidal Volume 480 Setting Ventilator Tidal Volume 480 Setting Ventilator Tidal Volume 480 Setting Ventilator Respiratory Rate 18 Setting Ventilator Respiratory Rate 18 Setting Ventilator Respiratory Rate 18 Setting Ventilator Respiratory Rate 18 Setting Ventilator Respiratory Rate 18 Setting Ventilator Respiratory Rate 18 Setting Ventilator Respiratory Rate 18 Setting Ventilator Respiratory Rate 18 Setting Ventilator Respiratory Rate 18 Setting Actual Respiratory Rate 18 Actual Respiratory Rate 18 Actual Respiratory Rate 18 Actual Respiratory Rate 18 Actual Respiratory Rate 18 Actual Respiratory Rate 18 Actual Respiratory Rate 18 Actual Respiratory Rate 18 Actual Respiratory Rate 18 Positive End Expiratory 8 Pressure Positive End Expiratory 8 Pressure Positive End Expiratory 8 Pressure Positive End Expiratory 8 Pressure Positive End Expiratory 8 Pressure Positive End Expiratory 8 Pressure Positive End Expiratory 8 Pressure Positive End Expiratory 8 Pressure Positive End Expiratory 8 Pressure Peak Inspiratory Airway 26 Pressure Peak Inspiratory Airway 26 Pressure Peak Inspiratory Airway 26 Pressure Peak Inspiratory Airway 26 Pressure Peak Inspiratory Airway 26 Pressure Peak Inspiratory Airway 26 Pressure Peak Inspiratory Airway 26 Pressure Peak Inspiratory Airway 26 Pressure Peak Inspiratory Airway 26 Pressure Results - Laboratory Findings CBC and BMP: 04/12/17 03:55 04/12/17 03:55 ABG ABG pH 7.48 pH Units (7.32-7.45) H 04/12/17 04:16 ABG pCO2 51 mmHg (35-45) H 04/12/17 04:16 ABG pO2 89 mmHg (85-104) 04/12/17 04:16 ABG O2 Saturation 97 % (95-98) 04/12/17 04:16 PT/INR, D-dimer PT 16.0 Seconds (9.4-12.1) H 04/07/17 03:03 Abnormal lab findings: Abnormal lab results Hgb 12.2 g/dL (12.9-16.9) L 04/12/17 03:55 RDW 14.6 % (11.5-14.5) H 04/12/17 03:55 Band Neutrophils % 21.0 % (0-4) H 04/07/17 18:58 Metamyelocytes % 3.0 % (0) H 04/07/17 18:58 Platelet Estimate Slight Decrease (Normal) L 04/09/17 03:10 Large Platelets Present (Not Present) A 04/08/17 04:05 PT 16.0 Seconds (9.4-12.1) H 04/07/17 03:03 ABG pH 7.48 pH Units (7.32-7.45) H 04/12/17 04:16 ABG pCO2 51 mmHg (35-45) H 04/12/17 04:16 ABG HCO3 38 mEq/L (21-27) H 04/12/17 04:16 ABG Total CO2 39 mEq/L (20-26) H 04/12/17 04:16 ABG Base Excess 12 mEq/L (-2 to 3) H 04/12/17 04:16 Potassium 3.0 mEq/L (3.5-4.5) L 04/12/17 03:55 Chloride 97 mEq/L (98-109) L 04/12/17 03:55 Carbon Dioxide 36 mEq/L (19-29) H 04/12/17 03:55 BUN/Creatinine Ratio 31 (6-26) H 04/12/17 03:55 Glucose 111 mg/dL (70-99) H 04/12/17 03:55 Phosphorus 1.7 mg/dL (2.3-4.7) L D 04/12/17 03:55 Total Bilirubin 2.9 mg/dL (0.2-1.2) H 04/12/17 03:55 Direct Bilirubin 1.9 mg/dL (0.0-0.5) H 04/12/17 03:55 ALT 62 Units/L (0-55) H 04/12/17 03:55 Alkaline Phosphatase 144 Units/L (38-126) H 04/12/17 03:55 Troponin I 0.05 ng/mL (0-0.03) H* 04/06/17 13:02 Serum Total Protein 5.6 g/dL (6.0-8.3) L 04/12/17 03:55 Albumin 2.0 g/dL (3.5-5.0) L 04/12/17 03:55 Globulin 3.6 g/dL (2.4-3.5) H 04/12/17 03:55 Albumin/Globulin Ratio 0.6 (1.1-2.2) L 04/12/17 03:55 Prealbumin 14.0 mg/dL (18.0-45.0) L 04/11/17 06:33 - Microbiology Findings Microbiology Findings: Microbiology, Last 48 Hours 04/11/17 17:27 Sputum Culture - Preliminary Sputum 04/06/17 17:50 Blood Culture - Final Peripheral Venipuncture No growth. 04/06/17 17:50 Blood Culture - Final Peripheral Venipuncture No growth. - Clinical Findings Intake & Output: Intake & Output 04/11/17 04/12/17 04/12/17 23:59 07:59 15:59 Intake Total 494 / 494 587.5 / 587.5 100 / 100 Output Total 1175 / 1175 350 / 350 100 / 100 Balance -681 / -681 237.5 / 237.5 0 / 0 Weight 76.737 kg - Attending Attestation I examined this patient and my medical decision-making was reviewed with the Resident Physician. I agree with the documented findings, disposition and treatment plan as described except to the extent set forth below. We independently had [id number] contact with the patient Patient seen and examined at bedside Labs, radiology, chart personally reviewed. Management was reviewed during multidisciplinary critical care rounds. 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 Minute ventilation decreased because of alkalosis on ABG Cards: History of ischemic cardiomyopathy with acute cardiogenic pulmonary edema continue diuresis FEN-GI: Continue enteral nutrition plan for definitive nutrition source with PEG tube placement today per general surgery recommendations continue PPI prophylaxis Renal: Renal function remains good monitor urine output monitor serum creatinine daily replace electrolytes per protocol while actively diuresing ID: Treating with ceftriaxone for strep pneumo repeat cultures does far negative continue to monitor Heme/Onc: Endo: Glucose Monitored Integ/MSK: Skin Care per routine ICU Nursing Protocol to prevent ulcers. Lines: All lines examined without evidence of infection : Dispo: Remain in ICU CODE: I spoke with the family including 2 adult children Pia and Yazan and updated them set overall prognosis is guarded given debilitation failure of extubation and significant delirium they were given opportunity to ask questions and they were answered
[2017-04-12] MEDS: cefTRIAXone 2,000 MG in Water for inj. (sterile) 20 ML IVP SCH (09:21)
[2017-04-12] MEDS: Chlorhexidine Rinse 15 ML MOUTHWASH MM SCH ×2 (09:22→21:33)
[2017-04-12] MEDS: Pantoprazole 40 MG VIAL IVP SCH (09:22)
[2017-04-12] MEDS: Sennosides/Docusate Sodium TABLET PO SCH ×2 (09:22→21:33)
[2017-04-12] MEDS: *HR* Heparin 5,000 UNIT/ML VIAL SQ SCH ×2 (09:45→17:11)
--- NOTE | 2017-04-12 10:17 | General Surgery Progress Note ---
Date of Encounter: 04/12/17 Time of Encounter: 09:45 - Assessment and Plan (1) Pneumonia Current Visit: Yes Status: Acute IV antibiotic management per pulmonary/critical care- ceftriaxone Cultures- streptococcus pneumoniae Serial chest x-rays ventilator support and management per pulmonary/critical care- reintubated this morning Qualifiers: Pneumonia type: due to unspecified organism Laterality: left Lung location: lower lobe of lung Qualified Code(s): J18.1 - Lobar pneumonia, unspecified organism (2) Biliary dyskinesia Current Visit: Yes Status: Chronic Patient was scheduled for elective cholecystectomy 7 days ago and procedure was cancelled due to hypotensive episode on induction. Transferred to ICU and was found to have pneumonia which has required mechanical ventilation. Tube feeds via OG tube being tolerated- stop for potential peg tube placement later today Plan for possible peg tube placement later today with Dr. Goodman- daughter was given education regarding peg tube Supportive care Hold surgical intervention at this time due to continued hypotension and respiratory failure (3) Hypotensive episode Current Visit: Yes Status: Acute Norepinephrine off at this time (4) Cardiomyopathy Current Visit: Yes Status: Chronic Echo shows current EF of 60-65% Qualifiers: Cardiomyopathy type: unspecified Qualified Code(s): I42.9 - Cardiomyopathy , unspecified (5) CAD in [place] artery Current Visit: Yes Status: Acute (6) ICD (implantable cardioverter-defibrillator) in place Current Visit: Yes Status: Chronic Interrogation ordered per cardiology (7) Acute respiratory failure with hypoxemia Current Visit: Yes Status: Acute Secondary to pneumonia IV antibiotic management per pulmonary/critical care- ceftriaxone Serial chest x-rays ventilator support and management per pulmonary/critical care- reintubated this morning (8) PAF (paroxysmal atrial fibrillation) Current Visit: Yes Status: Acute Rate controlled at this time Eliquis on hold at this time (9) Severe protein-calorie malnutrition Current Visit: Yes Status: Acute Plan for peg tube placement later today with Dr. Goodman Subjective Patient reports: fever (Tmax 100.3), other (Patient resting comfortably on ventilator support- propofol and fentanyl for sedation; off pressor support at this time) Objective Vital Signs - Last 8 Hours Temp Pulse Resp BP Pulse Ox 04/12/17 09:57 18 78/54 100 04/12/17 09:00 75 18 89/59 95 04/12/17 08:53 77 04/12/17 08:00 71 18 99/63 95 04/12/17 07:47 18 105/58 95 04/12/17 07:31 97.9 F 04/12/17 06:00 82 18 105/58 95 04/12/17 05:49 18 99/63 90 04/12/17 05:00 80 18 96/62 95 04/12/17 04:00 81 18 106/65 94 04/12/17 03:42 72 04/12/17 03:30 18 99/60 93 04/12/17 03:12 100.3 F H 04/12/17 03:00 72 18 89/59 96 Intake and Output 04/11/17 04/12/17 04/12/17 23:59 07:59 15:59 Intake Total 494 / 494 587.5 / 587.5 100 / 100 Output Total 1175 / 1175 350 / 350 Balance -681 / -681 237.5 / 237.5 100 / 100 Intake: IV Fluids 494 / 494 356.5 / 356.5 100 / 100 FentaNYL (PF) 1,000 MCG In 0.9 200 / 200 % Sodium Chloride 80 ML @ 50 MCG/HR 5 mls/hr IVC CONT [facility] Rx #:[id number] FentaNYL (PF) 3,000 MCG In 0.9 121.0 / 121.0 % Sodium Chloride 240 ML @ 50 MCG/HR 5 mls/hr IVC CONT [facility] Rx #:[id number] Levophed 4 MG In Dextrose 5% 254 / 254 135.5 / 135.5 250 ML @ 0 MCG/MIN IVC CONT [facility] Rx#:[id number] Diprivan 1,000 mg In 100 ml @ 40 / 40 100 / 100 100 / 100 20 MCG/KG/MIN 9.732 mls/hr IVC .[id number] [facility] Rx#:[id number] Tube Feeding 201 / 201 Free Water 30 / 30 Output: Catheter 1175 / 1175 350 / 350 Other: Weight 76.737 kg Blood Glucose* 79 Patient Weight 04/12/17 23:59 Weight 76.737 kg - General physical appearance other (Patient resting comfortably on ventilator support) - ENT normal mucosa, atraumatic, normocephalic - Neck Neck exam: trachea midline - Respiratory clear to auscultation, other (Ventilator support with FiO2 of 60% and PEEP of 8) - Cardiovascular Cardiovascular exam: Present: irregular rhythm (paced rhythm) - Abdomen Abdomen: Present: bowel sounds present, soft, non tender (no grimace with palpation), wound (OG tube with tube feeds- no residuals) - Genitourinary other (steinberg catheter to SD with clear, yellow urine noted) - Neurologic other (Unable to assess- sedation) - Musculoskeletal other (Unable to assess- sedation) - Psychiatric other (Unable to assess- sedation) - Labs 04/12/17 03:55 04/12/17 03:55 Diabetes panel 04/11/17 04/12/17 Range/Units 15:40 03:55 Sodium 143 142 (136-145) mEq/L Potassium 3.3 L 3.0 L (3.5-4.5) mEq/L Chloride 97 L 97 L (98-109) mEq/L Carbon Dioxide 37 H 36 H (19-29) mEq/L BUN 26 23 (8-26) mg/dL Creatinine 0.70 L 0.75 (0.72-1.25) mg/dL Glucose 95 111 H (70-99) mg/dL Calcium 9.5 9.3 (8.6-10.8) mg/dL AST 42 H 31 (5-34) Units/L ALT 77 H 62 H (0-55) Units/L Alkaline Phosphatase 151 H 144 H (38-126) Units/L Albumin 2.2 L 2.0 L (3.5-5.0) g/dL Calcium panel 04/11/17 04/12/17 Range/Units 15:40 03:55 Calcium 9.5 9.3 (8.6-10.8) mg/dL Phosphorus 1.7 L D (2.3-4.7) mg/dL Albumin 2.2 L 2.0 L (3.5-5.0) g/dL Pituitary panel 04/11/17 04/12/17 Range/Units 15:40 03:55 Sodium 143 142 (136-145) mEq/L Potassium 3.3 L 3.0 L (3.5-4.5) mEq/L Chloride 97 L 97 L (98-109) mEq/L Carbon Dioxide 37 H 36 H (19-29) mEq/L BUN 26 23 (8-26) mg/dL Creatinine 0.70 L 0.75 (0.72-1.25) mg/dL Glucose 95 111 H (70-99) mg/dL Calcium 9.5 9.3 (8.6-10.8) mg/dL Adrenal panel 04/11/17 04/12/17 Range/Units 15:40 03:55 Sodium 143 142 (136-145) mEq/L Potassium 3.3 L 3.0 L (3.5-4.5) mEq/L Chloride 97 L 97 L (98-109) mEq/L Carbon Dioxide 37 H 36 H (19-29) mEq/L BUN 26 23 (8-26) mg/dL Creatinine 0.70 L 0.75 (0.72-1.25) mg/dL Glucose 95 111 H (70-99) mg/dL Calcium 9.5 9.3 (8.6-10.8) mg/dL Total Bilirubin 2.3 H 2.9 H (0.2-1.2) mg/dL AST 42 H 31 (5-34) Units/L ALT 77 H 62 H (0-55) Units/L Alkaline Phosphatase 151 H 144 H (38-126) Units/L Albumin 2.2 L 2.0 L (3.5-5.0) g/dL - VTE Documentation of Mechanical Device: Intermittent pneumatic compression device Consult Discharge Plan - Plan Referrals: Ellen Vora DO [Primary Care Provider] - - Attending Attestation For this encounter, I have reviewed the MEDICAL RECORDS TECH or PA documentation, treatment plan, and medical decision making; and I have had face to face time with this patient.
[2017-04-12] MEDS ORDERED: Furosemide 40 MG/4 ML VIAL IVP ONE (11:38)
[2017-04-12] MEDS: Dexmedetomidine HCl 400 MCG/100 ML MLS IVC SCH (16:27)
[2017-04-12 17:14] LABS: Potassium 3.4 mEq/L (3.5-4.5)
[2017-04-12 17:16] LABS: Phosphorous 2.9 mg/dL (2.3-4.7)
[2017-04-12] MEDS ORDERED: Albumin Human 5% 25.0 GM/500 ML VIAL ONE (17:33)
[2017-04-12 17:34] LABS: ABG Base Excess 12 mEq/L (-2 to 3); ABG HCO3 37 mEq/L (21-27); ABG Oxygen Saturation 99 % (95-98); ABG PCO2 49 mmHg (35-45); ABG PH 7.49 pH Units (7.32-7.45); ABG PO2 107 mmHg (85-104); ABG TCO2 39 mEq/L (20-26)
[2017-04-12] MEDS ORDERED: Hydrocortisone Sodium Succ 100 MG/2 ML VIAL IVP SCH (17:45)
[2017-04-12] MEDS: Norepinephrine 4 MG in D5% in Water 250 ML IVC SCH (17:45)
[2017-04-12] MEDS ORDERED: EPINEPHrine 1 MG in D5% in Water 250 ML IVC SCH (17:45)
[2017-04-12] MEDS ORDERED: Hydrocortisone Sodium Succ 100 MG/2 ML VIAL ONE (17:47)
[2017-04-12] MEDS ORDERED: Vancomycin 1,250 MG in D5% in Water 250 ML IVPB SCH ×2 (18:00)
[2017-04-12] MEDS ORDERED: Piperacillin/Tazobactam 3.375 GM in D5% in Water 50 ML IVPB SCH (18:00)
[2017-04-12 18:05] LABS: Basophils % 0.1 %; Eosinophils # 0.1 K/mcL (0.0-0.6); Eosinophils % 1.5 %; Hematocrit 35.6 % (37.5-50.1); Hemoglobin 11.5 g/dL (12.9-16.9); Immature Platelets 5.7 % (1.1-6.1); Lymphocytes # 0.5 K/mcL (0.6-4.6); Lymphocytes % 7.1 %; Mean Corpuscular HGB Conc 32.3 g/dL (31.6-35.5); Mean Corpuscular Hemoglobin 28.8 pg (28.0-33.3); Mean Platelet Volume 10.3 fL (9.4-12.4); Monocytes # 0.5 K/mcL (0.0-1.3); Monocytes % 6.9 %; Neutrophils # 6.1 K/mcL (1.6-8.9); Platelet Count 231 K/mcL (140-400); Red Cell Distribution Width 14.8 % (11.5-14.5); Segmented Neutrophils % 82.4 %
--- NOTE | 2017-04-12 18:14 | Procedure Note ---
<Wilfrid Stringer - Last Filed: 04/12/17 18:10> Date of procedure: 04/12/17 Pre-op diagnosis: Hypotension Post-op diagnosis: same Procedure: Radial arterial line: Written consent was obtained from the daughter. Timeout was performed. The right wrist was surveyed using ultrasound and deemed to be a suitable target. The area was cleaned and draped in usual sterile fashion. Under ultrasound guidance the needle was advanced into the right radial artery. Bright red, pulsatile blood flow was returned. The guidewire was advanced through the needle and into the artery without resistance. The needle was removed and a small matt in the skin was made. The catheter was advanced over the guidewire and into the right radial artery. The guidewire was removed intact. The catheter was connected to an arterial line pressure transducer monitor and arterial waveform was shown. The catheter was then sutured in place. The area was cleaned and dressed by nursing staff. The patient tolerated the procedure well, there were no immediate complications. The attending physician, Dr. Balbuena, was present for the entire procedure. Anesthesia: GETA Surgeon: Wilfrid Stringer Estimated blood loss (cc): 10 IV fluids (cc): 0 Condition: critical Disposition: ICU <Shiva Balbuena - Last Filed: 04/17/17 06:49> - Attending Attestation I agree with the documentation of this procedure as outlined by Dr Stringer. I was present for the entire procedure.
[2017-04-12 18:20] LABS: INR 1.5
[2017-04-12 19:22] LABS: BUN/Creatinine Ratio 28 (6-26); Blood Urea Nitrogen 23 mg/dL (8-26); Calcium 9.6 mg/dL (8.6-10.8); Carbon Dioxide 34 mEq/L (19-29); Chloride 96 mEq/L (98-109); Glucose 155 mg/dL (70-99); Osmolality,Calculated 299 (280-300); Potassium 3.4 mEq/L (3.5-4.5); eGFR For African Americans > 60 (> 60); eGFR For Non-African Americans > 60 (> 60)
[2017-04-12 19:23] LABS: Sodium 141 mEq/L (136-145)
--- NOTE | 2017-04-12 19:41 | Electrocardiograph Report ---
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
[2017-04-13] MEDS ORDERED: Piperacillin/Tazobactam 3.375 GM in D5% in Water 50 ML IVPB SCH
[2017-04-13] MEDS: *HR* Heparin 5,000 UNIT/ML VIAL SQ SCH ×3 (00:59→17:55)
[2017-04-13] MEDS: Norepinephrine 4 MG in D5% in Water 250 ML IVC SCH ×4 (01:28→19:59)
[2017-04-13 03:47] LABS: Basophils % 0.3 %; Eosinophils # 0.1 K/mcL (0.0-0.6); Eosinophils % 1.6 %; Hematocrit 32.4 % (37.5-50.1); Hemoglobin 10.5 g/dL (12.9-16.9); Immature Granulocytes % 2.8 % (0-4); Immature Platelets 5.4 % (1.1-6.1); Lymphocytes # 0.5 K/mcL (0.6-4.6); Lymphocytes % 6.7 %; Mean Corpuscular HGB Conc 32.4 g/dL (31.6-35.5); Mean Corpuscular Hemoglobin 28.7 pg (28.0-33.3); Mean Corpuscular Volume 88.5 fL (83.0-100.0); Mean Platelet Volume 10.3 fL (9.4-12.4); Monocytes # 0.4 K/mcL (0.0-1.3); Monocytes % 6.3 %; Neutrophils # 5.5 K/mcL (1.6-8.9); Platelet Count 235 K/mcL (140-400); Red Blood Count 3.66 M/mcL (4.19-5.50); Red Cell Distribution Width 14.8 % (11.5-14.5); Segmented Neutrophils % 82.3 %
[2017-04-13] MEDS: Ipratropium/Albuterol Neb 3 ML IH SCH ×6 (03:48→23:04)
[2017-04-13 04:00] LABS: BUN/Creatinine Ratio 31 (6-26); Blood Urea Nitrogen 23 mg/dL (8-26); Calcium 9.1 mg/dL (8.6-10.8); Carbon Dioxide 36 mEq/L (19-29); Chloride 98 mEq/L (98-109); Glucose 189 mg/dL (70-99); Osmolality,Calculated 299 (280-300); Potassium 3.5 mEq/L (3.5-4.5); eGFR For African Americans > 60 (> 60); eGFR For Non-African Americans > 60 (> 60)
[2017-04-13 04:03] LABS: Albumin/Globulin Ratio 0.6 (1.1-2.2); Bilirubin,Indirect 0.9 mg/dL (0.0-1.2); Globulin 3.4 g/dL (2.4-3.5); Total Protein 5.4 g/dL (6.0-8.3)
[2017-04-13 04:08] LABS: Bilirubin,Total 2.9 mg/dL (0.2-1.2); Sodium 140 mEq/L (136-145)
[2017-04-13 04:11] LABS: Ionized Calcium 1.19 mmol/L (1.15-1.35)
[2017-04-13 04:52] LABS: ABG Base Excess 11 mEq/L (-2 to 3); ABG HCO3 38 mEq/L (21-27); ABG Oxygen Saturation 99 % (95-98); ABG PCO2 63 mmHg (35-45); ABG PH 7.39 pH Units (7.32-7.45); ABG PO2 130 mmHg (85-104); ABG TCO2 40 mEq/L (20-26); Blood Gas Modality PRVC; Blood Gas PEEP 8 cm H2O; Blood Gas Respiration Rate 16; Blood Gas VT 480 cc
[2017-04-13 05:11] LABS: Phosphorous 2.7 mg/dL (2.3-4.7)
[2017-04-13 05:12] LABS: Magnesium 1.9 mg/dL (1.6-2.6)
[2017-04-13] MEDS: Potassium Chloride 40 MEQ/200 ML BAG IVPB PRN ×2 (05:24→18:32)
[2017-04-13] MEDS: FentaNYL (PF) 3,000 MCG in 0.9 % Sodium Chloride 240 ML IVC SCH ×2 (05:45→23:34)
[2017-04-13] MEDS: Lacri-Lube 3.5 GM TUBE BOTH EYES SCH ×6 (06:34→23:34)
[2017-04-13] MEDS: *HR* Morphine 2 MG/ML SYRINGE IVP SCH ×2 (06:34→08:08)
[2017-04-13] MEDS: Pantoprazole 40 MG VIAL IVP SCH (08:09)
[2017-04-13] MEDS: Sennosides/Docusate Sodium TABLET PO SCH ×2 (08:09→20:10)
[2017-04-13] MEDS: cefTRIAXone 2,000 MG in Water for inj. (sterile) 20 ML IVP SCH (08:10)
[2017-04-13] MEDS: Chlorhexidine Rinse 15 ML MOUTHWASH MM SCH ×2 (08:11→20:09)
[2017-04-13] MEDS ORDERED: Furosemide 40 MG/4 ML VIAL IVP ONE (08:49)
--- NOTE | 2017-04-13 08:50 | Pulmonology Progress Note ---
<Wilfrid Stringer - Last Filed: 04/13/17 08:47> Date of Encounter: 04/13/17 Time of Encounter: 08:47 Assessment and Plan (1) Acute and chronic respiratory failure with hypoxia Current Visit: Yes Status: Acute Likely secondary to pneumonia. Unfortunately the patient was reintubated 2 days ago. He is currently on mechanical ventilation. Oxygen saturation is improved with mechanical ventilation, respiratory alkalosis has resolved from yesterday. Chest x-ray looks much improved. Continue when necessary diuresis to keep the patient net negative, will give Lasix 40 mg IV once today. (2) Pneumonia Current Visit: Yes Status: Acute Secondary to Streptococcus pneumoniae. Patient had decompensation of his respiratory status as discussed above and is now intubated again. Sensitivities show that his strep pneumo is sensitive to Rocephin. Continue Rocephin. Repeat cultures including blood cultures and sputum cultures pending. Qualifiers: Pneumonia type: due to unspecified organism Laterality: left Lung location: lower lobe of lung Qualified Code(s): J18.1 - Lobar pneumonia, unspecified organism (3) Septic shock Current Visit: Yes Status: Acute Secondary to strep pneumoniae pneumonia as discussed above. Patient continues to require norepinephrine for vasopressor support. Continue to titrate norepinephrine for map of 65. Lactate normal. Repeat cultures pending (4) CAD in [place] artery Current Visit: Yes Status: Acute No evidence of ACS. Troponins negative, no ischemic changes. Cardiology has evaluated the patient and recommended no further intervention. (5) Cardiomyopathy Current Visit: Yes Status: Chronic Echo shows normal EF with mild diastolic dysfunction. No evidence of acute cardiomyopathy. Continue diuresis as discussed above. Continue to monitor. Qualifiers: Cardiomyopathy type: unspecified Qualified Code(s): I42.9 - Cardiomyopathy , unspecified (6) Hypotensive episode Current Visit: Yes Status: Acute Patient became hypotensive during induction of anesthesia for his is elective procedure on Monday. Possibly related to medications however underlying infection could have contributed as well. Patient is currently hypotensive during his septic shock. He did not become acutely hypotensive during sedation for endotracheal intubation 2 days ago. (7) Biliary dyskinesia Current Visit: Yes Status: Chronic Patient was supposed to undergo elective cholecystectomy on Monday however this was aborted due to hypotensive episode during induction of anesthesia as discussed above. We will continue to delay surgery until the patient's clinical status has improved. Surgery is following. PEG tube placed yesterday (8) PAF (paroxysmal atrial fibrillation) Current Visit: Yes Status: Acute Patient is currently in paced rhythm. He is on chronic anticoagulation with Eliquis at home. Continue to hold given the patient's critical condition. Rate is controlled. Patient is on heparin for DVT prophylaxis Subjective Principal diagnosis: Hypotensive event Interval history: Patient seen and examined at bedside. Patient is currently intubated and sedated. Does not appear to be in any acute distress. He will follow commands and respond to verbal stimuli. Objective PUL Vital signs: Last Vital Signs Temp 97.9 F 04/13/17 07:55 Pulse 72 04/13/17 08:00 Resp 16 04/13/17 08:00 BP 111/52 04/13/17 08:00 Pulse Ox 100 04/13/17 08:00 General appearance: no acute distress ENT: oropharynx dry Effort: normal Auscultation: bilateral: rhonchi Cardiovascular: regular rate and rhythm Gastrointestinal: hypoactive bowel sounds, soft, non-tender, other (G-tube in place) Extremities: no cyanosis, no edema, no clubbing Ventilator Settings Ventilator Settings: Ventilator Settings, Last 8 Hours Ventilator Mode VC+ Ventilator Mode VC+ Ventilator Mode VC+ Ventilator Mode VC+ Ventilator Mode VC+ Ventilator Mode VC+ Ventilator Mode VC+ Ventilator Mode VC+ Ventilator Mode VC+ Ventilator Mode VC+ Ventilator Mode VC+ Ventilator Mode VC+ Ventilator Tidal Volume 480 Setting Ventilator Tidal Volume 480 Setting Ventilator Tidal Volume 480 Setting Ventilator Tidal Volume 480 Setting Ventilator Tidal Volume 480 Setting Ventilator Tidal Volume 480 Setting Ventilator Tidal Volume 480 Setting Ventilator Tidal Volume 480 Setting Ventilator Tidal Volume 480 Setting Ventilator Tidal Volume 480 Setting Ventilator Tidal Volume 480 Setting Ventilator Tidal Volume 480 Setting Ventilator Respiratory Rate 16 Setting Ventilator Respiratory Rate 16 Setting Ventilator Respiratory Rate 16 Setting Ventilator Respiratory Rate 16 Setting Ventilator Respiratory Rate 16 Setting Ventilator Respiratory Rate 16 Setting Ventilator Respiratory Rate 16 Setting Ventilator Respiratory Rate 16 Setting Ventilator Respiratory Rate 16 Setting Ventilator Respiratory Rate 16 Setting Ventilator Respiratory Rate 16 Setting Ventilator Respiratory Rate 16 Setting Actual Respiratory Rate 16 Actual Respiratory Rate 16 Actual Respiratory Rate 16 Actual Respiratory Rate 16 Actual Respiratory Rate 16 Actual Respiratory Rate 16 Actual Respiratory Rate 16 Actual Respiratory Rate 16 Actual Respiratory Rate 16 Actual Respiratory Rate 16 Actual Respiratory Rate 16 Positive End Expiratory 7 Pressure Positive End Expiratory 7 Pressure Positive End Expiratory 7 Pressure Positive End Expiratory 8 Pressure Positive End Expiratory 8 Pressure Positive End Expiratory 8 Pressure Positive End Expiratory 8 Pressure Positive End Expiratory 8 Pressure Positive End Expiratory 8 Pressure Positive End Expiratory 8 Pressure Positive End Expiratory 8 Pressure Positive End Expiratory 8 Pressure Peak Inspiratory Airway 22 Pressure Peak Inspiratory Airway 26 Pressure Peak Inspiratory Airway 24 Pressure Peak Inspiratory Airway 22 Pressure Peak Inspiratory Airway 22 Pressure Peak Inspiratory Airway 22 Pressure Peak Inspiratory Airway 21 Pressure Peak Inspiratory Airway 21 Pressure Peak Inspiratory Airway 20 Pressure Peak Inspiratory Airway 20 Pressure Peak Inspiratory Airway 20 Pressure Results - Laboratory Findings CBC and BMP: 04/13/17 03:20 04/13/17 03:20 ABG ABG pH 7.39 pH Units (7.32-7.45) 04/13/17 04:48 ABG pCO2 63 mmHg (35-45) H 04/13/17 04:48 ABG pO2 130 mmHg (85-104) H 04/13/17 04:48 ABG O2 Saturation 99 % (95-98) H 04/13/17 04:48 PT/INR, D-dimer PT 16.0 Seconds (9.4-12.1) H 04/12/17 17:50 Abnormal lab findings: Abnormal lab results RBC 3.66 M/mcL (4.19-5.50) L 04/13/17 03:20 Hgb 10.5 g/dL (12.9-16.9) L 04/13/17 03:20 Hct 32.4 % (37.5-50.1) L 04/13/17 03:20 RDW 14.8 % (11.5-14.5) H 04/13/17 03:20 Band Neutrophils % 21.0 % (0-4) H 04/07/17 18:58 Metamyelocytes % 3.0 % (0) H 04/07/17 18:58 Lymphocytes # 0.5 K/mcL (0.6-4.6) L 04/13/17 03:20 Platelet Estimate Slight Decrease (Normal) L 04/09/17 03:10 Large Platelets Present (Not Present) A 04/08/17 04:05 PT 16.0 Seconds (9.4-12.1) H 04/12/17 17:50 ABG pCO2 63 mmHg (35-45) H 04/13/17 04:48 ABG pO2 130 mmHg (85-104) H 04/13/17 04:48 ABG HCO3 38 mEq/L (21-27) H 04/13/17 04:48 ABG Total CO2 40 mEq/L (20-26) H 04/13/17 04:48 ABG O2 Saturation 99 % (95-98) H 04/13/17 04:48 ABG Base Excess 11 mEq/L (-2 to 3) H 04/13/17 04:48 Carbon Dioxide 36 mEq/L (19-29) H 04/13/17 03:20 BUN/Creatinine Ratio 31 (6-26) H 04/13/17 03:20 Glucose 189 mg/dL (70-99) H 04/13/17 03:20 POC Glucose 156 (58-89) H 04/12/17 23:53 Total Bilirubin 2.9 mg/dL (0.2-1.2) H 04/13/17 03:20 Direct Bilirubin 2.0 mg/dL (0.0-0.5) H 04/13/17 03:20 Alkaline Phosphatase 144 Units/L (38-126) H 04/13/17 03:20 Troponin I 0.15 ng/mL (0-0.03) H* 04/13/17 03:25 Serum Total Protein 5.4 g/dL (6.0-8.3) L 04/13/17 03:20 Albumin 2.0 g/dL (3.5-5.0) L 04/13/17 03:20 Albumin/Globulin Ratio 0.6 (1.1-2.2) L 04/13/17 03:20 Prealbumin 14.0 mg/dL (18.0-45.0) L 04/11/17 06:33 - Microbiology Findings Microbiology Findings: Microbiology, Last 48 Hours 04/11/17 09:22 Blood Culture - Preliminary Peripheral Venipuncture No growth. 04/11/17 09:22 Blood Culture - Preliminary Peripheral Venipuncture No growth. 04/11/17 17:27 Sputum Culture - Preliminary Sputum 04/06/17 17:50 Blood Culture - Final Peripheral Venipuncture No growth. 04/06/17 17:50 Blood Culture - Final Peripheral Venipuncture No growth. - Clinical Findings Intake & Output: Intake & Output 04/12/17 04/13/17 04/13/17 23:59 07:59 15:59 Intake Total 1140.5 / 1140.5 546 / 546 Output Total 800 / 800 325 / 325 Balance 340.5 / 340.5 221 / 221 Weight 77.72 kg - VTE Documentation of Mechanical Device: Intermittent pneumatic compression device Consult Discharge Plan - Plan Referrals: Ellen Vora DO [Primary Care Provider] - <Leilani Castillo - Last Filed: 04/13/17 20:11> Date of Encounter: 04/13/17 Objective PUL Vital signs: Last Vital Signs Temp 98.5 F 04/13/17 15:00 Pulse 72 04/13/17 17:00 Resp 16 04/13/17 17:22 BP 128/62 04/13/17 17:22 Pulse Ox 98 04/13/17 17:22 Ventilator Settings Ventilator Settings: Ventilator Settings, Last 8 Hours Ventilator Mode VC+ Ventilator Mode VC+ Ventilator Mode VC+ Ventilator Mode VC+ Ventilator Mode VC+ Ventilator Mode VC+ Ventilator Mode VC+ Ventilator Mode VC+ Ventilator Mode VC+ Ventilator Mode VC+ Ventilator Mode VC+ Ventilator Tidal Volume 480 Setting Ventilator Tidal Volume 480 Setting Ventilator Tidal Volume 480 Setting Ventilator Tidal Volume 480 Setting Ventilator Tidal Volume 480 Setting Ventilator Tidal Volume 480 Setting Ventilator Tidal Volume 480 Setting Ventilator Tidal Volume 480 Setting Ventilator Tidal Volume 480 Setting Ventilator Tidal Volume 480 Setting Ventilator Tidal Volume 480 Setting Ventilator Respiratory Rate 16 Setting Ventilator Respiratory Rate 16 Setting Ventilator Respiratory Rate 16 Setting Ventilator Respiratory Rate 16 Setting Ventilator Respiratory Rate 16 Setting Ventilator Respiratory Rate 16 Setting Ventilator Respiratory Rate 16 Setting Ventilator Respiratory Rate 16 Setting Ventilator Respiratory Rate 16 Setting Ventilator Respiratory Rate 16 Setting Ventilator Respiratory Rate 16 Setting Actual Respiratory Rate 16 Actual Respiratory Rate 16 Actual Respiratory Rate 16 Actual Respiratory Rate 16 Actual Respiratory Rate 16 Actual Respiratory Rate 16 Actual Respiratory Rate 16 Actual Respiratory Rate 16 Actual Respiratory Rate 16 Actual Respiratory Rate 16 Actual Respiratory Rate 16 Positive End Expiratory 8 Pressure Positive End Expiratory 8 Pressure Positive End Expiratory 8 Pressure Positive End Expiratory 8 Pressure Positive End Expiratory 7 Pressure Positive End Expiratory 7 Pressure Positive End Expiratory 6.5 Pressure Positive End Expiratory 7 Pressure Positive End Expiratory 7 Pressure Positive End Expiratory 7 Pressure Positive End Expiratory 7 Pressure Peak Inspiratory Airway 22 Pressure Peak Inspiratory Airway 22 Pressure Peak Inspiratory Airway 18 Pressure Peak Inspiratory Airway 23 Pressure Peak Inspiratory Airway 21 Pressure Peak Inspiratory Airway 22 Pressure Peak Inspiratory Airway 22 Pressure Peak Inspiratory Airway 23 Pressure Peak Inspiratory Airway 22 Pressure Peak Inspiratory Airway 22 Pressure Peak Inspiratory Airway 24 Pressure Results - Laboratory Findings CBC and BMP: 04/13/17 03:20 04/13/17 15:25 ABG ABG pH 7.39 pH Units (7.32-7.45) 04/13/17 04:48 ABG pCO2 63 mmHg (35-45) H 04/13/17 04:48 ABG pO2 130 mmHg (85-104) H 04/13/17 04:48 ABG O2 Saturation 99 % (95-98) H 04/13/17 04:48 PT/INR, D-dimer PT 16.0 Seconds (9.4-12.1) H 04/12/17 17:50 Abnormal lab findings: Abnormal lab results RBC 3.66 M/mcL (4.19-5.50) L 04/13/17 03:20 Hgb 10.5 g/dL (12.9-16.9) L 04/13/17 03:20 Hct 32.4 % (37.5-50.1) L 04/13/17 03:20 RDW 14.8 % (11.5-14.5) H 04/13/17 03:20 Band Neutrophils % 21.0 % (0-4) H 04/07/17 18:58 Metamyelocytes % 3.0 % (0) H 04/07/17 18:58 Lymphocytes # 0.5 K/mcL (0.6-4.6) L 04/13/17 03:20 Platelet Estimate Slight Decrease (Normal) L 04/09/17 03:10 Large Platelets Present (Not Present) A 04/08/17 04:05 PT 16.0 Seconds (9.4-12.1) H 04/12/17 17:50 ABG pCO2 63 mmHg (35-45) H 04/13/17 04:48 ABG pO2 130 mmHg (85-104) H 04/13/17 04:48 ABG HCO3 38 mEq/L (21-27) H 04/13/17 04:48 ABG Total CO2 40 mEq/L (20-26) H 04/13/17 04:48 ABG O2 Saturation 99 % (95-98) H 04/13/17 04:48 ABG Base Excess 11 mEq/L (-2 to 3) H 04/13/17 04:48 Carbon Dioxide 36 mEq/L (19-29) H 04/13/17 03:20 BUN/Creatinine Ratio 31 (6-26) H 04/13/17 03:20 Glucose 189 mg/dL (70-99) H 04/13/17 03:20 POC Glucose 156 (58-89) H 04/12/17 23:53 Total Bilirubin 2.9 mg/dL (0.2-1.2) H 04/13/17 03:20 Direct Bilirubin 2.0 mg/dL (0.0-0.5) H 04/13/17 03:20 Alkaline Phosphatase 144 Units/L (38-126) H 04/13/17 03:20 Troponin I 0.15 ng/mL (0-0.03) H* 04/13/17 03:25 Serum Total Protein 5.4 g/dL (6.0-8.3) L 04/13/17 03:20 Albumin 2.0 g/dL (3.5-5.0) L 04/13/17 03:20 Albumin/Globulin Ratio 0.6 (1.1-2.2) L 04/13/17 03:20 Prealbumin 14.0 mg/dL (18.0-45.0) L 04/11/17 06:33 - Microbiology Findings Microbiology Findings: Microbiology, Last 48 Hours 04/11/17 17:27 Sputum Culture - Preliminary Sputum Yeast Species 04/11/17 09:22 Blood Culture - Preliminary Peripheral Venipuncture No growth. 04/11/17 09:22 Blood Culture - Preliminary Peripheral Venipuncture No growth. 04/06/17 17:50 Blood Culture - Final Peripheral Venipuncture No growth. 04/06/17 17:50 Blood Culture - Final Peripheral Venipuncture No growth. - Clinical Findings Intake & Output: Intake & Output 04/13/17 04/13/17 04/13/17 07:59 15:59 23:59 Intake Total 796 / 796 1514 / 1514 Output Total 325 / 325 2900 / 2900 Balance 471 / 471 -1386 / -1386 Weight 77.72 kg - Attending Attestation I saw the patient with the resident agree with History and Physical exam findings. Labs and Radiology were reviewed Ventilator data were reviewed FOOT ORTHOPEDIST: Patient is intubated and sedated has on and off episode of agitation , FOOT ORTHOPEDIST failure due to underlying septic shock patient is on atypical antipsychotics , now off propofol and Precedex will continue fentanyl . He is less agitated today NECK : No JVD appreciated Pulmonary : Patient has hypoxic respiratory secondary streptococcal pneumonia with some fluid overload which is causing the V/Q mismatch will Keep PEEP 8 and will come down on the FIO2 .Fluid overload due to diastolic dysfunction complicates diuresis in the background of septic shoc Cardiac : On Vasopressor septic shock , patient has episodic hypotension which needs maximum vsaopressor support then after 5 minutes he comes back to his baseline can be due to vasovagal phenomenon due to vagotonic hypnotic , opioids and precedex which inhibits the central sympathetic outflow another likely possibility pacemaker failure to increase the Heart rate will consult cardiology for that . Having tough time bringing down the vasopressors ruled out any myocadial ischemia . Nutrition/GI: Patient is on tube feeds, PPI prophylaxis Renal : Labs and UOP reviewed Heme onc : No acute issues ID : Gabriel sensitive Streptococcus pneumonia will continue the current regimen of anitbiotics Musculo skeletal / skin issues No acute issues Disposition : Critical Code status: Full Code Family/POA: 2 Daughters I spent 40 minutes of Critical care time in making decisions to support vital organs and prevent further decline.
[2017-04-13] MEDS ORDERED: Dextrose Gel 15 GM PO PRN ×2 (11:41)
[2017-04-13] MEDS ORDERED: D5% in Water 1,000 ML IVC PRN (11:41)
[2017-04-13] MEDS ORDERED: *HR* Dextrose 50 % in Water (Syg) 50 ML SYRINGE IVP PRN (11:41)
[2017-04-13] MEDS: Insulin LISPRO 300 UNITS/3 ML VIAL SQ SCH ×3 (11:50→23:35)
[2017-04-13] MEDS: Dexmedetomidine HCl 400 MCG/100 ML MLS IVC SCH (11:52)
--- NOTE | 2017-04-13 12:08 | Operative Note ---
Date of procedure: 04/12/17 Pre-op diagnosis: Aspiration pneumonia and malnutrition Post-op diagnosis: same Procedure: Percutaneous endoscopic gastrostomy tube placement Anesthesia: local, IV sedation Surgeon: Saul Goodman Estimated blood loss (cc): 1 Condition: stable Disposition: ICU Procedure in Detail: After informed consent, the patient was identified in the ICU. The abdomen was prepped and draped. The subxiphoid skin was injected with 1% lidocaine times 2 mL's. Endoscope was introduced and oropharynx and the esophagus is intubated. A area on the anterior abdomen was palpated and I was able to see the inflection within the stomach. Therefore an incision was made 11 blade. A 16- gauge needle was placed through the skin across the abdominal wall and in the stomach. A guidewire was placed. It was grasped with a snare. Once it had been grasped the snare was brought out through the oropharynx. Endoscope was passed off the table. The PEG tube was connected to the guidewire. Pullback down through the esophagus and across the abdominal wall and secured at 3 cm. A bolstering clamp was placed on the PEG tube. A dressing was placed as well. The patient tolerated the procedure well.
--- NOTE | 2017-04-13 15:19 | General Surgery Progress Note ---
Date of Encounter: 04/13/17 Time of Encounter: 15:00 - Assessment and Plan (1) Pneumonia Current Visit: Yes Status: Acute IV antibiotic management per pulmonary/critical care- ceftriaxone Cultures- streptococcus pneumoniae Serial chest x-rays ventilator support and management per pulmonary/critical care- reintubated this morning Qualifiers: Pneumonia type: due to unspecified organism Laterality: left Lung location: lower lobe of lung Qualified Code(s): J18.1 - Lobar pneumonia, unspecified organism (2) Biliary dyskinesia Current Visit: Yes Status: Chronic Patient was scheduled for elective cholecystectomy 7 days ago and procedure was cancelled due to hypotensive episode on induction. Transferred to ICU and was found to have pneumonia which has required mechanical ventilation. Tube feeds via PEG tube which was placed yesterday per Dr. Goodman- continue rate at 30 mL's per hour until patient is able to have a bowel movement Supportive care Hold surgical intervention at this time due to continued hypotension and respiratory failure (3) Hypotensive episode Current Visit: Yes Status: Acute Patient continues to have 3-4 episodes of hypotension per day which requires pressor support Currently on norepinephrine at 10 mcg (4) Cardiomyopathy Current Visit: Yes Status: Chronic Echo shows current EF of 60-65% Qualifiers: Cardiomyopathy type: unspecified Qualified Code(s): I42.9 - Cardiomyopathy , unspecified (5) CAD in [place] artery Current Visit: Yes Status: Acute (6) ICD (implantable cardioverter-defibrillator) in place Current Visit: Yes Status: Chronic Interrogation ordered per cardiology (7) Acute respiratory failure with hypoxemia Current Visit: Yes Status: Acute Secondary to pneumonia IV antibiotic management per pulmonary/critical care- ceftriaxone Serial chest x-rays ventilator support and management per pulmonary/critical care- reintubated this morning (8) PAF (paroxysmal atrial fibrillation) Current Visit: Yes Status: Acute Rate controlled at this time- paced rhythm Eliquis on hold at this time (9) Severe protein-calorie malnutrition Current Visit: Yes Status: Acute Continue tube feeds via PEG tube Subjective Patient reports: afebrile, other (Patient is resting comfortably on ventilator support. Patient continues to have instability of blood pressure; Patient is currently on pressor support with norepinephrine at 10mcg; Tube feedings decreased to 30ml/hour due to patient not having a BM since admission; Patient did not tolerate decrease in PEEP today.) Objective Vital Signs - Last 8 Hours Temp Pulse Resp BP Pulse Ox 04/13/17 13:50 16 94/48 93 04/13/17 13:00 72 16 113/57 100 04/13/17 12:00 72 16 91/51 100 04/13/17 11:18 16 98/52 97 04/13/17 11:00 98.1 F 72 16 99/54 99 04/13/17 10:54 72 04/13/17 10:00 72 16 104/67 97 04/13/17 09:39 16 111/52 93 04/13/17 09:00 72 16 114/56 99 04/13/17 08:00 72 16 111/52 100 04/13/17 07:59 16 85/58 100 04/13/17 07:55 97.9 F Intake and Output 04/12/17 04/13/17 04/13/17 23:59 07:59 15:59 Intake Total 1140.5 / 1140.5 796 / 796 1514 / 1514 Output Total 800 / 800 325 / 325 1000 / 1000 Balance 340.5 / 340.5 471 / 471 514 / 514 Intake: IV Fluids 555.5 / 555.5 796 / 796 888 / 888 ALBURX 5% 12.5 gm In 250 ml @ 250 / 250 999 mls/hr IVC .Q16M [facility] Rx#: [id number] PRECEDEX Premix 400 mcg In 100 0 / 0 0 / 0 100 / 100 ml @ 0.2 MCG/KG/HR 3.98 mls/hr IVC .Q24H [facility] Rx#:[id number] FentaNYL (PF) 3,000 MCG In 0.9 167 / 167 % Sodium Chloride 240 ML @ 50 MCG/HR 5 mls/hr IVC CONT [facility] Rx #:[id number] Levophed 4 MG In Dextrose 5% 193.5 / 193.5 179 / 179 508 / 508 250 ML @ 0 MCG/MIN IVC CONT [facility] Rx#:[id number] Diprivan 1,000 mg In 100 ml @ 100 / 100 20 MCG/KG/MIN 9.732 mls/hr IVC .[id number] [facility] Rx#:[id number] Rocephin 2,000 MG In Water for 20 / 20 inj. (sterile) 20 ML @ 600 mls/ hr IVP Q24H [facility] Rx#:[id number] Magnesium Sulfate Premix 2gm/ 50 / 50 50mL 2 gm In 50 ml @ 50 mls/hr IVPB Q6H PRN Rx#:[id number] Potassium Chloride 20 mEq/100 400 / 400 mL 40 meq In 200 ml @ 100 mls/ hr IVPB Q1H PRN Rx#:[id number] Potassium Phosphate 44 MEQ In 0 260 / 260 .9 % Sodium Chloride 250 ML @ 40 mls/hr IVPB Q10H PRN Rx#: [id number] Tube Feeding 585 / 585 626 / 626 Output: Catheter 800 / 800 325 / 325 1000 / 1000 Other: Weight 77.72 kg Blood Glucose* 156 131 Patient Weight 04/13/17 23:59 Weight 77.72 kg - General physical appearance other (Patient resting on ventilator support) - ENT dry mucosa, atraumatic, normocephalic - Neck Neck exam: trachea midline - Respiratory other (Patient on ventilator support FiO2 of 50% and PEEP of 8) - Abdomen Abdomen: Present: bowel sounds present, soft, non tender (no grimace with palpation), wound (Peg tube secure with tube feedings at 30ml/hour (minimal residual); abdominal binder in place) - Genitourinary other (steinberg catheter to SD ) - Neurologic other (Unable to assess) - Musculoskeletal other (Unable to assess) - Psychiatric other (Unable to assess) - Labs 04/13/17 03:20 04/13/17 03:20 Diabetes panel 04/12/17 04/12/17 04/13/17 Range/Units 16:00 17:50 03:20 Sodium 141 140 (136-145) mEq/L Potassium 3.4 L 3.4 L 3.5 (3.5-4.5) mEq/L Chloride 96 L 98 (98-109) mEq/L Carbon Dioxide 34 H 36 H (19-29) mEq/L BUN 23 23 (8-26) mg/dL Creatinine 0.82 0.74 (0.72-1.25) mg/dL Glucose 155 H 189 H (70-99) mg/dL Calcium 9.6 9.1 (8.6-10.8) mg/dL AST (5-34) Units/L ALT (0-55) Units/L Alkaline Phosphatase (38-126) Units/L Albumin (3.5-5.0) g/dL 04/13/17 Range/Units 03:20 Sodium (136-145) mEq/L Potassium (3.5-4.5) mEq/L Chloride (98-109) mEq/L Carbon Dioxide (19-29) mEq/L BUN (8-26) mg/dL Creatinine (0.72-1.25) mg/dL Glucose (70-99) mg/dL Calcium (8.6-10.8) mg/dL AST 30 (5-34) Units/L ALT 47 (0-55) Units/L Alkaline Phosphatase 144 H (38-126) Units/L Albumin 2.0 L (3.5-5.0) g/dL Calcium panel 04/12/17 04/12/17 04/13/17 Range/Units 16:00 17:50 03:20 Calcium 9.6 9.1 (8.6-10.8) mg/dL Phosphorus 2.9 D (2.3-4.7) mg/dL Albumin (3.5-5.0) g/dL 04/13/17 04/13/17 Range/Units 03:20 03:20 Calcium (8.6-10.8) mg/dL Phosphorus 2.7 (2.3-4.7) mg/dL Albumin 2.0 L (3.5-5.0) g/dL Pituitary panel 04/12/17 04/12/17 04/13/17 Range/Units 16:00 17:50 03:20 Sodium 141 140 (136-145) mEq/L Potassium 3.4 L 3.4 L 3.5 (3.5-4.5) mEq/L Chloride 96 L 98 (98-109) mEq/L Carbon Dioxide 34 H 36 H (19-29) mEq/L BUN 23 23 (8-26) mg/dL Creatinine 0.82 0.74 (0.72-1.25) mg/dL Glucose 155 H 189 H (70-99) mg/dL Calcium 9.6 9.1 (8.6-10.8) mg/dL Adrenal panel 04/12/17 04/12/17 04/13/17 Range/Units 16:00 17:50 03:20 Sodium 141 140 (136-145) mEq/L Potassium 3.4 L 3.4 L 3.5 (3.5-4.5) mEq/L Chloride 96 L 98 (98-109) mEq/L Carbon Dioxide 34 H 36 H (19-29) mEq/L BUN 23 23 (8-26) mg/dL Creatinine 0.82 0.74 (0.72-1.25) mg/dL Glucose 155 H 189 H (70-99) mg/dL Calcium 9.6 9.1 (8.6-10.8) mg/dL Total Bilirubin (0.2-1.2) mg/dL AST (5-34) Units/L ALT (0-55) Units/L Alkaline Phosphatase (38-126) Units/L Albumin (3.5-5.0) g/dL 04/13/17 Range/Units 03:20 Sodium (136-145) mEq/L Potassium (3.5-4.5) mEq/L Chloride (98-109) mEq/L Carbon Dioxide (19-29) mEq/L BUN (8-26) mg/dL Creatinine (0.72-1.25) mg/dL Glucose (70-99) mg/dL Calcium (8.6-10.8) mg/dL Total Bilirubin 2.9 H (0.2-1.2) mg/dL AST 30 (5-34) Units/L ALT 47 (0-55) Units/L Alkaline Phosphatase 144 H (38-126) Units/L Albumin 2.0 L (3.5-5.0) g/dL - VTE Documentation of Mechanical Device: Intermittent pneumatic compression device Consult Discharge Plan - Plan Referrals: Ellen Vora DO [Primary Care Provider] - - Attending Attestation For this encounter, I have reviewed the PARTNER MARKETING INTERN or PA documentation, treatment plan, and medical decision making; and I have had face to face time with this patient.
[2017-04-13] MEDS ORDERED: Bisacodyl 10 MG RECTAL SUPPOSITORY RC ONE (15:30)
[2017-04-13 16:26] LABS: Magnesium 1.8 mg/dL (1.6-2.6); Phosphorous 3.3 mg/dL (2.3-4.7); Potassium 3.9 mEq/L (3.5-4.5)
[2017-04-13] MEDS: *HR* LORazepam 2 MG/ML VIAL IVP PRN (18:15)
--- NOTE | 2017-04-13 18:19 | Electrocardiograph Report ---
[place] [id number] Test Date: 2017-04-10 Pat Name: Mata Mariscal Department: 109 Room: [facility] Gender: M [employer] Project Leader: RODRIGUEZ : 1940 Requested By: Saul Goodman Order Number: [id number] Reading MD: Neha Davis Measurements Intervals [place] Rate: 74 P: -40 SD: 75 QRS: 267 QRSD: 96 T: 42 QT: 352 QTc: 379 Interpretive Statements Ventricular-paced rhythm Electronically Signed On 04-13-2017 18:17:36 EST by Neha Davis
[2017-04-14] MEDS: Norepinephrine 4 MG in D5% in Water 250 ML IVC SCH ×4 (00:36→23:41)
[2017-04-14] MEDS: *HR* Heparin 5,000 UNIT/ML VIAL SQ SCH ×4 (00:41→23:39)
[2017-04-14] MEDS: *HR* LORazepam 2 MG/ML VIAL IVP PRN ×2 (00:41→11:09)
[2017-04-14 01:19] LABS: Ionized Calcium 1.22 mmol/L (1.15-1.35)
[2017-04-14 01:26] LABS: Magnesium 2.2 mg/dL (1.6-2.6); Phosphorous 2.6 mg/dL (2.3-4.7); Potassium 4.7 mEq/L (3.5-4.5)
[2017-04-14] MEDS: Lacri-Lube 3.5 GM TUBE BOTH EYES SCH ×6 (04:00→23:40)
[2017-04-14] MEDS: Ipratropium/Albuterol Neb 3 ML IH SCH ×5 (04:20→20:30)
[2017-04-14 04:50] LABS: Basophils % 0.2 %; Eosinophils # 0.3 K/mcL (0.0-0.6); Eosinophils % 3.3 %; Hematocrit 34.7 % (37.5-50.1); Hemoglobin 11.2 g/dL (12.9-16.9); Immature Granulocytes % 2.5 % (0-4); Lymphocytes # 0.7 K/mcL (0.6-4.6); Lymphocytes % 6.8 %; Mean Corpuscular HGB Conc 32.3 g/dL (31.6-35.5); Mean Corpuscular Hemoglobin 28.6 pg (28.0-33.3); Mean Corpuscular Volume 88.7 fL (83.0-100.0); Mean Platelet Volume 9.5 fL (9.4-12.4); Monocytes # 0.6 K/mcL (0.0-1.3); Monocytes % 6.4 %; Neutrophils # 7.9 K/mcL (1.6-8.9); Platelet Count 288 K/mcL (140-400); Red Blood Count 3.91 M/mcL (4.19-5.50); Red Cell Distribution Width 14.9 % (11.5-14.5); Segmented Neutrophils % 80.8 %
[2017-04-14 05:02] LABS: ABG Base Excess 8 mEq/L (-2 to 3); ABG HCO3 34 mEq/L (21-27); ABG Oxygen Saturation 94 % (95-98); ABG PCO2 54 mmHg (35-45); ABG PH 7.41 pH Units (7.32-7.45); ABG PO2 72 mmHg (85-104); ABG TCO2 36 mEq/L (20-26); Blood Gas Modality PRVC; Blood Gas PEEP 8 cm H2O; Blood Gas Respiration Rate 16; Blood Gas VT 480 cc
[2017-04-14 05:09] LABS: Ionized Calcium 1.23 mmol/L (1.15-1.35)
[2017-04-14 05:20] LABS: Albumin/Globulin Ratio 0.5 (1.1-2.2); Bilirubin,Direct 1.9 mg/dL (0.0-0.5); Bilirubin,Indirect 1.2 mg/dL (0.0-1.2); Globulin 3.9 g/dL (2.4-3.5); Total Protein 5.9 g/dL (6.0-8.3)
[2017-04-14 05:21] LABS: Bilirubin,Total 3.1 mg/dL (0.2-1.2)
[2017-04-14 05:34] LABS: Magnesium 2.1 mg/dL (1.6-2.6); Phosphorous 2.3 mg/dL (2.3-4.7)
[2017-04-14 05:38] LABS: BUN/Creatinine Ratio 25 (6-26); Blood Urea Nitrogen 16 mg/dL (8-26); Calcium 9.4 mg/dL (8.6-10.8); Carbon Dioxide 31 mEq/L (19-29); Chloride 97 mEq/L (98-109); Glucose 118 mg/dL (70-99); Osmolality,Calculated 282 (280-300); Potassium 4.6 mEq/L (3.5-4.5); Sodium 135 mEq/L (136-145); eGFR For African Americans > 60 (> 60); eGFR For Non-African Americans > 60 (> 60)
[2017-04-14] MEDS: Insulin LISPRO 300 UNITS/3 ML VIAL SQ SCH ×4 (06:13→23:38)
[2017-04-14] MEDS: FentaNYL (PF) 3,000 MCG in 0.9 % Sodium Chloride 240 ML IVC SCH (07:18)
[2017-04-14] MEDS: Sennosides/Docusate Sodium TABLET PO SCH ×2 (07:54→19:51)
[2017-04-14] MEDS: cefTRIAXone 2,000 MG in Water for inj. (sterile) 20 ML IVP SCH (07:55)
[2017-04-14] MEDS: Pantoprazole 40 MG VIAL IVP SCH (07:55)
[2017-04-14] MEDS: Chlorhexidine Rinse 15 ML MOUTHWASH MM SCH ×2 (07:56→19:53)
[2017-04-14] MEDS ORDERED: Milk and Molasses Enema 200 ML RC ONE (10:11)
--- NOTE | 2017-04-14 10:16 | General Surgery Progress Note ---
Date of Encounter: 04/14/17 Time of Encounter: 09:45 - Assessment and Plan (1) Pneumonia Current Visit: Yes Status: Acute IV antibiotic management per pulmonary/critical care- ceftriaxone Cultures- streptococcus pneumoniae Serial chest x-rays ventilator support and management per pulmonary/critical care- reintubated this morning Qualifiers: Pneumonia type: due to unspecified organism Laterality: left Lung location: lower lobe of lung Qualified Code(s): J18.1 - Lobar pneumonia, unspecified organism (2) Biliary dyskinesia Current Visit: Yes Status: Chronic Patient was scheduled for elective cholecystectomy 7 days ago and procedure was cancelled due to hypotensive episode on induction. Transferred to ICU and was found to have pneumonia which has required mechanical ventilation. Tube feeds via PEG tube which was placed 04/12/[address] Goodman- tube feeds are on hold at this time due to hypotension and lack of bowel movements for greater than 1 week. Supportive care Hold surgical intervention at this time due to continued hypotension and respiratory failure We will transfer the patient's care to the critical care service Please call the surgical team with any further questions or concerns (3) Hypotensive episode Current Visit: Yes Status: Acute Patient continues to have 3-4 episodes of hypotension per day which requires pressor support Currently on norepinephrine at 8 mcg (4) Cardiomyopathy Current Visit: Yes Status: Chronic Echo shows current EF of 60-65% Qualifiers: Cardiomyopathy type: unspecified Qualified Code(s): I42.9 - Cardiomyopathy , unspecified (5) CAD in [place] artery Current Visit: Yes Status: Acute (6) ICD (implantable cardioverter-defibrillator) in place Current Visit: Yes Status: Chronic Interrogation ordered per cardiology (7) Acute respiratory failure with hypoxemia Current Visit: Yes Status: Acute Secondary to pneumonia IV antibiotic management per pulmonary/critical care- ceftriaxone Serial chest x-rays ventilator support and management per pulmonary/critical care (8) PAF (paroxysmal atrial fibrillation) Current Visit: Yes Status: Acute Rate controlled at this time- paced rhythm Eliquis on hold at this time (9) Severe protein-calorie malnutrition Current Visit: Yes Status: Acute Patient does have a PEG tube but tube feeds are on hold at this time due to hypotensive episode and lack of bowel movement for over 1 week Subjective Patient reports: fever (Tmax 100), other (Patient resting on ventilator support ; Patient is resting comfortably on ventilator support. Patient continues to have instability of blood pressure; Patient is currently on pressor support with norepinephrine at 8mcg; Dopamine started this morning; Tube feedings on hold due to hypotensive episode and patient not having a BM since admission) Objective Vital Signs - Last 8 Hours Temp Pulse Resp BP Pulse Ox 04/14/17 10:00 70 16 127/51 96 04/14/17 09:16 16 118/58 100 04/14/17 09:00 70 16 118/58 100 04/14/17 08:00 70 16 116/53 96 04/14/17 07:40 16 114/56 98 04/14/17 07:23 98.5 F 04/14/17 07:00 71 16 114/56 98 04/14/17 06:00 75 16 162/76 96 04/14/17 05:38 16 97 04/14/17 05:00 75 16 134/63 97 04/14/17 04:20 16 97 04/14/17 04:00 100.0 F H 74 16 128/59 97 04/14/17 03:14 76 04/14/17 03:12 74 16 133/60 97 Intake and Output 04/13/17 04/14/17 04/14/17 23:59 07:59 15:59 Intake Total 867 / 867 1019 / 1019 134 / 134 Output Total 750 / 750 650 / 650 Balance 117 / 117 369 / 369 134 / 134 Intake: IV Fluids 504 / 504 924 / 924 134 / 134 FentaNYL (PF) 3,000 MCG In 0.9 290 / 290 9 / 9 % Sodium Chloride 240 ML @ 50 MCG/HR 5 mls/hr IVC CONT KELVIN Rx #:[id number] Levophed 4 MG In Dextrose 5% 254 / 254 614 / 614 125 / 125 250 ML @ 0 MCG/MIN IVC CONT KELVIN Rx#:[id number] Rocephin 2,000 MG In Water for 20 / 20 inj. (sterile) 20 ML @ 600 mls/ hr IVP Q24H KELVIN Rx#:[id number] Magnesium Sulfate Premix 2gm/ 50 / 50 50mL 2 gm In 50 ml @ 50 mls/hr IVPB Q6H PRN Rx#:[id number] Potassium Chloride 20 mEq/100 200 / 200 mL 40 meq In 200 ml @ 100 mls/ hr IVPB Q1H PRN Rx#:[id number] Tube Feeding 363 / 363 95 / 95 Free Water 0 / 0 0 / 0 Output: Catheter 750 / 750 650 / 650 Other: # Bowel Movements 0 0 Weight 75.9 kg Blood Glucose* 137 - General physical appearance other (Patient resting on the ventilator support) - ENT dry mucosa, atraumatic, normocephalic - Respiratory other (Ventilator support FiO2 of 50% with PEEP of 8) - Cardiovascular Cardiovascular exam: Present: regular rhythm (currently paced rhythm with HR of 70) - Abdomen Abdomen: Present: bowel sounds present, soft, non tender (No grimace with palpation), wound (PEG tube is clamped at this time) - Genitourinary other (Smith catheter to straight drain) - Neurologic other (Unable to assess at this time) - Musculoskeletal other (Unable to assess at this time) - Psychiatric other (Unable to assess at this time) - Labs 04/14/17 04:30 04/14/17 04:30 Diabetes panel 04/13/17 04/14/17 04/14/17 Range/Units 15:25 01:05 04:30 Sodium 135 L (136-145) mEq/L Potassium 3.9 4.7 H 4.6 H (3.5-4.5) mEq/L Chloride 97 L (98-109) mEq/L Carbon Dioxide 31 H (19-29) mEq/L BUN 16 (8-26) mg/dL Creatinine 0.64 L (0.72-1.25) mg/dL Glucose 118 H (70-99) mg/dL Calcium 9.4 (8.6-10.8) mg/dL AST (5-34) Units/L ALT (0-55) Units/L Alkaline Phosphatase (38-126) Units/L Albumin (3.5-5.0) g/dL 04/14/17 Range/Units 04:30 Sodium (136-145) mEq/L Potassium (3.5-4.5) mEq/L Chloride (98-109) mEq/L Carbon Dioxide (19-29) mEq/L BUN (8-26) mg/dL Creatinine (0.72-1.25) mg/dL Glucose (70-99) mg/dL Calcium (8.6-10.8) mg/dL AST 33 (5-34) Units/L ALT 48 (0-55) Units/L Alkaline Phosphatase 149 H (38-126) Units/L Albumin 2.0 L (3.5-5.0) g/dL Calcium panel 04/13/17 04/14/17 04/14/17 Range/Units 15:25 01:05 04:30 Calcium 9.4 (8.6-10.8) mg/dL Phosphorus 3.3 2.6 (2.3-4.7) mg/dL Albumin (3.5-5.0) g/dL 04/14/17 04/14/17 04/14/17 Range/Units 04:30 04:30 09:40 Calcium (8.6-10.8) mg/dL Phosphorus 2.3 3.0 (2.3-4.7) mg/dL Albumin 2.0 L (3.5-5.0) g/dL Pituitary panel 04/13/17 04/14/17 04/14/17 Range/Units 15:25 01:05 04:30 Sodium 135 L (136-145) mEq/L Potassium 3.9 4.7 H 4.6 H (3.5-4.5) mEq/L Chloride 97 L (98-109) mEq/L Carbon Dioxide 31 H (19-29) mEq/L BUN 16 (8-26) mg/dL Creatinine 0.64 L (0.72-1.25) mg/dL Glucose 118 H (70-99) mg/dL Calcium 9.4 (8.6-10.8) mg/dL Adrenal panel 04/13/17 04/14/17 04/14/17 Range/Units 15:25 01:05 04:30 Sodium 135 L (136-145) mEq/L Potassium 3.9 4.7 H 4.6 H (3.5-4.5) mEq/L Chloride 97 L (98-109) mEq/L Carbon Dioxide 31 H (19-29) mEq/L BUN 16 (8-26) mg/dL Creatinine 0.64 L (0.72-1.25) mg/dL Glucose 118 H (70-99) mg/dL Calcium 9.4 (8.6-10.8) mg/dL Total Bilirubin (0.2-1.2) mg/dL AST (5-34) Units/L ALT (0-55) Units/L Alkaline Phosphatase (38-126) Units/L Albumin (3.5-5.0) g/dL 04/14/17 Range/Units 04:30 Sodium (136-145) mEq/L Potassium (3.5-4.5) mEq/L Chloride (98-109) mEq/L Carbon Dioxide (19-29) mEq/L BUN (8-26) mg/dL Creatinine (0.72-1.25) mg/dL Glucose (70-99) mg/dL Calcium (8.6-10.8) mg/dL Total Bilirubin 3.1 H (0.2-1.2) mg/dL AST 33 (5-34) Units/L ALT 48 (0-55) Units/L Alkaline Phosphatase 149 H (38-126) Units/L Albumin 2.0 L (3.5-5.0) g/dL - VTE Documentation of Mechanical Device: Intermittent pneumatic compression device Consult Discharge Plan - Plan Referrals: Ellen Vora DO [Primary Care Provider] - - Attending Attestation For this encounter, I have reviewed the [employer] or PA documentation, treatment plan, and medical decision making; and I have had face to face time with this patient.
[2017-04-14] MEDS ORDERED: Bisacodyl 10 MG RECTAL SUPPOSITORY RC ONE (10:25)
[2017-04-14] MEDS: Hydrocortisone Sodium Succ 100 MG/2 ML VIAL IVP SCH ×2 (11:44→19:52)
--- NOTE | 2017-04-14 13:07 | Pulmonology Progress Note ---
<Wilfrid Stringer - Last Filed: 04/14/17 13:24> Date of Encounter: 04/14/17 Time of Encounter: 13:01 Assessment and Plan (1) Hypotension Current Visit: Yes Status: Acute Patient has had extremely labile blood pressures despite vasopressor support. At this point it does not appear likely that this is related to septic shock, however the etiology is unclear. Concern for cardiogenic causes. Patient is currently paced and does not have a heart rate response to his hypotension. We discussed the patient's pacer interrogation with the package sorter who does not feel that this is a pacemaker malfunction and that the pacemaker is functioning normally. Patient likely has some sinoatrial node dysfunction so we will institute dopamine in an attempt to decrease the amount of levo fed and increase cardiac output. Qualifiers: Hypotension type: unspecified hypotension type Qualified Code(s): I95.9 - Hypotension, unspecified (2) Acute and chronic respiratory failure with hypoxia Current Visit: Yes Status: Acute Likely secondary to pneumonia. Unfortunately the patient was reintubated. He is currently on mechanical ventilation. Oxygen saturation is improved with mechanical ventilation, respiratory alkalosis has resolved from yesterday. Chest x-ray looks much improved. Hold further diuresis today due to labile blood pressures. (3) Pneumonia Current Visit: Yes Status: Acute Secondary to Streptococcus pneumoniae. Patient had decompensation of his respiratory status as discussed above and is now intubated again. Sensitivities show that his strep pneumo is sensitive to Rocephin. Continue Rocephin. Repeat cultures including blood cultures and sputum cultures show no growth to date. Qualifiers: Pneumonia type: due to group B Streptococcus Laterality: left Lung location: lower lobe of lung Qualified Code(s): J15.3 - Pneumonia due to streptococcus, group B (4) Septic shock Current Visit: Yes Status: Acute Secondary to strep pneumoniae pneumonia as discussed above. Patient continues to require norepinephrine for vasopressor support. Continue to titrate norepinephrine for map of 65. Lactate normal. Repeat cultures pending. (5) CAD in [place] artery Current Visit: Yes Status: Acute No evidence of ACS. Troponins negative, no ischemic changes. Cardiology has evaluated the patient and recommended no further intervention. (6) Cardiomyopathy Current Visit: Yes Status: Chronic Echo shows normal EF with mild diastolic dysfunction. No evidence of acute cardiomyopathy. Hold diuresis as discussed above. Continue to monitor. Qualifiers: Cardiomyopathy type: unspecified Qualified Code(s): I42.9 - Cardiomyopathy , unspecified (7) Hypotensive episode Current Visit: Yes Status: Acute Patient became hypotensive during induction of anesthesia for his is elective procedure on Monday. Possibly related to medications however underlying infection could have contributed as well. Patient is currently hypotensive during his septic shock. He did not become acutely hypotensive during sedation for endotracheal intubation 2 days ago. (8) Biliary dyskinesia Current Visit: Yes Status: Chronic Patient was supposed to undergo elective cholecystectomy on Monday however this was aborted due to hypotensive episode during induction of anesthesia as discussed above. We will continue to delay surgery until the patient's clinical status has improved. Surgery is following. PEG tube placed, continue enteral feedings (9) PAF (paroxysmal atrial fibrillation) Current Visit: Yes Status: Acute Patient is currently in paced rhythm. He is on chronic anticoagulation with Eliquis at home. Continue to hold given the patient's critical condition. Rate is controlled. Patient is on heparin for DVT prophylaxis Subjective Principal diagnosis: Hypotensive event Interval history: Patient seen and examined at bedside. Patient is currently intubated and sedated. Does not appear to be in any acute distress. He continues to have labile blood pressures and oxygen saturation. Objective PUL Vital signs: Last Vital Signs Temp 98.2 F 04/14/17 11:00 Pulse 76 04/14/17 12:00 Resp 16 04/14/17 12:00 BP 121/54 04/14/17 12:00 Pulse Ox 96 04/14/17 12:00 General appearance: no acute distress ENT: oropharynx moist Effort: normal Auscultation: bilateral: rhonchi (Improved) Cardiovascular: regular rate and rhythm Gastrointestinal: hypoactive bowel sounds, soft, non-tender, other Extremities: no cyanosis, no edema, no clubbing normal mental status, non-focal exam Ventilator Settings Ventilator Settings: Ventilator Settings, Last 8 Hours Ventilator Mode VC+ Ventilator Mode VC+ Ventilator Mode VC+ Ventilator Mode VC+ Ventilator Mode VC+ Ventilator Mode VC+ Ventilator Mode VC+ Ventilator Mode VC+ Ventilator Mode VC+ Ventilator Mode VC+ Ventilator Mode VC+ Ventilator Tidal Volume 480 Setting Ventilator Tidal Volume 480 Setting Ventilator Tidal Volume 480 Setting Ventilator Tidal Volume 480 Setting Ventilator Tidal Volume 480 Setting Ventilator Tidal Volume 480 Setting Ventilator Tidal Volume 480 Setting Ventilator Tidal Volume 480 Setting Ventilator Tidal Volume 480 Setting Ventilator Tidal Volume 480 Setting Ventilator Tidal Volume 480 Setting Ventilator Respiratory Rate 16 Setting Ventilator Respiratory Rate 16 Setting Ventilator Respiratory Rate 16 Setting Ventilator Respiratory Rate 16 Setting Ventilator Respiratory Rate 16 Setting Ventilator Respiratory Rate 16 Setting Ventilator Respiratory Rate 16 Setting Ventilator Respiratory Rate 16 Setting Ventilator Respiratory Rate 16 Setting Ventilator Respiratory Rate 16 Setting Ventilator Respiratory Rate 16 Setting Actual Respiratory Rate 16 Actual Respiratory Rate 16 Actual Respiratory Rate 16 Actual Respiratory Rate 16 Actual Respiratory Rate 16 Actual Respiratory Rate 16 Actual Respiratory Rate 16 Actual Respiratory Rate 16 Actual Respiratory Rate 16 Actual Respiratory Rate 16 Actual Respiratory Rate 16 Positive End Expiratory 8 Pressure Positive End Expiratory 8 Pressure Positive End Expiratory 8 Pressure Positive End Expiratory 8 Pressure Positive End Expiratory 8 Pressure Positive End Expiratory 8 Pressure Positive End Expiratory 8 Pressure Positive End Expiratory 8 Pressure Positive End Expiratory 8 Pressure Positive End Expiratory 8 Pressure Positive End Expiratory 8 Pressure Peak Inspiratory Airway 21 Pressure Peak Inspiratory Airway 24 Pressure Peak Inspiratory Airway 21 Pressure Peak Inspiratory Airway 23 Pressure Peak Inspiratory Airway 23 Pressure Peak Inspiratory Airway 23 Pressure Peak Inspiratory Airway 22 Pressure Peak Inspiratory Airway 25 Pressure Peak Inspiratory Airway 21 Pressure Peak Inspiratory Airway 23 Pressure Peak Inspiratory Airway 25 Pressure Results - Laboratory Findings CBC and BMP: 04/14/17 04:30 04/14/17 04:30 ABG ABG pH 7.41 pH Units (7.32-7.45) 04/14/17 04:57 ABG pCO2 54 mmHg (35-45) H 04/14/17 04:57 ABG pO2 72 mmHg (85-104) L 04/14/17 04:57 ABG O2 Saturation 94 % (95-98) L 04/14/17 04:57 PT/INR, D-dimer PT 16.0 Seconds (9.4-12.1) H 04/12/17 17:50 Abnormal lab findings: Abnormal lab results RBC 3.91 M/mcL (4.19-5.50) L 04/14/17 04:30 Hgb 11.2 g/dL (12.9-16.9) L 04/14/17 04:30 Hct 34.7 % (37.5-50.1) L 04/14/17 04:30 RDW 14.9 % (11.5-14.5) H 04/14/17 04:30 Band Neutrophils % 21.0 % (0-4) H 04/07/17 18:58 Metamyelocytes % 3.0 % (0) H 04/07/17 18:58 Platelet Estimate Slight Decrease (Normal) L 04/09/17 03:10 Large Platelets Present (Not Present) A 04/08/17 04:05 PT 16.0 Seconds (9.4-12.1) H 04/12/17 17:50 ABG pCO2 54 mmHg (35-45) H 04/14/17 04:57 ABG pO2 72 mmHg (85-104) L 04/14/17 04:57 ABG HCO3 34 mEq/L (21-27) H 04/14/17 04:57 ABG Total CO2 36 mEq/L (20-26) H 04/14/17 04:57 ABG O2 Saturation 94 % (95-98) L 04/14/17 04:57 ABG Base Excess 8 mEq/L (-2 to 3) H 04/14/17 04:57 Sodium 135 mEq/L (136-145) L 04/14/17 04:30 Potassium 4.6 mEq/L (3.5-4.5) H 04/14/17 04:30 Chloride 97 mEq/L (98-109) L 04/14/17 04:30 Carbon Dioxide 31 mEq/L (19-29) H 04/14/17 04:30 Creatinine 0.64 mg/dL (0.72-1.25) L 04/14/17 04:30 Glucose 118 mg/dL (70-99) H 04/14/17 04:30 POC Glucose 137 (58-89) H 04/13/17 23:28 Total Bilirubin 3.1 mg/dL (0.2-1.2) H 04/14/17 04:30 Direct Bilirubin 1.9 mg/dL (0.0-0.5) H 04/14/17 04:30 Alkaline Phosphatase 149 Units/L (38-126) H 04/14/17 04:30 Troponin I 0.15 ng/mL (0-0.03) H* 04/13/17 03:25 Serum Total Protein 5.9 g/dL (6.0-8.3) L 04/14/17 04:30 Albumin 2.0 g/dL (3.5-5.0) L 04/14/17 04:30 Globulin 3.9 g/dL (2.4-3.5) H 04/14/17 04:30 Albumin/Globulin Ratio 0.5 (1.1-2.2) L 04/14/17 04:30 Prealbumin 14.0 mg/dL (18.0-45.0) L 04/11/17 06:33 - Microbiology Findings Microbiology Findings: Microbiology, Last 48 Hours 04/12/17 17:53 Blood Culture - Preliminary Peripheral Venipuncture No growth. 04/12/17 17:53 Blood Culture - Preliminary Peripheral Venipuncture No growth. 04/11/17 17:27 Sputum Culture - Preliminary Sputum Yeast Species 04/11/17 09:22 Blood Culture - Preliminary Peripheral Venipuncture No growth. 04/11/17 09:22 Blood Culture - Preliminary Peripheral Venipuncture No growth. - Clinical Findings Intake & Output: Intake & Output 04/13/17 04/14/17 04/14/17 23:59 07:59 15:59 Intake Total 867 / 867 1019 / 1019 251 / 251 Output Total 750 / 750 650 / 650 1000 / 1000 Balance 117 / 117 369 / 369 -749 / -749 Weight 75.9 kg - VTE Documentation of Mechanical Device: Intermittent pneumatic compression device Consult Discharge Plan - Plan Referrals: Ellen Vora, [Primary Care Provider] - <Leilani Castillo - Last Filed: 04/14/17 19:36> Date of Encounter: 04/14/17 Objective PUL Vital signs: Last Vital Signs Temp 98.5 F 04/14/17 15:00 Pulse 87 04/14/17 18:00 Resp 16 04/14/17 18:00 BP 98/57 04/14/17 18:00 Pulse Ox 96 04/14/17 18:00 Ventilator Settings Ventilator Settings: Ventilator Settings, Last 8 Hours Ventilator Mode VC+ Ventilator Mode VC+ Ventilator Mode VC+ Ventilator Mode VC+ Ventilator Mode VC+ Ventilator Mode VC+ Ventilator Mode VC+ Ventilator Mode VC+ Ventilator Mode VC+ Ventilator Mode VC+ Ventilator Mode VC+ Ventilator Tidal Volume 480 Setting Ventilator Tidal Volume 480 Setting Ventilator Tidal Volume 480 Setting Ventilator Tidal Volume 480 Setting Ventilator Tidal Volume 480 Setting Ventilator Tidal Volume 480 Setting Ventilator Tidal Volume 480 Setting Ventilator Tidal Volume 480 Setting Ventilator Tidal Volume 480 Setting Ventilator Tidal Volume 480 Setting Ventilator Tidal Volume 480 Setting Ventilator Respiratory Rate 16 Setting Ventilator Respiratory Rate 16 Setting Ventilator Respiratory Rate 16 Setting Ventilator Respiratory Rate 16 Setting Ventilator Respiratory Rate 16 Setting Ventilator Respiratory Rate 16 Setting Ventilator Respiratory Rate 16 Setting Ventilator Respiratory Rate 16 Setting Ventilator Respiratory Rate 16 Setting Ventilator Respiratory Rate 16 Setting Ventilator Respiratory Rate 16 Setting Actual Respiratory Rate 16 Actual Respiratory Rate 16 Actual Respiratory Rate 16 Actual Respiratory Rate 16 Actual Respiratory Rate 16 Actual Respiratory Rate 16 Actual Respiratory Rate 16 Actual Respiratory Rate 16 Actual Respiratory Rate 16 Actual Respiratory Rate 16 Actual Respiratory Rate 16 Positive End Expiratory 8 Pressure Positive End Expiratory 8 Pressure Positive End Expiratory 8 Pressure Positive End Expiratory 8 Pressure Positive End Expiratory 8 Pressure Positive End Expiratory 8 Pressure Positive End Expiratory 8 Pressure Positive End Expiratory 8 Pressure Positive End Expiratory 8 Pressure Positive End Expiratory 8 Pressure Positive End Expiratory 8 Pressure Peak Inspiratory Airway 21 Pressure Peak Inspiratory Airway 23 Pressure Peak Inspiratory Airway 21 Pressure Peak Inspiratory Airway 22 Pressure Peak Inspiratory Airway 23 Pressure Peak Inspiratory Airway 24 Pressure Peak Inspiratory Airway 22 Pressure Peak Inspiratory Airway 23 Pressure Peak Inspiratory Airway 22 Pressure Peak Inspiratory Airway 21 Pressure Peak Inspiratory Airway 24 Pressure Results - Laboratory Findings CBC and BMP: 04/14/17 04:30 04/14/17 04:30 ABG ABG pH 7.41 pH Units (7.32-7.45) 04/14/17 04:57 ABG pCO2 54 mmHg (35-45) H 04/14/17 04:57 ABG pO2 72 mmHg (85-104) L 04/14/17 04:57 ABG O2 Saturation 94 % (95-98) L 04/14/17 04:57 PT/INR, D-dimer PT 16.0 Seconds (9.4-12.1) H 04/12/17 17:50 Abnormal lab findings: Abnormal lab results RBC 3.91 M/mcL (4.19-5.50) L 04/14/17 04:30 Hgb 11.2 g/dL (12.9-16.9) L 04/14/17 04:30 Hct 34.7 % (37.5-50.1) L 04/14/17 04:30 RDW 14.9 % (11.5-14.5) H 04/14/17 04:30 Band Neutrophils % 21.0 % (0-4) H 04/07/17 18:58 Metamyelocytes % 3.0 % (0) H 04/07/17 18:58 Platelet Estimate Slight Decrease (Normal) L 04/09/17 03:10 Large Platelets Present (Not Present) A 04/08/17 04:05 PT 16.0 Seconds (9.4-12.1) H 04/12/17 17:50 ABG pCO2 54 mmHg (35-45) H 04/14/17 04:57 ABG pO2 72 mmHg (85-104) L 04/14/17 04:57 ABG HCO3 34 mEq/L (21-27) H 04/14/17 04:57 ABG Total CO2 36 mEq/L (20-26) H 04/14/17 04:57 ABG O2 Saturation 94 % (95-98) L 04/14/17 04:57 ABG Base Excess 8 mEq/L (-2 to 3) H 04/14/17 04:57 Sodium 135 mEq/L (136-145) L 04/14/17 04:30 Potassium 4.6 mEq/L (3.5-4.5) H 04/14/17 04:30 Chloride 97 mEq/L (98-109) L 04/14/17 04:30 Carbon Dioxide 31 mEq/L (19-29) H 04/14/17 04:30 Creatinine 0.64 mg/dL (0.72-1.25) L 04/14/17 04:30 Glucose 118 mg/dL (70-99) H 04/14/17 04:30 POC Glucose 137 (58-89) H 04/13/17 23:28 Total Bilirubin 3.1 mg/dL (0.2-1.2) H 04/14/17 04:30 Direct Bilirubin 1.9 mg/dL (0.0-0.5) H 04/14/17 04:30 Alkaline Phosphatase 149 Units/L (38-126) H 04/14/17 04:30 Troponin I 0.15 ng/mL (0-0.03) H* 04/13/17 03:25 Serum Total Protein 5.9 g/dL (6.0-8.3) L 04/14/17 04:30 Albumin 2.0 g/dL (3.5-5.0) L 04/14/17 04:30 Globulin 3.9 g/dL (2.4-3.5) H 04/14/17 04:30 Albumin/Globulin Ratio 0.5 (1.1-2.2) L 04/14/17 04:30 Prealbumin 14.0 mg/dL (18.0-45.0) L 04/11/17 06:33 - Microbiology Findings Microbiology Findings: Microbiology, Last 48 Hours 04/12/17 17:53 Blood Culture - Preliminary Peripheral Venipuncture No growth. 04/12/17 17:53 Blood Culture - Preliminary Peripheral Venipuncture No growth. 04/11/17 17:27 Sputum Culture - Preliminary Sputum Yeast Species 04/11/17 09:22 Blood Culture - Preliminary Peripheral Venipuncture No growth. 04/11/17 09:22 Blood Culture - Preliminary Peripheral Venipuncture No growth. - Clinical Findings Intake & Output: Intake & Output 04/14/17 04/14/17 04/14/17 07:59 15:59 23:59 Intake Total 1019 / 1019 266 / 266 169 / 169 Output Total 650 / 650 1999 Balance 369 / 369 -1734 / -1734 169 / 169 - Attending Attestation I saw the patient with the resident agree with History and Physical exam findings. Labs and Radiology were reviewed Ventilator data were reviewed SHIFT SUPERINTENDENT CAUSTIC CRESYLATE: Patient is intubated and sedated has on and off episode of agitation , SHIFT SUPERINTENDENT CAUSTIC CRESYLATE failure due to underlying septic shock patient is on atypical antipsychotics , on fentanyl stopped propofol and precedex NECK : No JVD appreciated Pulmonary : Patient has hypoxic respiratory secondary streptococcal pneumonia with some fluid overload which is causing the V/Q mismatch will Keep PEEP 8 and will come down on the FIO2 .Fluid overload due to diastolic dysfunction complicates diuresis in the background of septic shock Cardiac : On Vasopressor septic shock , patient has episodic hypotension which needs maximum vasopressors episodically concern about pacemaker function as increasing vasopressors doesnt increase heart rate went personally spoke with Dr Medrano showed pacemaker interrogation report no pacemaker malfunction since Dopamine has much better effect on sinus node will add dopamine to levophed will try to liberate levophed first Nutrition/GI: Patient is on tube feeds, PPI prophylaxis Renal : Labs and UOP reviewed Heme onc : No acute issues ID : Gabriel sensitive Streptococcus pneumonia will continue the current regimen of anitbiotics Endo : Patient Random Cortisol is 4 will start on stress steroids Hydrocortisone 100 mg Q 8hr Musculo skeletal / skin issues No acute issues Disposition : Critical Code status: Full Code Family/POA: 2 Daughters Had a lengthy discussion with and Daughter Yazan sweet they are coming terms with 's illness. Spent 40 minutes of Critical Care time in making decisions to support vital organ function to prevent further deterioration.
--- NOTE | 2017-04-14 13:18 | Cardiology Progress Note ---
Date of Encounter: 04/14/17 Time of Encounter: 13:11 Assessment and Plan (1) Hypotensive episode Current Visit: Yes Status: Acute Remains unclear why this patient has hypotensive episodes. 04/14/17 - echo LVEF 60-65% w/ normal LV chamber size and function. All other recent cardiac testing shows indication for hypotensive episodes. Pace set at 70, interrogated on 04/06/17, device normal. 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 Presently on 2 vasopressors (dopamine and levophed.) (2) Acute respiratory failure with hypoxemia Current Visit: Yes Status: Acute per management of ICU Discussion w patient/family: The assessment and plan as outlined above was discussed with the patient and/or family members who expressed understanding and agreement. All questions were answered. Thank you for involving us in the care of your patient. Please call with any questions. Subjective Principal diagnosis: reconsult for Hypotensive event Interval history: Mr Mariscal is a 77 year old male who is sedated and intubated in the ICU for Acute respiratory Failure w/ Hypoxemia 2/2 PNA, afib, CAD in [place] artery, and pacer set at 70. Cardiology is being reconsulted due to episodic hypotension. Patient was reintubated on 04/11/17. Patient remains to have 3-4 episodes of hypotension a day, this started prior to reintubation and was the reason for the original consult. Last episode 10 am this morning, lasted for 30 minutes. Patient is currently on levophed and was restarted on dopamine. Objective Vital Signs, Last 4 Hours Temp Pulse Resp BP Pulse Ox 04/14/17 12:00 76 16 121/54 96 04/14/17 11:40 19 121/56 94 04/14/17 11:00 98.2 F 76 19 121/56 94 04/14/17 10:00 70 16 127/51 96 04/14/17 09:30 71 04/14/17 09:16 16 118/58 100 General: No Apparent Distress HEENT: Normocephaly Neck: No JVD, Normal carotid pulses Cardiac: Reg Rate and Rhythm, Normal S1 and S2, No Murmur Lungs: Other (mechanically ventilated) Neuro: Other (sedated and intubated) Abdomen: Soft, Non-Tender Skin: No rashes noted on visualized skin Musculoskeletal: No Chest Wall Tenderness Extremities: No Clubbing, No Cyanosis, No Edema, Normal Pulses Results 04/14/17 04:30 04/14/17 04:30 Lab Results 04/13/17 04/14/17 04/14/17 15:25 01:05 04:30 WBC Hgb Hct Plt Count Sodium 135 L Potassium 3.9 4.7 H 4.6 H Chloride 97 L Carbon Dioxide 31 H BUN 16 Creatinine 0.64 L Glucose 118 H Calcium 9.4 Magnesium 1.8 2.2 Total Bilirubin AST ALT Alkaline Phosphatase 04/14/17 04/14/17 04/14/17 04:30 04:30 04:30 WBC 9.8 Hgb 11.2 L Hct 34.7 L Plt Count 288 Sodium Potassium Chloride Carbon Dioxide BUN Creatinine Glucose Calcium Magnesium 2.1 Total Bilirubin 3.1 H AST 33 ALT 48 Alkaline Phosphatase 149 H - VTE Documentation of Mechanical Device: Intermittent pneumatic compression device Consult Discharge Plan - Plan Referrals: Ellen Vora DO [Primary Care Provider] -
[2017-04-15] MEDS: Ipratropium/Albuterol Neb 3 ML IH SCH ×7 (00:16→23:27)
[2017-04-15] MEDS: *HR* LORazepam 2 MG/ML VIAL IVP PRN (00:22)
[2017-04-15] MEDS: Hydrocortisone Sodium Succ 100 MG/2 ML VIAL IVP SCH ×3 (03:53→19:47)
[2017-04-15] MEDS: Lacri-Lube 3.5 GM TUBE BOTH EYES SCH ×6 (03:53→23:15)
[2017-04-15 04:07] LABS: Basophils % 0.2 %; Hematocrit 37.7 % (37.5-50.1); Hemoglobin 12.2 g/dL (12.9-16.9); Immature Granulocytes % 1.6 % (0-4); Lymphocytes # 0.3 K/mcL (0.6-4.6); Lymphocytes % 2.5 %; Mean Corpuscular HGB Conc 32.4 g/dL (31.6-35.5); Mean Corpuscular Hemoglobin 28.7 pg (28.0-33.3); Mean Corpuscular Volume 88.7 fL (83.0-100.0); Mean Platelet Volume 9.3 fL (9.4-12.4); Monocytes # 0.2 K/mcL (0.0-1.3); Monocytes % 1.7 %; Neutrophils # 11.4 K/mcL (1.6-8.9); Platelet Count 325 K/mcL (140-400); Red Blood Count 4.25 M/mcL (4.19-5.50); Red Cell Distribution Width 14.5 % (11.5-14.5)
[2017-04-15 04:18] LABS: Phosphorous 2.9 mg/dL (2.3-4.7)
[2017-04-15 04:20] LABS: Alanine Aminotransferase 46 Units/L (0-55); Albumin 2.2 g/dL (3.5-5.0); Albumin/Globulin Ratio 0.5 (1.1-2.2); Alkaline Phosphatase 162 Units/L (38-126); Aspartate Amino Transferase 31 Units/L (5-34); Bilirubin,Direct 1.6 mg/dL (0.0-0.5); Bilirubin,Indirect 0.7 mg/dL (0.0-1.2); Bilirubin,Total 2.3 mg/dL (0.2-1.2); Globulin 4.3 g/dL (2.4-3.5); Total Protein 6.5 g/dL (6.0-8.3)
[2017-04-15 04:26] LABS: Ionized Calcium 1.22 mmol/L (1.15-1.35)
[2017-04-15 05:20] LABS: BUN/Creatinine Ratio 31 (6-26); Blood Urea Nitrogen 20 mg/dL (8-26); Calcium 10.2 mg/dL (8.6-10.8); Carbon Dioxide 26 mEq/L (19-29); Chloride 99 mEq/L (98-109); Glucose 184 mg/dL (70-99); Osmolality,Calculated 289 (280-300); Potassium 4.7 mEq/L (3.5-4.5); Sodium 136 mEq/L (136-145); eGFR For African Americans > 60 (> 60); eGFR For Non-African Americans > 60 (> 60)
[2017-04-15] MEDS: Insulin LISPRO 300 UNITS/3 ML VIAL SQ SCH ×4 (05:38→23:15)
[2017-04-15 06:09] LABS: ABG Base Excess 6 mEq/L (-2 to 3); ABG HCO3 33 mEq/L (21-27); ABG Oxygen Saturation 97 % (95-98); ABG PCO2 56 mmHg (35-45); ABG PH 7.38 pH Units (7.32-7.45); ABG PO2 90 mmHg (85-104); ABG TCO2 34 mEq/L (20-26); Blood Gas Modality ASSIST CONTROL; Blood Gas PEEP 8 cm H2O; Blood Gas Respiration Rate 16; Blood Gas VT 480 cc
--- NOTE | 2017-04-15 07:52 | Pulmonology Progress Note ---
<Edwina Paredes - Last Filed: 04/15/17 11:41> Date of Encounter: 04/15/17 Time of Encounter: 07:52 Assessment and Plan (1) Hypotension Current Visit: Yes Status: Acute Overnight and early AM demonstrating labile blood pressures, may be 2/2 to sinoatrial node dysfx Requires continued dopamine, with goal to liberate from levophed, as tolerated Qualifiers: Hypotension type: unspecified hypotension type Qualified Code(s): I95.9 - Hypotension, unspecified (2) Hypotensive episode Current Visit: Yes Status: Acute Initially transferred to ICU during induction of anesthesia for elective cholecystectomy (3) Acute and chronic respiratory failure with hypoxia Current Visit: Yes Status: Acute Likely 2/2 to pneumonia, and remains on mechanical ventilation. ABG reviewed this morning pH 7.38/pCO2 56/pO2 90/HCO3 33/97%. Vent settings reviewed. Tentatively Plan to evaluate for extubation tomorrow, if able to liberate patient off vasopressors (4) Cardiomyopathy Current Visit: Yes Status: Chronic EF LVEF 60-65%, with mild LV diastolic dysfunction. Atrial septal motion consistent with paced rhythm. Qualifiers: Cardiomyopathy type: unspecified Qualified Code(s): I42.9 - Cardiomyopathy , unspecified (5) CAD in [place] artery Current Visit: Yes Status: Chronic Date of CAD, PCI in 2007. Stress test in 2015 was negative for ischemia Cardiology on consult, appreciate recs. Not a candidate for further intervention at this time. (6) Biliary dyskinesia Current Visit: Yes Status: Chronic Planned for elective cholecystectomy initially, however given patient's decompensated status and current status, pt is currently a poor surgical candidate PEG tube in place, and will continue enteral feedings Remain on PPI Prophylaxis Surgery on consult (7) Pneumonia Current Visit: Yes Status: Acute Sputum culture positive for Strepococcos Pneumoniae, yeast. Continue Rocephin. Qualifiers: Pneumonia type: due to group B Streptococcus Laterality: left Lung location: lower lobe of lung Qualified Code(s): J15.3 - Pneumonia due to streptococcus, group B (8) Septic shock Current Visit: Yes Status: Acute Likely Secondary to strep pneumoniae pneumonia (9) Atrial fibrillation Current Visit: Yes Status: Acute Patient on paced rhythm. Cardiology on consult and reviewed interrogation, Pace set at 70, with indication device was normal. Cardiology does not recommend adjusting device, appreciate continued recs Qualifiers: Atrial fibrillation type: unspecified Qualified Code(s): I48.91 - Unspecified atrial fibrillation (10) Severe protein-calorie malnutrition Current Visit: Yes Status: Acute Continue cautious enteral feedings , with monitoring of electrolyte imbalance with timed BMPs. Electrolyte protocol orders in place. (11) Agitation Current Visit: Yes Status: Acute Exhibited agitation overnight and required 1 mg of ativan. Pt on Seroquel 25 mg PO BID. Patient on ativan PRN, recommend very cautious use and for severe agitation only. Continue fentanyl. (12) DVT prophylaxis Current Visit: Yes Status: Acute Heparin SubQ Subjective Principal diagnosis: Hypotensive event Interval history: Required ativan x 1 overnight 2/2 to agitation. Exhibiting episodic hypotension while on vasopressor support. Per RN, overnight SBP range from 60s to 200s, HR ranging from 70s to 110. Seen and examined at bedside approx 7 AM.. Was seen attempting to remove endotracheal tube this morning. Per day shift RN, patient resting well and BPs stabilized later since bedside exam early this AM. Objective PUL Vital signs: Last Vital Signs Temp 98.0 F 04/15/17 07:36 Pulse 72 04/15/17 05:51 Resp 16 04/15/17 06:00 BP 129/62 04/15/17 06:00 Pulse Ox 97 04/15/17 06:00 General appearance: other (following commands to squeeze hands, seen attempting to remove endotracheal tube at end of exam) Eyes: nonicteric ENT: other (endotracheal tube in place ) Auscultation: bilateral: diminished breath sounds Cardiovascular: regular rate and rhythm Gastrointestinal: normoactive bowel sounds, soft, non-distended, other (no rebound tenderness, PEG tube in place) Extremities: no cyanosis Musculoskeletal: other (moving extremitites, shifting position with demonstrated strenght ) pupils equal and round Ventilator Settings Ventilator Settings: Ventilator Settings, Last 8 Hours Ventilator Mode VC+ Ventilator Mode VC+ Ventilator Mode VC+ Ventilator Mode VC+ Ventilator Mode VC+ Ventilator Mode VC+ Ventilator Mode VC+ Ventilator Mode VC+ Ventilator Mode VC+ Ventilator Mode VC+ Ventilator Tidal Volume 480 Setting Ventilator Tidal Volume 480 Setting Ventilator Tidal Volume 480 Setting Ventilator Tidal Volume 480 Setting Ventilator Tidal Volume 480 Setting Ventilator Tidal Volume 480 Setting Ventilator Tidal Volume 480 Setting Ventilator Tidal Volume 480 Setting Ventilator Tidal Volume 480 Setting Ventilator Tidal Volume 480 Setting Ventilator Respiratory Rate 16 Setting Ventilator Respiratory Rate 16 Setting Ventilator Respiratory Rate 16 Setting Ventilator Respiratory Rate 16 Setting Ventilator Respiratory Rate 16 Setting Ventilator Respiratory Rate 16 Setting Ventilator Respiratory Rate 16 Setting Ventilator Respiratory Rate 16 Setting Ventilator Respiratory Rate 16 Setting Ventilator Respiratory Rate 16 Setting Actual Respiratory Rate 16 Actual Respiratory Rate 16 Actual Respiratory Rate 19 Actual Respiratory Rate 19 Actual Respiratory Rate 16 Actual Respiratory Rate 16 Actual Respiratory Rate 16 Actual Respiratory Rate 19 Actual Respiratory Rate 24 Positive End Expiratory 8 Pressure Positive End Expiratory 8 Pressure Positive End Expiratory 8 Pressure Positive End Expiratory 8 Pressure Positive End Expiratory 8 Pressure Positive End Expiratory 8 Pressure Positive End Expiratory 8 Pressure Positive End Expiratory 8 Pressure Positive End Expiratory 8 Pressure Positive End Expiratory 8 Pressure Peak Inspiratory Airway 19 Pressure Peak Inspiratory Airway 21 Pressure Peak Inspiratory Airway 21 Pressure Peak Inspiratory Airway 21 Pressure Peak Inspiratory Airway 19 Pressure Peak Inspiratory Airway 19 Pressure Peak Inspiratory Airway 19 Pressure Peak Inspiratory Airway 20 Pressure Peak Inspiratory Airway 21 Pressure Results - Laboratory Findings CBC and BMP: 04/15/17 04:00 04/15/17 04:00 ABG ABG pH 7.38 pH Units (7.32-7.45) 04/15/17 06:05 ABG pCO2 56 mmHg (35-45) H 04/15/17 06:05 ABG pO2 90 mmHg (85-104) 04/15/17 06:05 ABG O2 Saturation 97 % (95-98) 04/15/17 06:05 PT/INR, D-dimer PT 16.0 Seconds (9.4-12.1) H 04/12/17 17:50 Abnormal lab findings: Abnormal lab results WBC 12.1 K/mcL (4.3-11.1) H 04/15/17 04:00 Hgb 12.2 g/dL (12.9-16.9) L 04/15/17 04:00 MPV 9.3 fL (9.4-12.4) L 04/15/17 04:00 Band Neutrophils % 21.0 % (0-4) H 04/07/17 18:58 Metamyelocytes % 3.0 % (0) H 04/07/17 18:58 Neutrophils # 11.4 K/mcL (1.6-8.9) H 04/15/17 04:00 Lymphocytes # 0.3 K/mcL (0.6-4.6) L 04/15/17 04:00 Platelet Estimate Slight Decrease (Normal) L 04/09/17 03:10 Large Platelets Present (Not Present) A 04/08/17 04:05 PT 16.0 Seconds (9.4-12.1) H 04/12/17 17:50 ABG pCO2 56 mmHg (35-45) H 04/15/17 06:05 ABG HCO3 33 mEq/L (21-27) H 04/15/17 06:05 ABG Total CO2 34 mEq/L (20-26) H 04/15/17 06:05 ABG Base Excess 6 mEq/L (-2 to 3) H 04/15/17 06:05 Potassium 4.7 mEq/L (3.5-4.5) H 04/15/17 04:00 Creatinine 0.64 mg/dL (0.72-1.25) L 04/15/17 04:00 BUN/Creatinine Ratio 31 (6-26) H 04/15/17 04:00 Glucose 184 mg/dL (70-99) H 04/15/17 04:00 POC Glucose 123 (58-89) H 04/14/17 23:28 Total Bilirubin 2.3 mg/dL (0.2-1.2) H 04/15/17 04:00 Direct Bilirubin 1.6 mg/dL (0.0-0.5) H 04/15/17 04:00 Alkaline Phosphatase 162 Units/L (38-126) H 04/15/17 04:00 Troponin I 0.15 ng/mL (0-0.03) H* 04/13/17 03:25 Albumin 2.2 g/dL (3.5-5.0) L 04/15/17 04:00 Globulin 4.3 g/dL (2.4-3.5) H 04/15/17 04:00 Albumin/Globulin Ratio 0.5 (1.1-2.2) L 04/15/17 04:00 Prealbumin 14.0 mg/dL (18.0-45.0) L 04/11/17 06:33 - Microbiology Findings Microbiology Findings: Microbiology, Last 48 Hours 04/11/17 17:27 Sputum Culture - Preliminary Sputum Yeast Species 04/12/17 17:53 Blood Culture - Preliminary Peripheral Venipuncture No growth. 04/12/17 17:53 Blood Culture - Preliminary Peripheral Venipuncture No growth. 04/11/17 09:22 Blood Culture - Preliminary Peripheral Venipuncture No growth. 04/11/17 09:22 Blood Culture - Preliminary Peripheral Venipuncture No growth. - Clinical Findings Intake & Output: Intake & Output 04/14/17 04/14/17 04/15/17 15:59 23:59 07:59 Intake Total 266 / 266 948 / 948 490 / 490 Output Total 1999 / 1999 450 / 450 700 / 700 Balance -1734 / -1734 498 / 498 -210 / -210 Weight 76.2 kg - VTE Documentation of Mechanical Device: Intermittent pneumatic compression device Consult Discharge Plan - Plan Referrals: Ellen Vora, DO [Primary Care Provider] - <Leilani Castillo - Last Filed: 04/15/17 23:29> Date of Encounter: 04/15/17 Objective PUL Vital signs: Last Vital Signs Temp 97.7 F 04/15/17 19:00 Pulse 75 04/15/17 23:03 Resp 16 04/15/17 23:03 BP 103/54 04/15/17 23:03 Pulse Ox 98 04/15/17 23:03 Ventilator Settings Ventilator Settings: Ventilator Settings, Last 8 Hours Ventilator Mode VC+ Ventilator Mode VC+ Ventilator Mode VC+ Ventilator Mode VC+ Ventilator Mode VC+ Ventilator Mode VC+ Ventilator Mode VC+ Ventilator Mode VC+ Ventilator Mode VC+ Ventilator Mode VC+ Ventilator Mode VC+ Ventilator Mode VC+ Ventilator Tidal Volume 480 Setting Ventilator Tidal Volume 480 Setting Ventilator Tidal Volume 480 Setting Ventilator Tidal Volume 480 Setting Ventilator Tidal Volume 480 Setting Ventilator Tidal Volume 480 Setting Ventilator Tidal Volume 480 Setting Ventilator Tidal Volume 480 Setting Ventilator Tidal Volume 480 Setting Ventilator Tidal Volume 480 Setting Ventilator Tidal Volume 480 Setting Ventilator Tidal Volume 480 Setting Ventilator Respiratory Rate 16 Setting Ventilator Respiratory Rate 16 Setting Ventilator Respiratory Rate 16 Setting Ventilator Respiratory Rate 16 Setting Ventilator Respiratory Rate 16 Setting Ventilator Respiratory Rate 16 Setting Ventilator Respiratory Rate 16 Setting Ventilator Respiratory Rate 16 Setting Ventilator Respiratory Rate 16 Setting Ventilator Respiratory Rate 16 Setting Ventilator Respiratory Rate 16 Setting Ventilator Respiratory Rate 16 Setting Actual Respiratory Rate 16 Actual Respiratory Rate 16 Actual Respiratory Rate 16 Actual Respiratory Rate 16 Actual Respiratory Rate 16 Actual Respiratory Rate 16 Actual Respiratory Rate 16 Actual Respiratory Rate 21 Actual Respiratory Rate 20 Actual Respiratory Rate 20 Actual Respiratory Rate 26 Actual Respiratory Rate 18 Positive End Expiratory 8 Pressure Positive End Expiratory 8 Pressure Positive End Expiratory 8 Pressure Positive End Expiratory 8 Pressure Positive End Expiratory 8 Pressure Positive End Expiratory 8 Pressure Positive End Expiratory 8 Pressure Positive End Expiratory 8 Pressure Positive End Expiratory 8 Pressure Positive End Expiratory 8 Pressure Positive End Expiratory 8 Pressure Positive End Expiratory 8 Pressure Peak Inspiratory Airway 21 Pressure Peak Inspiratory Airway 20 Pressure Peak Inspiratory Airway 21 Pressure Peak Inspiratory Airway 20 Pressure Peak Inspiratory Airway 19 Pressure Peak Inspiratory Airway 20 Pressure Peak Inspiratory Airway 19 Pressure Peak Inspiratory Airway 19 Pressure Peak Inspiratory Airway 14 Pressure Results - Laboratory Findings CBC and BMP: 04/15/17 04:00 04/15/17 04:00 ABG ABG pH 7.38 pH Units (7.32-7.45) 04/15/17 06:05 ABG pCO2 56 mmHg (35-45) H 04/15/17 06:05 ABG pO2 90 mmHg (85-104) 04/15/17 06:05 ABG O2 Saturation 97 % (95-98) 04/15/17 06:05 PT/INR, D-dimer PT 16.0 Seconds (9.4-12.1) H 04/12/17 17:50 Abnormal lab findings: Abnormal lab results WBC 12.1 K/mcL (4.3-11.1) H 04/15/17 04:00 Hgb 12.2 g/dL (12.9-16.9) L 04/15/17 04:00 MPV 9.3 fL (9.4-12.4) L 04/15/17 04:00 Band Neutrophils % 21.0 % (0-4) H 04/07/17 18:58 Metamyelocytes % 3.0 % (0) H 04/07/17 18:58 Neutrophils # 11.4 K/mcL (1.6-8.9) H 04/15/17 04:00 Lymphocytes # 0.3 K/mcL (0.6-4.6) L 04/15/17 04:00 Platelet Estimate Slight Decrease (Normal) L 04/09/17 03:10 Large Platelets Present (Not Present) A 04/08/17 04:05 PT 16.0 Seconds (9.4-12.1) H 04/12/17 17:50 ABG pCO2 56 mmHg (35-45) H 04/15/17 06:05 ABG HCO3 33 mEq/L (21-27) H 04/15/17 06:05 ABG Total CO2 34 mEq/L (20-26) H 04/15/17 06:05 ABG Base Excess 6 mEq/L (-2 to 3) H 04/15/17 06:05 Potassium 4.7 mEq/L (3.5-4.5) H 04/15/17 04:00 Creatinine 0.64 mg/dL (0.72-1.25) L 04/15/17 04:00 BUN/Creatinine Ratio 31 (6-26) H 04/15/17 04:00 Glucose 184 mg/dL (70-99) H 04/15/17 04:00 POC Glucose 123 (58-89) H 04/14/17 23:28 Total Bilirubin 2.3 mg/dL (0.2-1.2) H 04/15/17 04:00 Direct Bilirubin 1.6 mg/dL (0.0-0.5) H 04/15/17 04:00 Alkaline Phosphatase 162 Units/L (38-126) H 04/15/17 04:00 Troponin I 0.15 ng/mL (0-0.03) H* 04/13/17 03:25 Albumin 2.2 g/dL (3.5-5.0) L 04/15/17 04:00 Globulin 4.3 g/dL (2.4-3.5) H 04/15/17 04:00 Albumin/Globulin Ratio 0.5 (1.1-2.2) L 04/15/17 04:00 Prealbumin 14.0 mg/dL (18.0-45.0) L 04/11/17 06:33 - Microbiology Findings Microbiology Findings: Microbiology, Last 48 Hours 04/11/17 17:27 Sputum Culture - Preliminary Sputum Yeast Species 04/12/17 17:53 Blood Culture - Preliminary Peripheral Venipuncture No growth. 04/12/17 17:53 Blood Culture - Preliminary Peripheral Venipuncture No growth. - Clinical Findings Intake & Output: Intake & Output 04/15/17 04/15/17 04/15/17 07:59 15:59 23:59 Intake Total 490 / 490 898 / 898 804 / 804 Output Total 700 / 700 550 / 550 300 / 300 Balance -210 / -210 348 / 348 504 / 504 Weight 76.2 kg - Attending Attestation I saw the patient with the resident agree with History and Physical exam findings. Labs and Radiology were reviewed Ventilator data were reviewed DIRECTOR OF HEALTH EDUCATION: Patient is intubated and sedated has on and off episode of agitation , DIRECTOR OF HEALTH EDUCATION failure due to underlying septic shock patient is on atypical antipsychotics , on fentanyl stopped propofol and precedex ,patient today was more awake and following commands. NECK : No JVD appreciated Pulmonary : Patient has hypoxic respiratory secondary streptococcal pneumonia with some fluid overload which is causing the V/Q mismatch will Keep PEEP 8 and will come down on the FIO2 .Fluid overload due to diastolic dysfunction complicates diuresis in the background of septic shock will continue the current vent settings , once levophed is off will attempt SBT . Cardiac : On Vasopressor septic shock , patient has episodic hypotension which needs maximum vasopressors duration and intensity of these episodes have come down after started on Dopamime , requirement of Levophed comimg down Nutrition/GI: Patient is on tube feeds, PPI prophylaxis Renal : Labs and UOP reviewed Heme onc : No acute issues ID : Gabriel sensitive Streptococcus pneumonia will continue the current regimen of anitbiotics Endo : Patient Random Cortisol is 4 will start on stress steroids Hydrocortisone 100 mg Q 8hr Musculo skeletal / skin issues No acute issues Disposition : Critical Code status: Full Code Family/POA: 2 Daughters Had a discussion with Daughter Yazan sweet they are coming terms with 's illness. Spent 32 minutes of Critical care time in making decisions to support the function of vital organs and preventing further deterioration
[2017-04-15] MEDS: Sennosides/Docusate Sodium TABLET PO SCH ×2 (08:52→20:04)
[2017-04-15] MEDS: Pantoprazole 40 MG VIAL IVP SCH (08:52)
[2017-04-15] MEDS: Chlorhexidine Rinse 15 ML MOUTHWASH MM SCH ×2 (08:52→20:04)
[2017-04-15] MEDS: *HR* Heparin 5,000 UNIT/ML VIAL SQ SCH ×2 (08:52→18:09)
[2017-04-15] MEDS: cefTRIAXone 2,000 MG in Water for inj. (sterile) 20 ML IVP SCH (08:53)
[2017-04-15] MEDS: FentaNYL (PF) 3,000 MCG in 0.9 % Sodium Chloride 240 ML IVC SCH (09:35)
[2017-04-15] MEDS: Norepinephrine 4 MG in D5% in Water 250 ML IVC SCH (16:40)
[2017-04-16] MEDS: *HR* Heparin 5,000 UNIT/ML VIAL SQ SCH ×3 (00:04→17:08)
[2017-04-16] MEDS: Lacri-Lube 3.5 GM TUBE BOTH EYES SCH ×6 (02:03→23:46)
[2017-04-16] MEDS: Hydrocortisone Sodium Succ 100 MG/2 ML VIAL IVP SCH ×3 (03:06→20:16)
[2017-04-16] MEDS: FentaNYL (PF) 3,000 MCG in 0.9 % Sodium Chloride 240 ML IVC SCH (03:07)
[2017-04-16] MEDS: Ipratropium/Albuterol Neb 3 ML IH SCH ×5 (03:16→19:31)
[2017-04-16 03:27] LABS: Basophils % 0.2 %; Hematocrit 37.5 % (37.5-50.1); Hemoglobin 12.1 g/dL (12.9-16.9); Immature Granulocytes % 1.2 % (0-4); Lymphocytes # 0.5 K/mcL (0.6-4.6); Lymphocytes % 2.5 %; Mean Corpuscular HGB Conc 32.3 g/dL (31.6-35.5); Mean Corpuscular Hemoglobin 28.7 pg (28.0-33.3); Mean Corpuscular Volume 88.9 fL (83.0-100.0); Mean Platelet Volume 9.1 fL (9.4-12.4); Monocytes # 0.5 K/mcL (0.0-1.3); Monocytes % 2.7 %; Neutrophils # 17.8 K/mcL (1.6-8.9); Platelet Count 364 K/mcL (140-400); Red Blood Count 4.22 M/mcL (4.19-5.50); Red Cell Distribution Width 14.6 % (11.5-14.5); Segmented Neutrophils % 93.4 %
[2017-04-16 03:42] LABS: Magnesium 2.1 mg/dL (1.6-2.6); Phosphorous 2.8 mg/dL (2.3-4.7)
[2017-04-16 03:43] LABS: BUN/Creatinine Ratio 43 (6-26); Blood Urea Nitrogen 26 mg/dL (8-26); Calcium 9.9 mg/dL (8.6-10.8); Carbon Dioxide 31 mEq/L (19-29); Chloride 100 mEq/L (98-109); Glucose 119 mg/dL (70-99); Osmolality,Calculated 294 (280-300); Potassium 4.4 mEq/L (3.5-4.5); Sodium 139 mEq/L (136-145); eGFR For African Americans > 60 (> 60); eGFR For Non-African Americans > 60 (> 60)
[2017-04-16 03:50] LABS: Ionized Calcium 1.27 mmol/L (1.15-1.35)
[2017-04-16] MEDS: Insulin LISPRO 300 UNITS/3 ML VIAL SQ SCH ×4 (04:07→23:44)
[2017-04-16 04:11] LABS: ABG Base Excess 8 mEq/L (-2 to 3); ABG HCO3 35 mEq/L (21-27); ABG Oxygen Saturation 98 % (95-98); ABG PCO2 62 mmHg (35-45); ABG PH 7.36 pH Units (7.32-7.45); ABG PO2 104 mmHg (85-104); ABG TCO2 37 mEq/L (20-26); Blood Gas Modality VC; Blood Gas PEEP 8 cm H2O; Blood Gas Respiration Rate 16; Blood Gas VT 480 cc
[2017-04-16 04:13] LABS: Albumin 2.3 g/dL (3.5-5.0); Albumin/Globulin Ratio 0.5 (1.1-2.2); Bilirubin,Direct 1.1 mg/dL (0.0-0.5); Bilirubin,Indirect 0.5 mg/dL (0.0-1.2); Bilirubin,Total 1.6 mg/dL (0.2-1.2); Globulin 4.2 g/dL (2.4-3.5); Total Protein 6.5 g/dL (6.0-8.3)
--- NOTE | 2017-04-16 07:30 | Pulmonology Progress Note ---
<Edwina Paredes - Last Filed: 04/16/17 08:41> Date of Encounter: 04/16/17 Time of Encounter: 07:29 Assessment and Plan (1) Hypotension Current Visit: Yes Status: Acute Blood pressures stabilizing overnight, per RN and tolerated liberation from levophed. No hypotensive episode this AM. Qualifiers: Hypotension type: unspecified hypotension type Qualified Code(s): I95.9 - Hypotension, unspecified (2) Hypotensive episode Current Visit: Yes Status: Acute Initially transferred to ICU during induction of anesthesia for elective cholecystectomy (3) Acute and chronic respiratory failure with hypoxia Current Visit: Yes Status: Acute Pt self-extubated this morning while on b/l soft restraints. ABG reviewed prior to extubation and was planning for CPAP trial. Pt now on 24-hr BIPAP (4) Cardiomyopathy Current Visit: Yes Status: Chronic EF LVEF 60-65%, with mild LV diastolic dysfunction. Atrial septal motion consistent with paced rhythm. Discontinued dopamine. Qualifiers: Cardiomyopathy type: unspecified Qualified Code(s): I42.9 - Cardiomyopathy , unspecified (5) CAD in [place] Current Visit: Yes Status: Chronic Date of CAD, PCI in 2007. Stress test in 2016 was negative for ischemia Cardiology on consult, appreciate recs. Not a candidate for further intervention at this time. (6) Biliary dyskinesia Current Visit: Yes Status: Chronic Planned for elective cholecystectomy initially, however given patient's decompensated status and current status, pt is currently a poor surgical candidate PEG tube in place, and will continue enteral feedings. Will see if soft mittens are available, continue soft restraints if necessary, as pt seen attempting to remove PEG tube placement Remain on PPI Prophylaxis Surgery on consult (7) Pneumonia Current Visit: Yes Status: Acute Sputum culture positive for Strepococcos Pneumoniae, yeast. Continue Rocephin. Qualifiers: Pneumonia type: due to group B Streptococcus Laterality: left Lung location: lower lobe of lung Qualified Code(s): J15.3 - Pneumonia due to streptococcus, group B (8) Septic shock Current Visit: Yes Status: Acute Likely Secondary to strep pneumoniae pneumonia (9) Atrial fibrillation Current Visit: Yes Status: Acute Patient on paced rhythm. Cardiology on consult and reviewed interrogation, Pace set at 70, with indication device was normal. Cardiology does not recommend adjusting device, appreciate continued recs Qualifiers: Atrial fibrillation type: unspecified Qualified Code(s): I48.91 - Unspecified atrial fibrillation (10) Severe protein-calorie malnutrition Current Visit: Yes Status: Acute Continue cautious enteral feedings , with monitoring of electrolyte imbalance with timed BMPs. Electrolyte protocol orders in place. (11) Agitation Current Visit: Yes Status: Acute Pt on Seroquel 25 mg PO BID. Patient on ativan PRN, recommend very cautious use and for severe agitation only. (12) DVT prophylaxis Current Visit: Yes Status: Acute Heparin SubQ Subjective Principal diagnosis: Hypotensive event Interval history: Did not require ativan overnight. Seen and examined at bedside approx 7 AM. Pt self-extubated this morning while on self-restraints. ICU response with RNs and Dr. Castillo called, who was in ICU at time and came to beside, and Respiratory therapy notified immediately. Pt was alert, and was placed on BIPAP. Objective PUL Vital signs: Last Vital Signs Temp 98.4 F 04/16/17 03:00 Pulse 107 04/16/17 07:00 Resp 19 04/16/17 07:00 BP 142/77 04/16/17 07:00 Pulse Ox 98 04/16/17 07:00 General appearance: no acute distress, alert Eyes: nonicteric Neck: supple Effort: mildly labored, other (on BIPAP) Auscultation: bilateral: clear Cardiovascular: regular rate and rhythm Gastrointestinal: normoactive bowel sounds, soft, non-distended, other (PEG tube in place, no erythema, no oozing surrounding tube, was seen attempting to remove during extubation with transient removal of soft restraints ) Integumentary: normal pupils equal and round mood appropriate Ventilator Settings Ventilator Settings: Ventilator Settings, Last 8 Hours Prior to Extubation Ventilator Mode VC+ Ventilator Mode VC+ Ventilator Mode VC+ Ventilator Mode VC+ Ventilator Mode VC+ Ventilator Mode VC+ Ventilator Mode VC+ Ventilator Mode VC+ Ventilator Mode VC+ Ventilator Mode VC+ Ventilator Mode VC+ Ventilator Mode VC+ Ventilator Mode VC+ Ventilator Tidal Volume 480 Setting Ventilator Tidal Volume 480 Setting Ventilator Tidal Volume 480 Setting Ventilator Tidal Volume 480 Setting Ventilator Tidal Volume 480 Setting Ventilator Tidal Volume 480 Setting Ventilator Tidal Volume 480 Setting Ventilator Tidal Volume 480 Setting Ventilator Tidal Volume 480 Setting Ventilator Tidal Volume 480 Setting Ventilator Tidal Volume 480 Setting Ventilator Tidal Volume 480 Setting Ventilator Tidal Volume 480 Setting Ventilator Respiratory Rate 16 Setting Ventilator Respiratory Rate 16 Setting Ventilator Respiratory Rate 16 Setting Ventilator Respiratory Rate 16 Setting Ventilator Respiratory Rate 16 Setting Ventilator Respiratory Rate 16 Setting Ventilator Respiratory Rate 16 Setting Ventilator Respiratory Rate 16 Setting Ventilator Respiratory Rate 16 Setting Ventilator Respiratory Rate 16 Setting Ventilator Respiratory Rate 16 Setting Ventilator Respiratory Rate 16 Setting Ventilator Respiratory Rate 16 Setting Actual Respiratory Rate 19 Actual Respiratory Rate 16 Actual Respiratory Rate 17 Actual Respiratory Rate 20 Actual Respiratory Rate 16 Actual Respiratory Rate 16 Actual Respiratory Rate 16 Actual Respiratory Rate 16 Actual Respiratory Rate 16 Actual Respiratory Rate 16 Actual Respiratory Rate 16 Actual Respiratory Rate 16 Positive End Expiratory 8 Pressure Positive End Expiratory 8 Pressure Positive End Expiratory 8 Pressure Positive End Expiratory 8 Pressure Positive End Expiratory 8 Pressure Positive End Expiratory 8 Pressure Positive End Expiratory 8 Pressure Positive End Expiratory 8 Pressure Positive End Expiratory 8 Pressure Positive End Expiratory 8 Pressure Positive End Expiratory 8 Pressure Positive End Expiratory 8 Pressure Positive End Expiratory 8 Pressure Peak Inspiratory Airway 22 Pressure Peak Inspiratory Airway 22 Pressure Peak Inspiratory Airway 22 Pressure Peak Inspiratory Airway 22 Pressure Peak Inspiratory Airway 22 Pressure Peak Inspiratory Airway 23 Pressure Peak Inspiratory Airway 23 Pressure Peak Inspiratory Airway 23 Pressure Peak Inspiratory Airway 22 Pressure Peak Inspiratory Airway 22 Pressure Peak Inspiratory Airway 22 Pressure Results - Laboratory Findings CBC and BMP: 04/16/17 03:00 04/16/17 03:00 ABG ABG pH 7.36 pH Units (7.32-7.45) 04/16/17 04:06 ABG pCO2 62 mmHg (35-45) H 04/16/17 04:06 ABG pO2 104 mmHg (85-104) 04/16/17 04:06 ABG O2 Saturation 98 % (95-98) 04/16/17 04:06 PT/INR, D-dimer PT 16.0 Seconds (9.4-12.1) H 04/12/17 17:50 Abnormal lab findings: Abnormal lab results WBC 19.0 K/mcL (4.3-11.1) H D 04/16/17 03:00 Hgb 12.1 g/dL (12.9-16.9) L 04/16/17 03:00 RDW 14.6 % (11.5-14.5) H 04/16/17 03:00 MPV 9.1 fL (9.4-12.4) L 04/16/17 03:00 Band Neutrophils % 21.0 % (0-4) H 04/07/17 18:58 Metamyelocytes % 3.0 % (0) H 04/07/17 18:58 Neutrophils # 17.8 K/mcL (1.6-8.9) H 04/16/17 03:00 Lymphocytes # 0.5 K/mcL (0.6-4.6) L 04/16/17 03:00 Platelet Estimate Slight Decrease (Normal) L 04/09/17 03:10 Large Platelets Present (Not Present) A 04/08/17 04:05 PT 16.0 Seconds (9.4-12.1) H 04/12/17 17:50 ABG pCO2 62 mmHg (35-45) H 04/16/17 04:06 ABG HCO3 35 mEq/L (21-27) H 04/16/17 04:06 ABG Total CO2 37 mEq/L (20-26) H 04/16/17 04:06 ABG Base Excess 8 mEq/L (-2 to 3) H 04/16/17 04:06 Carbon Dioxide 31 mEq/L (19-29) H 04/16/17 03:00 Creatinine 0.60 mg/dL (0.72-1.25) L 04/16/17 03:00 BUN/Creatinine Ratio 43 (6-26) H 04/16/17 03:00 Glucose 119 mg/dL (70-99) H 04/16/17 03:00 POC Glucose 164 (58-89) H 04/15/17 23:13 Total Bilirubin 1.6 mg/dL (0.2-1.2) H 04/16/17 03:00 Direct Bilirubin 1.1 mg/dL (0.0-0.5) H 04/16/17 03:00 AST 48 Units/L (5-34) H 04/16/17 03:00 ALT 67 Units/L (0-55) H 04/16/17 03:00 Alkaline Phosphatase 164 Units/L (38-126) H 04/16/17 03:00 Troponin I 0.15 ng/mL (0-0.03) H* 04/13/17 03:25 Albumin 2.3 g/dL (3.5-5.0) L 04/16/17 03:00 Globulin 4.2 g/dL (2.4-3.5) H 04/16/17 03:00 Albumin/Globulin Ratio 0.5 (1.1-2.2) L 04/16/17 03:00 Prealbumin 14.0 mg/dL (18.0-45.0) L 04/11/17 06:33 - Microbiology Findings Microbiology Findings: Microbiology, Last 48 Hours 04/11/17 17:27 Sputum Culture - Final Sputum Bernice tropicalis 04/12/17 17:53 Blood Culture - Preliminary Peripheral Venipuncture No growth. 04/12/17 17:53 Blood Culture - Preliminary Peripheral Venipuncture No growth. - Clinical Findings Intake & Output: Intake & Output 04/15/17 04/15/17 04/16/17 15:59 23:59 07:59 Intake Total 918 / 918 944 / 944 592 / 592 Output Total 550 / 550 550 / 550 300 / 300 Balance 368 / 368 394 / 394 292 / 292 - VTE Documentation of Mechanical Device: Intermittent pneumatic compression device Consult Discharge Plan - Plan Referrals: Ellen Vora, [Primary Care Provider] - <Leilani Castillo - Last Filed: 04/16/17 11:47> Date of Encounter: 04/16/17 Objective PUL Vital signs: Last Vital Signs Temp 97.4 F L 04/16/17 08:08 Pulse 109 04/16/17 09:00 Resp 20 04/16/17 09:00 BP 113/58 04/16/17 09:00 Pulse Ox 96 04/16/17 09:00 Ventilator Settings Ventilator Settings: Ventilator Settings, Last 8 Hours Ventilator Mode VC+ Ventilator Mode VC+ Ventilator Mode VC+ Ventilator Mode VC+ Ventilator Mode VC+ Ventilator Mode VC+ Ventilator Mode VC+ Ventilator Mode VC+ Ventilator Tidal Volume 480 Setting Ventilator Tidal Volume 480 Setting Ventilator Tidal Volume 480 Setting Ventilator Tidal Volume 480 Setting Ventilator Tidal Volume 480 Setting Ventilator Tidal Volume 480 Setting Ventilator Tidal Volume 480 Setting Ventilator Tidal Volume 480 Setting Ventilator Respiratory Rate 16 Setting Ventilator Respiratory Rate 16 Setting Ventilator Respiratory Rate 16 Setting Ventilator Respiratory Rate 16 Setting Ventilator Respiratory Rate 16 Setting Ventilator Respiratory Rate 16 Setting Ventilator Respiratory Rate 16 Setting Ventilator Respiratory Rate 16 Setting Actual Respiratory Rate 19 Actual Respiratory Rate 16 Actual Respiratory Rate 17 Actual Respiratory Rate 20 Actual Respiratory Rate 16 Actual Respiratory Rate 16 Actual Respiratory Rate 16 Positive End Expiratory 8 Pressure Positive End Expiratory 8 Pressure Positive End Expiratory 8 Pressure Positive End Expiratory 8 Pressure Positive End Expiratory 8 Pressure Positive End Expiratory 8 Pressure Positive End Expiratory 8 Pressure Positive End Expiratory 8 Pressure Peak Inspiratory Airway 22 Pressure Peak Inspiratory Airway 22 Pressure Peak Inspiratory Airway 22 Pressure Peak Inspiratory Airway 22 Pressure Peak Inspiratory Airway 22 Pressure Peak Inspiratory Airway 23 Pressure Results - Laboratory Findings CBC and BMP: 04/16/17 03:00 04/16/17 03:00 ABG ABG pH 7.36 pH Units (7.32-7.45) 04/16/17 04:06 ABG pCO2 62 mmHg (35-45) H 04/16/17 04:06 ABG pO2 104 mmHg (85-104) 04/16/17 04:06 ABG O2 Saturation 98 % (95-98) 04/16/17 04:06 PT/INR, D-dimer PT 16.0 Seconds (9.4-12.1) H 04/12/17 17:50 Abnormal lab findings: Abnormal lab results WBC 19.0 K/mcL (4.3-11.1) H D 04/16/17 03:00 Hgb 12.1 g/dL (12.9-16.9) L 04/16/17 03:00 RDW 14.6 % (11.5-14.5) H 04/16/17 03:00 MPV 9.1 fL (9.4-12.4) L 04/16/17 03:00 Band Neutrophils % 21.0 % (0-4) H 04/07/17 18:58 Metamyelocytes % 3.0 % (0) H 04/07/17 18:58 Neutrophils # 17.8 K/mcL (1.6-8.9) H 04/16/17 03:00 Lymphocytes # 0.5 K/mcL (0.6-4.6) L 04/16/17 03:00 Platelet Estimate Slight Decrease (Normal) L 04/09/17 03:10 Large Platelets Present (Not Present) A 04/08/17 04:05 PT 16.0 Seconds (9.4-12.1) H 04/12/17 17:50 ABG pCO2 62 mmHg (35-45) H 04/16/17 04:06 ABG HCO3 35 mEq/L (21-27) H 04/16/17 04:06 ABG Total CO2 37 mEq/L (20-26) H 04/16/17 04:06 ABG Base Excess 8 mEq/L (-2 to 3) H 04/16/17 04:06 Carbon Dioxide 31 mEq/L (19-29) H 04/16/17 03:00 Creatinine 0.60 mg/dL (0.72-1.25) L 04/16/17 03:00 BUN/Creatinine Ratio 43 (6-26) H 04/16/17 03:00 Glucose 119 mg/dL (70-99) H 04/16/17 03:00 POC Glucose 164 (58-89) H 04/15/17 23:13 Total Bilirubin 1.6 mg/dL (0.2-1.2) H 04/16/17 03:00 Direct Bilirubin 1.1 mg/dL (0.0-0.5) H 04/16/17 03:00 AST 48 Units/L (5-34) H 04/16/17 03:00 ALT 67 Units/L (0-55) H 04/16/17 03:00 Alkaline Phosphatase 164 Units/L (38-126) H 04/16/17 03:00 Troponin I 0.15 ng/mL (0-0.03) H* 04/13/17 03:25 Albumin 2.3 g/dL (3.5-5.0) L 04/16/17 03:00 Globulin 4.2 g/dL (2.4-3.5) H 04/16/17 03:00 Albumin/Globulin Ratio 0.5 (1.1-2.2) L 04/16/17 03:00 Prealbumin 14.0 mg/dL (18.0-45.0) L 04/11/17 06:33 - Microbiology Findings Microbiology Findings: Microbiology, Last 48 Hours 04/11/17 17:27 Sputum Culture - Final Sputum Bernice tropicalis 04/12/17 17:53 Blood Culture - Preliminary Peripheral Venipuncture No growth. 04/12/17 17:53 Blood Culture - Preliminary Peripheral Venipuncture No growth. - Clinical Findings Intake & Output: Intake & Output 04/15/17 04/16/17 04/16/17 23:59 07:59 15:59 Intake Total 944 / 944 799 / 799 100 / 100 Output Total 550 / 550 300 / 300 300 / 300 Balance 394 / 394 499 / 499 -200 / -200 - Attending Attestation I saw the patient with the resident agree with History and Physical exam findings. Labs and Radiology were reviewed Ventilator data were reviewed [employer]IV[employer]ITY PRESIDENT: Patient self extubated today , patient has some episodic agitation otherwise he is oriented x 3 NECK : No JVD appreciated Pulmonary : Patient has hypoxic respiratory secondary streptococcal pneumonia with some fluid overload which is causing the V/Q mismatch , patient self extubated today immediately patient was not in any respiratory distress was talking felt intubation is not necessary bridge him to non invasive ventilatory support BIPAP 12/6 patient is getting TV around 500 ml -600 ml during the night might need precedex will change him to AVAPS for guranteed TV during the night . Cardiac : Patient is off Vasopressors will continue monitor his hemodynamics off vasopressors Nutrition/GI: Will Hold off tube feeds. To continue PPI Renal : Labs and UOP reviewed Heme onc : No acute issues ID : Gabriel sensitive Streptococcus pneumonia will continue the current regimen of anitbiotics Endo : Patient Random Cortisol is 4 will start on stress steroids Hydrocortisone 100 mg Q 8hr Musculo skeletal / skin issues No acute issues Disposition : Critical Code status: Full Code Family/POA: 2 Daughters Had a discussion with Daughter Yazan sweet they are coming terms with 's illness. Spent 35 minutes of Critical Care in making decision to support vital organ function and to prevent further decline of vital organ function.
[2017-04-16] MEDS: Pantoprazole 40 MG VIAL IVP SCH (08:04)
[2017-04-16] MEDS: cefTRIAXone 2,000 MG in Water for inj. (sterile) 20 ML IVP SCH (08:04)
[2017-04-16] MEDS: Chlorhexidine Rinse 15 ML MOUTHWASH MM SCH ×2 (08:05→20:03)
[2017-04-16] MEDS: Sennosides/Docusate Sodium TABLET PO SCH ×2 (08:05→20:16)
[2017-04-16] MEDS ORDERED: Haloperidol Lactate 5 MG/ML VIAL IVP ONE (09:55)
[2017-04-16] MEDS ORDERED: Haloperidol Lactate 5 MG/ML VIAL ONE (09:56)
[2017-04-16 11:42] LABS: ABG Base Excess 7 mEq/L (-2 to 3); ABG HCO3 32 mEq/L (21-27); ABG Oxygen Saturation 100 % (95-98); ABG PCO2 43 mmHg (35-45); ABG PH 7.48 pH Units (7.32-7.45); ABG PO2 163 mmHg (85-104); ABG TCO2 33 mEq/L (20-26); Blood Gas Modality BiLevel
[2017-04-16] MEDS: Dexmedetomidine HCl 400 MCG/100 ML MLS IVC SCH ×2 (15:04→23:14)
[2017-04-16] MEDS: *HR* LORazepam 2 MG/ML VIAL IVP PRN (23:14)
[2017-04-17] MEDS: Ipratropium/Albuterol Neb 3 ML IH SCH ×7 (00:08→23:56)
[2017-04-17] MEDS: *HR* Heparin 5,000 UNIT/ML VIAL SQ SCH ×3 (01:29→17:50)
[2017-04-17] MEDS: Dexmedetomidine HCl 400 MCG/100 ML MLS IVC SCH ×4 (02:52→22:30)
[2017-04-17] MEDS: Hydrocortisone Sodium Succ 100 MG/2 ML VIAL IVP SCH ×3 (04:06→17:50)
[2017-04-17] MEDS: Lacri-Lube 3.5 GM TUBE BOTH EYES SCH ×3 (04:06→10:37)
[2017-04-17 04:42] LABS: ABG Base Excess 7 mEq/L (-2 to 3); ABG HCO3 33 mEq/L (21-27); ABG Oxygen Saturation 97 % (95-98); ABG PCO2 55 mmHg (35-45); ABG PH 7.39 pH Units (7.32-7.45); ABG PO2 96 mmHg (85-104); ABG TCO2 35 mEq/L (20-26); Blood Gas PEEP 8 cm H2O; Blood Gas VT 600 cc
[2017-04-17 04:56] LABS: Basophils % 0.1 %; Hematocrit 36.9 % (37.5-50.1); Hemoglobin 11.7 g/dL (12.9-16.9); Immature Granulocytes % 0.7 % (0-4); Lymphocytes # 0.4 K/mcL (0.6-4.6); Lymphocytes % 2.9 %; Mean Corpuscular HGB Conc 31.7 g/dL (31.6-35.5); Mean Corpuscular Hemoglobin 28.7 pg (28.0-33.3); Mean Corpuscular Volume 90.7 fL (83.0-100.0); Mean Platelet Volume 9.4 fL (9.4-12.4); Monocytes # 0.4 K/mcL (0.0-1.3); Monocytes % 2.8 %; Neutrophils # 13.1 K/mcL (1.6-8.9); Platelet Count 316 K/mcL (140-400); Red Blood Count 4.07 M/mcL (4.19-5.50); Red Cell Distribution Width 14.7 % (11.5-14.5); Segmented Neutrophils % 93.5 %
[2017-04-17 05:27] LABS: BUN/Creatinine Ratio 59 (6-26); Blood Urea Nitrogen 40 mg/dL (8-26); Calcium 9.3 mg/dL (8.6-10.8); Carbon Dioxide 33 mEq/L (19-29); Chloride 101 mEq/L (98-109); Glucose 133 mg/dL (70-99); Osmolality,Calculated 304 (280-300); Potassium 4.5 mEq/L (3.5-4.5); Sodium 141 mEq/L (136-145); eGFR For African Americans > 60 (> 60); eGFR For Non-African Americans > 60 (> 60)
[2017-04-17 05:33] LABS: Albumin 2.2 g/dL (3.5-5.0); Albumin/Globulin Ratio 0.6 (1.1-2.2); Bilirubin,Direct 0.8 mg/dL (0.0-0.5); Bilirubin,Indirect 0.4 mg/dL (0.0-1.2); Bilirubin,Total 1.2 mg/dL (0.2-1.2); Globulin 3.9 g/dL (2.4-3.5); Total Protein 6.1 g/dL (6.0-8.3)
[2017-04-17] MEDS: Insulin LISPRO 300 UNITS/3 ML VIAL SQ SCH ×3 (05:55→17:55)
[2017-04-17] MEDS: *HR* LORazepam 2 MG/ML VIAL IVP PRN ×2 (07:44→22:50)
[2017-04-17 07:46] LABS: Phosphorous 4.7 mg/dL (2.3-4.7)
[2017-04-17] MEDS: Chlorhexidine Rinse 15 ML MOUTHWASH MM SCH (07:48)
[2017-04-17] MEDS: cefTRIAXone 2,000 MG in Water for inj. (sterile) 20 ML IVP SCH (07:49)
[2017-04-17] MEDS: Pantoprazole 40 MG VIAL IVP SCH (07:50)
[2017-04-17] MEDS: Sennosides/Docusate Sodium TABLET PO SCH ×2 (07:50→20:41)
--- NOTE | 2017-04-17 08:33 | Pulmonology Progress Note ---
<Shiva Balbuena W - Last Filed: 04/17/17 10:13> Date of Encounter: 04/17/17 Assessment and Plan (1) Acute and chronic respiratory failure with hypoxia Current Visit: Yes Status: Acute (2) CAD in [place] artery Current Visit: Yes Status: Chronic (3) Hypotensive episode Current Visit: Yes Status: Acute (4) PAF (paroxysmal atrial fibrillation) Current Visit: Yes Status: Acute (5) Biliary dyskinesia Current Visit: Yes Status: Chronic (6) Cardiomyopathy Current Visit: Yes Status: Chronic Qualifiers: Cardiomyopathy type: unspecified Qualified Code(s): I42.9 - Cardiomyopathy , unspecified Objective PUL Vital signs: Last Vital Signs Temp 97.1 F L 04/17/17 07:32 Pulse 72 04/17/17 08:00 Resp 28 04/17/17 08:00 BP 126/65 04/17/17 08:00 Pulse Ox 94 04/17/17 08:00 Results - Laboratory Findings CBC and BMP: 04/17/17 04:24 04/17/17 04:24 ABG ABG pH 7.39 pH Units (7.32-7.45) 04/17/17 04:39 ABG pCO2 55 mmHg (35-45) H 04/17/17 04:39 ABG pO2 96 mmHg (85-104) 04/17/17 04:39 ABG O2 Saturation 97 % (95-98) 04/17/17 04:39 PT/INR, D-dimer PT 16.0 Seconds (9.4-12.1) H 04/12/17 17:50 Abnormal lab findings: Abnormal lab results WBC 14.0 K/mcL (4.3-11.1) H 04/17/17 04:24 RBC 4.07 M/mcL (4.19-5.50) L 04/17/17 04:24 Hgb 11.7 g/dL (12.9-16.9) L 04/17/17 04:24 Hct 36.9 % (37.5-50.1) L 04/17/17 04:24 RDW 14.7 % (11.5-14.5) H 04/17/17 04:24 Band Neutrophils % 21.0 % (0-4) H 04/07/17 18:58 Metamyelocytes % 3.0 % (0) H 04/07/17 18:58 Neutrophils # 13.1 K/mcL (1.6-8.9) H 04/17/17 04:24 Lymphocytes # 0.4 K/mcL (0.6-4.6) L 04/17/17 04:24 Platelet Estimate Slight Decrease (Normal) L 04/09/17 03:10 Large Platelets Present (Not Present) A 04/08/17 04:05 PT 16.0 Seconds (9.4-12.1) H 04/12/17 17:50 ABG pCO2 55 mmHg (35-45) H 04/17/17 04:39 ABG HCO3 33 mEq/L (21-27) H 04/17/17 04:39 ABG Total CO2 35 mEq/L (20-26) H 04/17/17 04:39 ABG Base Excess 7 mEq/L (-2 to 3) H 04/17/17 04:39 Carbon Dioxide 33 mEq/L (19-29) H 04/17/17 04:24 BUN 40 mg/dL (8-26) H D 04/17/17 04:24 Creatinine 0.68 mg/dL (0.72-1.25) L 04/17/17 04:24 BUN/Creatinine Ratio 59 (6-26) H 04/17/17 04:24 Glucose 133 mg/dL (70-99) H 04/17/17 04:24 POC Glucose 133 (58-89) H 04/16/17 23:40 Calculated Osmolality 304 (280-300) H 04/17/17 04:24 Direct Bilirubin 0.8 mg/dL (0.0-0.5) H 04/17/17 04:24 AST 57 Units/L (5-34) H 04/17/17 04:24 ALT 93 Units/L (0-55) H 04/17/17 04:24 Alkaline Phosphatase 147 Units/L (38-126) H 04/17/17 04:24 Troponin I 0.15 ng/mL (0-0.03) H* 04/13/17 03:25 Albumin 2.2 g/dL (3.5-5.0) L 04/17/17 04:24 Globulin 3.9 g/dL (2.4-3.5) H 04/17/17 04:24 Albumin/Globulin Ratio 0.6 (1.1-2.2) L 04/17/17 04:24 Prealbumin 14.0 mg/dL (18.0-45.0) L 04/11/17 06:33 - Microbiology Findings Microbiology Findings: Microbiology, Last 48 Hours 04/11/17 09:22 Blood Culture - Final Peripheral Venipuncture No growth. 04/11/17 09:22 Blood Culture - Final Peripheral Venipuncture No growth. 04/11/17 17:27 Sputum Culture - Final Sputum Bernice tropicalis - Clinical Findings Intake & Output: Intake & Output 04/16/17 04/17/17 04/17/17 23:59 07:59 15:59 Intake Total 100 / 100 418 / 418 Output Total 225 / 225 500 / 500 Balance -125 / -125 -82 / -82 Weight 74.7 kg Consult Discharge Plan - Plan Referrals: Ellen Vora DO [Primary Care Provider] - - Attending Attestation I examined this patient and my medical decision-making was reviewed with the Resident Physician. I agree with the documented findings, disposition and treatment plan as described except to the extent set forth below. We independently had [id number] contact with the patient Patient seen and examined at bedside Labs, radiology, chart personally reviewed. Management was reviewed during multidisciplinary critical care rounds. [employer]: Continues to exhibit severe Delirium. Titrate Atypical Antipsychotic. avoid sensory deprivation. Cont [place]. to prevent self harm. Pulm:Acute hypoxic/hypercarbic respiratory failure. NIV as need Cards: Underlying CAD Cardiomyopathy. s/p AICD. Remains Volume Overloaded. Cont diuresis FEN-GI: Cont Enternal Nutrition via PEG Renal: No KAMILAH cont Monitor ID: Stop ABx for CAP. monitor leuckocytosis Heme/Onc: Endo: Glucose Monitored. wean stress dose hydrocortisone Integ/MSK: Skin Care per routine ICU Nursing Protocol to prevent ulcers. Lines: All lines examined without evidence of infection : Dispo: Remain in ICU for high risk of deterioration. CODE:Full. <Wilfrid Stringer - Last Filed: 04/17/17 11:21> Date of Encounter: 04/17/17 Time of Encounter: 08:33 Assessment and Plan (1) Hypotension Current Visit: Yes Status: Acute Resolved at this time. Likely multifactorial with causes including sepsis, adrenal insufficiency. Patient remains on antibiotics for strep pneumoniae pneumonia. Random cortisol was 4, patient was started on Solu-Cortef 100 mg every 8 hours and he responded well. Continue corticosteroids, continue monitor blood pressure. Qualifiers: Hypotension type: unspecified hypotension type Qualified Code(s): I95.9 - Hypotension, unspecified (2) Acute and chronic respiratory failure with hypoxia Current Visit: Yes Status: Acute Likely secondary to pneumonia. Patient self extubated over the weekend. Oxygenation is stable at this time. (3) Adrenal insufficiency Current Visit: Yes Status: Acute Likely contributing to the patient's hypotension. Random cortisol was 4, patient was started on Solu-Cortef 100 mg every 8 hours and responded well. (4) Pneumonia Current Visit: Yes Status: Acute Secondary to Streptococcus pneumoniae. Patient had decompensation of his respiratory status as discussed above and is now intubated again. Sensitivities show that his strep pneumo is sensitive to Rocephin. Patient completed 12 days of antibiotic therapy so we will discontinue antibiotics at this time. Repeat cultures including blood cultures and sputum cultures show no growth to date. Qualifiers: Pneumonia type: due to group B Streptococcus Laterality: left Lung location: lower lobe of lung Qualified Code(s): J15.3 - Pneumonia due to streptococcus, group B (5) Delirium Current Visit: Yes Status: Acute Patient remains acutely altered. Likely related to critical illness as well as underlying infection and adrenal insufficiency. Will increase his Seroquel to 50 mg in the morning and 25 mg at night, continue melatonin at night. Continue to encourage denied differentiation with good sleep-wake cycle. Will avoid benzodiazepines and less patient become so agitated that he becomes dangerous to himself. (6) Septic shock Current Visit: Yes Status: Resolved Secondary to strep pneumoniae pneumonia as discussed above. Shock has resolved.. Lactate normal. Repeat cultures show no growth. (7) CAD in [place] Current Visit: Yes Status: Chronic No evidence of ACS. Troponins negative, no ischemic changes. Cardiology has evaluated the patient and recommended no further intervention. (8) Cardiomyopathy Current Visit: Yes Status: Chronic Echo shows normal EF with mild diastolic dysfunction. No evidence of acute cardiomyopathy. Hold diuresis as discussed above. Continue to monitor. Qualifiers: Cardiomyopathy type: unspecified Qualified Code(s): I42.9 - Cardiomyopathy , unspecified (9) Hypotensive episode Current Visit: Yes Status: Acute Patient became hypotensive during induction of anesthesia for his is elective procedure on Monday. Possibly related to medications however underlying infection could have contributed as well. (10) Biliary dyskinesia Current Visit: Yes Status: Chronic Patient was supposed to undergo elective cholecystectomy prior to admission however this was aborted due to hypotensive episode during induction of anesthesia as discussed above. Surgery is following. PEG tube placed, continue enteral feedings (11) PAF (paroxysmal atrial fibrillation) Current Visit: Yes Status: Acute Patient is currently in paced rhythm. He is on chronic anticoagulation with Eliquis at home. Continue to hold given the patient's critical condition. Rate is controlled. Patient is on heparin for DVT prophylaxis Subjective Principal diagnosis: Hypotensive event Interval history: Patient seen and examined at bedside. Patient is currently intubated and sedated. Does not appear to be in any acute distress. He continues to have labile blood pressures and oxygen saturation. Objective PUL Vital signs: Last Vital Signs Temp 97.1 F L 04/17/17 07:32 Pulse 72 04/17/17 08:00 Resp 28 04/17/17 08:00 BP 126/65 04/17/17 08:00 Pulse Ox 94 04/17/17 08:00 Results - Laboratory Findings CBC and BMP: 04/17/17 04:24 04/17/17 04:24 ABG ABG pH 7.39 pH Units (7.32-7.45) 04/17/17 04:39 ABG pCO2 55 mmHg (35-45) H 04/17/17 04:39 ABG pO2 96 mmHg (85-104) 04/17/17 04:39 ABG O2 Saturation 97 % (95-98) 04/17/17 04:39 PT/INR, D-dimer PT 16.0 Seconds (9.4-12.1) H 04/12/17 17:50 Abnormal lab findings: Abnormal lab results WBC 14.0 K/mcL (4.3-11.1) H 04/17/17 04:24 RBC 4.07 M/mcL (4.19-5.50) L 04/17/17 04:24 Hgb 11.7 g/dL (12.9-16.9) L 04/17/17 04:24 Hct 36.9 % (37.5-50.1) L 04/17/17 04:24 RDW 14.7 % (11.5-14.5) H 04/17/17 04:24 Band Neutrophils % 21.0 % (0-4) H 04/07/17 18:58 Metamyelocytes % 3.0 % (0) H 04/07/17 18:58 Neutrophils # 13.1 K/mcL (1.6-8.9) H 04/17/17 04:24 Lymphocytes # 0.4 K/mcL (0.6-4.6) L 04/17/17 04:24 Platelet Estimate Slight Decrease (Normal) L 04/09/17 03:10 Large Platelets Present (Not Present) A 04/08/17 04:05 PT 16.0 Seconds (9.4-12.1) H 04/12/17 17:50 ABG pCO2 55 mmHg (35-45) H 04/17/17 04:39 ABG HCO3 33 mEq/L (21-27) H 04/17/17 04:39 ABG Total CO2 35 mEq/L (20-26) H 04/17/17 04:39 ABG Base Excess 7 mEq/L (-2 to 3) H 04/17/17 04:39 Carbon Dioxide 33 mEq/L (19-29) H 04/17/17 04:24 BUN 40 mg/dL (8-26) H D 04/17/17 04:24 Creatinine 0.68 mg/dL (0.72-1.25) L 04/17/17 04:24 BUN/Creatinine Ratio 59 (6-26) H 04/17/17 04:24 Glucose 133 mg/dL (70-99) H 04/17/17 04:24 POC Glucose 133 (58-89) H 04/16/17 23:40 Calculated Osmolality 304 (280-300) H 04/17/17 04:24 Direct Bilirubin 0.8 mg/dL (0.0-0.5) H 04/17/17 04:24 AST 57 Units/L (5-34) H 04/17/17 04:24 ALT 93 Units/L (0-55) H 04/17/17 04:24 Alkaline Phosphatase 147 Units/L (38-126) H 04/17/17 04:24 Troponin I 0.15 ng/mL (0-0.03) H* 04/13/17 03:25 Albumin 2.2 g/dL (3.5-5.0) L 04/17/17 04:24 Globulin 3.9 g/dL (2.4-3.5) H 04/17/17 04:24 Albumin/Globulin Ratio 0.6 (1.1-2.2) L 04/17/17 04:24 Prealbumin 14.0 mg/dL (18.0-45.0) L 04/11/17 06:33 - Microbiology Findings Microbiology Findings: Microbiology, Last 48 Hours 04/11/17 09:22 Blood Culture - Final Peripheral Venipuncture No growth. 04/11/17 09:22 Blood Culture - Final Peripheral Venipuncture No growth. 04/11/17 17:27 Sputum Culture - Final Sputum Bernice tropicalis - Clinical Findings Intake & Output: Intake & Output 04/16/17 04/17/17 04/17/17 23:59 07:59 15:59 Intake Total 100 / 100 418 / 418 Output Total 225 / 225 500 / 500 Balance -125 / -125 -82 / -82 Weight 74.7 kg - VTE Documentation of Mechanical Device: Intermittent pneumatic compression device
[2017-04-17 12:26] LABS: ABG Base Excess 9 mEq/L (-2 to 3); ABG HCO3 35 mEq/L (21-27); ABG Oxygen Saturation 98 % (95-98); ABG PCO2 57 mmHg (35-45); ABG PO2 103 mmHg (85-104); ABG TCO2 37 mEq/L (20-26); Blood Gas Modality BiLevel; Blood Gas PEEP 4 cm H2O; Blood Gas Pressure Support 36 cm H2O; Blood Gas Respiration Rate 8
[2017-04-17] MEDS ORDERED: Melatonin 3 MG TABLET PO SCH (21:00)
[2017-04-18] MEDS: *HR* Heparin 5,000 UNIT/ML VIAL SQ SCH ×2 (00:15→09:12)
[2017-04-18] MEDS: Insulin LISPRO 300 UNITS/3 ML VIAL SQ SCH ×3 (00:15→12:26)
[2017-04-18] MEDS: Hydrocortisone Sodium Succ 100 MG/2 ML VIAL IVP SCH ×2 (02:23→09:30)
[2017-04-18] MEDS: Dexmedetomidine HCl 400 MCG/100 ML MLS IVC SCH ×4 (04:14→21:43)
[2017-04-18] MEDS: Ipratropium/Albuterol Neb 3 ML IH SCH ×4 (04:35→16:47)
--- NOTE | 2017-04-18 07:23 | Pulmonology Progress Note ---
<Wilfrid Stringer - Last Filed: 04/18/17 09:55> Date of Encounter: 04/18/17 Time of Encounter: 07:19 Assessment and Plan (1) Hypotension Current Visit: Yes Status: Acute Resolved at this time. Likely multifactorial with causes including sepsis, adrenal insufficiency. Patient completed a course of antibiotics for pneumonia. Random cortisol was 4, patient was started on Solu-Cortef 100 mg every 8 hours and he responded well, decrease to 50mg q8. Blood pressure remains stable. continue monitor blood pressure. Qualifiers: Hypotension type: unspecified hypotension type Qualified Code(s): I95.9 - Hypotension, unspecified (2) Acute and chronic respiratory failure with hypoxia Current Visit: Yes Status: Acute Likely secondary to pneumonia. Patient self extubated over the weekend. Oxygenation is stable at this time. BiPAP prn (3) Adrenal insufficiency Current Visit: Yes Status: Acute Likely contributing to the patient's hypotension. Random cortisol was 4, patient was started on Solu-Cortef 100 mg every 8 hours and responded well. Decreased solu-cortef 50mg q8h (4) Pneumonia Current Visit: Yes Status: Acute Secondary to Streptococcus pneumoniae. Patient had decompensation of his respiratory status as discussed above and is now intubated again. Sensitivities show that his strep pneumo is sensitive to Rocephin. Patient completed 12 days of antibiotic therapy so we will discontinue antibiotics at this time. Repeat cultures including blood cultures and sputum cultures show no growth to date. Qualifiers: Pneumonia type: due to group B Streptococcus Laterality: left Lung location: lower lobe of lung Qualified Code(s): J15.3 - Pneumonia due to streptococcus, group B (5) Delirium Current Visit: Yes Status: Acute Patient remains acutely altered. Likely related to critical illness as well as underlying infection and adrenal insufficiency. continue melatonin at night. Attempted to increase seroquel yesterday to 50mg in the AM but patient became over sedated. We will switch to Zyprexa. Continue to encourage day/night differentiation with good sleep-wake cycle. Will avoid benzodiazepines unless patient become so agitated that he becomes dangerous to himself. (6) Septic shock Current Visit: Yes Status: Resolved Secondary to strep pneumoniae pneumonia as discussed above. Shock has resolved.. Lactate normal. Repeat cultures show no growth. (7) CAD in [place] artery Current Visit: Yes Status: Chronic No evidence of ACS. Troponins negative, no ischemic changes. Cardiology has evaluated the patient and recommended no further intervention. (8) Cardiomyopathy Current Visit: Yes Status: Chronic Echo shows normal EF with mild diastolic dysfunction. No evidence of acute cardiomyopathy. Hold diuresis as discussed above. Continue to monitor. Qualifiers: Cardiomyopathy type: unspecified Qualified Code(s): I42.9 - Cardiomyopathy , unspecified (9) Hypotensive episode Current Visit: Yes Status: Acute Patient became hypotensive during induction of anesthesia for his is elective procedure on Monday. Possibly related to medications however underlying infection could have contributed as well. (10) Biliary dyskinesia Current Visit: Yes Status: Chronic Patient was supposed to undergo elective cholecystectomy prior to admission however this was aborted due to hypotensive episode during induction of anesthesia as discussed above. Surgery is following. PEG tube placed, continue enteral feedings (11) PAF (paroxysmal atrial fibrillation) Current Visit: Yes Status: Acute Patient is currently in paced rhythm. He is on chronic anticoagulation with Eliquis at home. Continue to hold given the patient's critical condition. Rate is controlled. Patient is on heparin for DVT prophylaxis Subjective Principal diagnosis: Hypotensive event Interval history: Patient seen and examined at bedside. Does not appear to be in any acute distress. He did have some agitation overnight requiring ativan. He is arousable and easily redirected. Objective PUL Vital signs: Last Vital Signs Temp 97.9 F 04/18/17 04:00 Pulse 80 04/18/17 06:00 Resp 12 04/18/17 06:00 BP 108/68 04/18/17 06:00 Pulse Ox 98 04/18/17 06:00 General appearance: no acute distress ENT: oropharynx moist Auscultation: bilateral: rhonchi (improved from yesterday) Gastrointestinal: normoactive bowel sounds, soft, non-tender, non-distended Extremities: no cyanosis, no edema, no clubbing unable to assess due to mental status Results - Laboratory Findings CBC and BMP: 04/18/17 07:16 04/18/17 07:16 ABG ABG pH 7.40 pH Units (7.32-7.45) 04/17/17 12:20 ABG pCO2 57 mmHg (35-45) H 04/17/17 12:20 ABG pO2 103 mmHg (85-104) 04/17/17 12:20 ABG O2 Saturation 98 % (95-98) 04/17/17 12:20 PT/INR, D-dimer PT 16.0 Seconds (9.4-12.1) H 04/12/17 17:50 Abnormal lab findings: Abnormal lab results WBC 14.0 K/mcL (4.3-11.1) H 04/17/17 04:24 RBC 4.07 M/mcL (4.19-5.50) L 04/17/17 04:24 Hgb 11.7 g/dL (12.9-16.9) L 04/17/17 04:24 Hct 36.9 % (37.5-50.1) L 04/17/17 04:24 RDW 14.7 % (11.5-14.5) H 04/17/17 04:24 Band Neutrophils % 21.0 % (0-4) H 04/07/17 18:58 Metamyelocytes % 3.0 % (0) H 04/07/17 18:58 Neutrophils # 13.1 K/mcL (1.6-8.9) H 04/17/17 04:24 Lymphocytes # 0.4 K/mcL (0.6-4.6) L 04/17/17 04:24 Platelet Estimate Slight Decrease (Normal) L 04/09/17 03:10 Large Platelets Present (Not Present) A 04/08/17 04:05 PT 16.0 Seconds (9.4-12.1) H 04/12/17 17:50 ABG pCO2 57 mmHg (35-45) H 04/17/17 12:20 ABG HCO3 35 mEq/L (21-27) H 04/17/17 12:20 ABG Total CO2 37 mEq/L (20-26) H 04/17/17 12:20 ABG Base Excess 9 mEq/L (-2 to 3) H 04/17/17 12:20 Carbon Dioxide 33 mEq/L (19-29) H 04/17/17 04:24 BUN 40 mg/dL (8-26) H D 04/17/17 04:24 Creatinine 0.68 mg/dL (0.72-1.25) L 04/17/17 04:24 BUN/Creatinine Ratio 59 (6-26) H 04/17/17 04:24 Glucose 133 mg/dL (70-99) H 04/17/17 04:24 POC Glucose 152 (58-89) H 04/18/17 00:10 Calculated Osmolality 304 (280-300) H 04/17/17 04:24 Direct Bilirubin 0.8 mg/dL (0.0-0.5) H 04/17/17 04:24 AST 57 Units/L (5-34) H 04/17/17 04:24 ALT 93 Units/L (0-55) H 04/17/17 04:24 Alkaline Phosphatase 147 Units/L (38-126) H 04/17/17 04:24 Troponin I 0.15 ng/mL (0-0.03) H* 04/13/17 03:25 Albumin 2.2 g/dL (3.5-5.0) L 04/17/17 04:24 Globulin 3.9 g/dL (2.4-3.5) H 04/17/17 04:24 Albumin/Globulin Ratio 0.6 (1.1-2.2) L 04/17/17 04:24 Prealbumin 14.0 mg/dL (18.0-45.0) L 04/11/17 06:33 - Microbiology Findings Microbiology Findings: Microbiology, Last 48 Hours 04/11/17 09:22 Blood Culture - Final Peripheral Venipuncture No growth. 04/11/17 09:22 Blood Culture - Final Peripheral Venipuncture No growth. 04/11/17 17:27 Sputum Culture - Final Sputum Bernice tropicalis - Clinical Findings Intake & Output: Intake & Output 04/17/17 04/17/17 04/18/17 15:59 23:59 07:59 Intake Total 532 / 532 640 / 640 460 / 460 Output Total 375 / 375 200 / 200 425 / 425 Balance 157 / 157 440 / 440 35 / 35 Weight 76.7 kg - VTE Documentation of Mechanical Device: Intermittent pneumatic compression device Consult Discharge Plan - Plan Referrals: Ellen Vora DO [Primary Care Provider] - <Shiva Balbuena - Last Filed: 04/18/17 12:29> Date of Encounter: 04/18/17 Assessment and Plan (1) Acute and chronic respiratory failure with hypoxia Current Visit: Yes Status: Acute (2) CAD in [place] artery Current Visit: Yes Status: Chronic (3) Hypotensive episode Current Visit: Yes Status: Acute (4) PAF (paroxysmal atrial fibrillation) Current Visit: Yes Status: Acute (5) Biliary dyskinesia Current Visit: Yes Status: Chronic (6) Cardiomyopathy Current Visit: Yes Status: Chronic Qualifiers: Cardiomyopathy type: unspecified Qualified Code(s): I42.9 - Cardiomyopathy , unspecified Objective PUL Vital signs: Last Vital Signs Temp 98 F 04/18/17 07:08 Pulse 80 04/18/17 06:00 Resp 22 04/18/17 07:44 BP 108/78 04/18/17 07:44 Pulse Ox 92 04/18/17 07:44 Results - Laboratory Findings CBC and BMP: 04/18/17 07:16 04/18/17 07:16 ABG ABG pH 7.42 pH Units (7.32-7.45) 04/18/17 08:37 ABG pCO2 55 mmHg (35-45) H 04/18/17 08:37 ABG pO2 81 mmHg (85-104) L 04/18/17 08:37 ABG O2 Saturation 96 % (95-98) 04/18/17 08:37 PT/INR, D-dimer PT 16.0 Seconds (9.4-12.1) H 04/12/17 17:50 Abnormal lab findings: Abnormal lab results RBC 4.00 M/mcL (4.19-5.50) L 04/18/17 07:16 Hgb 11.4 g/dL (12.9-16.9) L 04/18/17 07:16 Hct 36.5 % (37.5-50.1) L 04/18/17 07:16 MCHC 31.2 g/dL (31.6-35.5) L 04/18/17 07:16 RDW 14.6 % (11.5-14.5) H 04/18/17 07:16 Band Neutrophils % 21.0 % (0-4) H 04/07/17 18:58 Metamyelocytes % 3.0 % (0) H 04/07/17 18:58 Neutrophils # 9.3 K/mcL (1.6-8.9) H 04/18/17 07:16 Lymphocytes # 0.3 K/mcL (0.6-4.6) L 04/18/17 07:16 Platelet Estimate Slight Decrease (Normal) L 04/09/17 03:10 Large Platelets Present (Not Present) A 04/08/17 04:05 PT 16.0 Seconds (9.4-12.1) H 04/12/17 17:50 ABG pCO2 55 mmHg (35-45) H 04/18/17 08:37 ABG pO2 81 mmHg (85-104) L 04/18/17 08:37 ABG HCO3 36 mEq/L (21-27) H 04/18/17 08:37 ABG Total CO2 38 mEq/L (20-26) H 04/18/17 08:37 ABG Base Excess 10 mEq/L (-2 to 3) H 04/18/17 08:37 Carbon Dioxide 34 mEq/L (19-29) H 04/18/17 07:16 BUN 34 mg/dL (8-26) H 04/18/17 07:16 Creatinine 0.63 mg/dL (0.72-1.25) L 04/18/17 07:16 BUN/Creatinine Ratio 54 (6-26) H 04/18/17 07:16 Glucose 116 mg/dL (70-99) H 04/18/17 07:16 POC Glucose 152 (58-89) H 04/18/17 00:10 Calculated Osmolality 307 (280-300) H 04/18/17 07:16 Direct Bilirubin 0.7 mg/dL (0.0-0.5) H 04/18/17 07:16 AST 41 Units/L (5-34) H 04/18/17 07:16 ALT 87 Units/L (0-55) H 04/18/17 07:16 Alkaline Phosphatase 141 Units/L (38-126) H 04/18/17 07:16 Troponin I 0.15 ng/mL (0-0.03) H* 04/13/17 03:25 Serum Total Protein 5.7 g/dL (6.0-8.3) L 04/18/17 07:16 Albumin 2.1 g/dL (3.5-5.0) L 04/18/17 07:16 Globulin 3.6 g/dL (2.4-3.5) H 04/18/17 07:16 Albumin/Globulin Ratio 0.6 (1.1-2.2) L 04/18/17 07:16 Prealbumin 14.0 mg/dL (18.0-45.0) L 04/11/17 06:33 - Microbiology Findings Microbiology Findings: Microbiology, Last 48 Hours 04/12/17 17:53 Blood Culture - Final Peripheral Venipuncture No growth. 04/12/17 17:53 Blood Culture - Final Peripheral Venipuncture No growth. 04/11/17 09:22 Blood Culture - Final Peripheral Venipuncture No growth. 04/11/17 09:22 Blood Culture - Final Peripheral Venipuncture No growth. 04/11/17 17:27 Sputum Culture - Final Sputum Bernice tropicalis - Clinical Findings Intake & Output: Intake & Output 04/17/17 04/18/17 04/18/17 23:59 07:59 15:59 Intake Total 640 / 640 460 / 460 Output Total 200 / 200 625 / 625 Balance 440 / 440 -165 / -165 Weight 76.7 kg - Attending Attestation I examined this patient and my medical decision-making was reviewed with the Resident Physician. I agree with the documented findings, disposition and treatment plan as described except to the extent set forth below. We independently had [id number] contact with the patient I spent 33 min of Critical Care time with this patient. It involved decision making of high complexity to assess, manipulate, and support vital organ system failure and/or to prevent further life threatening deterioration of the patient' s condition. The time involved in the performance of separately reportable procedures was not counted toward critical care time. Patient seen and examined at bedside Labs, radiology, chart personally reviewed. Management was reviewed during multidisciplinary critical care rounds. 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 Cont sleep wake cycle church as able and avoidance of sensory deprivation. Pulm: Acute respiratory desaturation this morning related to agitation complicated by pulmonary edema and MSK deformities. I adjsuted NIV acutely from AVAPS to BiPAP and increase in Fio2. Lasix given small dose of benzo improved mechanics. Repeat ABG pending. Very tenuous respiratory status nearly requiring intubation emergently. (see family discussion below). Cards: Ischemic Cardiomyopathy with Pulmonary Edema. Cont Diuresis. BP is controlled FEN-GI: Cont enteral nutrition through PEG. Renal:stable sCr and UOP cont to monitor ID: Treated for CAP (StrepPNA) Heme/Onc: DVT prophylaxis given Endo: Glucose Monitored Integ/MSK: Skin Care per routine ICU Nursing Protocol to prevent ulcers. Lines: All lines examined without evidence of infection : Dispo: Remain in ICU CODE: DNRCC. I spoke with the family after rounds (the results of which were discussed above) including the patient's has 3 adult children in their extended family in the ICU room. Given ongoing tenuous respiratory status with possibility of intubation family discuss the possibility of transitioning to comfort measures I explained that without ongoing aggressive care and likely mechanical ventilation and some amount of time in nursing facility chances of survival would be very slim. I explained that as far as quality of life goes if his wishes were to not pursue advanced ongoing medical care that this would be a point to transition to comfort measures the family expressed that his wishes were not to continue in this state of delirium and chronic respiratory failure and in a compassionate fashion all made the same decision of the the goals of care should be transitioned to comfort measures only the CODE STATUS was changed to reflect this The patient is unable or incompetent to participate in giving a history and/or making treatment decisions. The discussion was necessary for determining treatment decision. This discussion took place in the ICU. The total meeting time was 20 minutes.
[2017-04-18] MEDS ORDERED: Furosemide 40 MG/4 ML VIAL IVP ONE (07:29)
[2017-04-18] MEDS ORDERED: Furosemide 40 MG/4 ML VIAL ONE (07:33)
[2017-04-18 07:39] LABS: Basophils % 0.1 %; Hematocrit 36.5 % (37.5-50.1); Hemoglobin 11.4 g/dL (12.9-16.9); Immature Granulocytes % 0.8 % (0-4); Lymphocytes # 0.3 K/mcL (0.6-4.6); Lymphocytes % 3.2 %; Mean Corpuscular HGB Conc 31.2 g/dL (31.6-35.5); Mean Corpuscular Hemoglobin 28.5 pg (28.0-33.3); Mean Corpuscular Volume 91.3 fL (83.0-100.0); Mean Platelet Volume 9.4 fL (9.4-12.4); Monocytes # 0.6 K/mcL (0.0-1.3); Monocytes % 5.5 %; Neutrophils # 9.3 K/mcL (1.6-8.9); Platelet Count 379 K/mcL (140-400); Red Cell Distribution Width 14.6 % (11.5-14.5); Segmented Neutrophils % 90.4 %
[2017-04-18] MEDS: *HR* LORazepam 2 MG/ML VIAL IVP PRN ×7 (07:40→22:45)
[2017-04-18 07:48] LABS: Alanine Aminotransferase 87 Units/L (0-55); Albumin 2.1 g/dL (3.5-5.0); Albumin/Globulin Ratio 0.6 (1.1-2.2); Alkaline Phosphatase 141 Units/L (38-126); Aspartate Amino Transferase 41 Units/L (5-34); BUN/Creatinine Ratio 54 (6-26); Bilirubin,Direct 0.7 mg/dL (0.0-0.5); Bilirubin,Indirect 0.3 mg/dL (0.0-1.2); Blood Urea Nitrogen 34 mg/dL (8-26); Carbon Dioxide 34 mEq/L (19-29); Chloride 103 mEq/L (98-109); Globulin 3.6 g/dL (2.4-3.5); Glucose 116 mg/dL (70-99); Osmolality,Calculated 307 (280-300); Potassium 3.9 mEq/L (3.5-4.5); Sodium 144 mEq/L (136-145); Total Protein 5.7 g/dL (6.0-8.3); eGFR For African Americans > 60 (> 60); eGFR For Non-African Americans > 60 (> 60)
--- NOTE | 2017-04-18 07:58 | Event Note ---
Date of Encounter: 04/18/17 Time of Encounter: 07:56 Patient became acutely tachypneic and hypoxic this morning with his respiratory rate in the 40s and oxygen saturation in the high 70s to low 80s. He was placed on noninvasive positive pressure ventilation and was given 0.5mg of Ativan which allowed him to relax and improve his respiratory rate and saturation. During this event we spoke with the patient's regarding possible reintubation and she stated that she would not 1 him to be reintubated at this time. She felt that this is not what the patient would want. Will discuss further with the and daughters upon their arrival.
[2017-04-18 08:40] LABS: ABG Base Excess 10 mEq/L (-2 to 3); ABG HCO3 36 mEq/L (21-27); ABG Oxygen Saturation 96 % (95-98); ABG PCO2 55 mmHg (35-45); ABG PH 7.42 pH Units (7.32-7.45); ABG PO2 81 mmHg (85-104); ABG TCO2 38 mEq/L (20-26); Blood Gas Modality PS; Blood Gas PEEP 8 cm H2O; Blood Gas Pressure Support 18 cm H2O
[2017-04-18] MEDS: OLANZapine 5 MG TAB.RAPDIS PO SCH (09:11)
[2017-04-18] MEDS: Sennosides/Docusate Sodium TABLET PO SCH (09:12)
[2017-04-18] MEDS: Pantoprazole 40 MG VIAL IVP SCH (09:12)
[2017-04-18] MEDS ORDERED: *HR* LORazepam 2 MG/ML VIAL IVP PRN (10:22)
[2017-04-18] MEDS ORDERED: Hydrocortisone Sodium Succ 100 MG/2 ML VIAL IVP SCH (10:23)
[2017-04-18] MEDS: *HR* Morphine 2 MG/ML SYRINGE IVP PRN ×8 (12:52→23:10)
[2017-04-18] MEDS ORDERED: Ipratropium/Albuterol Neb 3 ML IH PRN (16:46)
[2017-04-19] MEDS: *HR* Morphine 2 MG/ML SYRINGE IVP PRN ×9 (00:53→11:09)
[2017-04-19] MEDS: *HR* LORazepam 2 MG/ML VIAL IVP PRN ×7 (02:18→11:09)
[2017-04-19] MEDS: Dexmedetomidine HCl 400 MCG/100 ML MLS IVC SCH (03:49)
--- NOTE | 2017-04-19 09:42 | Pulmonology Progress Note ---
<Wilfrid Stringer - Last Filed: 04/19/17 15:55> Date of Encounter: 04/19/17 Time of Encounter: 09:42 Assessment and Plan (1) Goals of care, counseling/discussion Current Visit: Yes Status: Acute Family had decided yesterday to pursue a comfort measures only approach. Comfort measures only have been instituted. Patient will be transitioned to a palliative care bed. (2) Hypotension Current Visit: Yes Status: Acute Qualifiers: Hypotension type: unspecified hypotension type Qualified Code(s): I95.9 - Hypotension, unspecified (3) Acute and chronic respiratory failure with hypoxia Current Visit: Yes Status: Acute (4) Adrenal insufficiency Current Visit: Yes Status: Acute (5) Pneumonia Current Visit: Yes Status: Acute Qualifiers: Pneumonia type: due to group B Streptococcus Laterality: left Lung location: lower lobe of lung Qualified Code(s): J15.3 - Pneumonia due to streptococcus, group B (6) Delirium Current Visit: Yes Status: Acute (7) Septic shock Current Visit: Yes Status: Resolved (8) CAD in [place] artery Current Visit: Yes Status: Chronic (9) Cardiomyopathy Current Visit: Yes Status: Chronic Qualifiers: Cardiomyopathy type: unspecified Qualified Code(s): I42.9 - Cardiomyopathy , unspecified (10) Hypotensive episode Current Visit: Yes Status: Acute (11) Biliary dyskinesia Current Visit: Yes Status: Chronic (12) PAF (paroxysmal atrial fibrillation) Current Visit: Yes Status: Acute Subjective Principal diagnosis: Hypotensive event Interval history: Patient seen and examined at bedside. Does not appear to be in any acute distress. He did have some agitation overnight requiring ativan. He is arousable and easily redirected. Objective PUL Vital signs: Last Vital Signs Temp 98.0 F 04/19/17 07:37 Pulse 81 04/19/17 08:33 Resp 12 04/19/17 08:33 BP 140/84 04/19/17 08:33 Pulse Ox 75 04/19/17 08:33 Results - Laboratory Findings CBC and BMP: 04/18/17 07:16 04/18/17 07:16 ABG ABG pH 7.42 pH Units (7.32-7.45) 04/18/17 08:37 ABG pCO2 55 mmHg (35-45) H 04/18/17 08:37 ABG pO2 81 mmHg (85-104) L 04/18/17 08:37 ABG O2 Saturation 96 % (95-98) 04/18/17 08:37 PT/INR, D-dimer PT 16.0 Seconds (9.4-12.1) H 04/12/17 17:50 Abnormal lab findings: Abnormal lab results RBC 4.00 M/mcL (4.19-5.50) L 04/18/17 07:16 Hgb 11.4 g/dL (12.9-16.9) L 04/18/17 07:16 Hct 36.5 % (37.5-50.1) L 04/18/17 07:16 MCHC 31.2 g/dL (31.6-35.5) L 04/18/17 07:16 RDW 14.6 % (11.5-14.5) H 04/18/17 07:16 Band Neutrophils % 21.0 % (0-4) H 04/07/17 18:58 Metamyelocytes % 3.0 % (0) H 04/07/17 18:58 Neutrophils # 9.3 K/mcL (1.6-8.9) H 04/18/17 07:16 Lymphocytes # 0.3 K/mcL (0.6-4.6) L 04/18/17 07:16 Platelet Estimate Slight Decrease (Normal) L 04/09/17 03:10 Large Platelets Present (Not Present) A 04/08/17 04:05 PT 16.0 Seconds (9.4-12.1) H 04/12/17 17:50 ABG pCO2 55 mmHg (35-45) H 04/18/17 08:37 ABG pO2 81 mmHg (85-104) L 04/18/17 08:37 ABG HCO3 36 mEq/L (21-27) H 04/18/17 08:37 ABG Total CO2 38 mEq/L (20-26) H 04/18/17 08:37 ABG Base Excess 10 mEq/L (-2 to 3) H 04/18/17 08:37 Carbon Dioxide 34 mEq/L (19-29) H 04/18/17 07:16 BUN 34 mg/dL (8-26) H 04/18/17 07:16 Creatinine 0.63 mg/dL (0.72-1.25) L 04/18/17 07:16 BUN/Creatinine Ratio 54 (6-26) H 04/18/17 07:16 Glucose 116 mg/dL (70-99) H 04/18/17 07:16 Calculated Osmolality 307 (280-300) H 04/18/17 07:16 Direct Bilirubin 0.7 mg/dL (0.0-0.5) H 04/18/17 07:16 AST 41 Units/L (5-34) H 04/18/17 07:16 ALT 87 Units/L (0-55) H 04/18/17 07:16 Alkaline Phosphatase 141 Units/L (38-126) H 04/18/17 07:16 Troponin I 0.15 ng/mL (0-0.03) H* 04/13/17 03:25 Serum Total Protein 5.7 g/dL (6.0-8.3) L 04/18/17 07:16 Albumin 2.1 g/dL (3.5-5.0) L 04/18/17 07:16 Globulin 3.6 g/dL (2.4-3.5) H 04/18/17 07:16 Albumin/Globulin Ratio 0.6 (1.1-2.2) L 04/18/17 07:16 Prealbumin 14.0 mg/dL (18.0-45.0) L 04/11/17 06:33 - Microbiology Findings Microbiology Findings: Microbiology, Last 48 Hours 04/12/17 17:53 Blood Culture - Final Peripheral Venipuncture No growth. 04/12/17 17:53 Blood Culture - Final Peripheral Venipuncture No growth. 04/11/17 09:22 Blood Culture - Final Peripheral Venipuncture No growth. 04/11/17 09:22 Blood Culture - Final Peripheral Venipuncture No growth. - Clinical Findings Intake & Output: Intake & Output 04/18/17 04/19/17 04/19/17 23:59 07:59 15:59 Intake Total 61.5 / 61.5 115 / 115 Balance 61.5 / 61.5 115 / 115 - VTE Documentation of Mechanical Device: Intermittent pneumatic compression device Consult Discharge Plan - Plan Referrals: Ellen Vora, [Primary Care Provider] - <Shiva Balbuena - Last Filed: 04/19/17 17:32> Date of Encounter: 04/19/17 Assessment and Plan (1) Acute and chronic respiratory failure with hypoxia Current Visit: Yes Status: Acute (2) CAD in [place] artery Current Visit: Yes Status: Chronic (3) Hypotensive episode Current Visit: Yes Status: Acute (4) PAF (paroxysmal atrial fibrillation) Current Visit: Yes Status: Acute (5) Biliary dyskinesia Current Visit: Yes Status: Chronic (6) Cardiomyopathy Current Visit: Yes Status: Chronic Qualifiers: Cardiomyopathy type: unspecified Qualified Code(s): I42.9 - Cardiomyopathy , unspecified Objective PUL Vital signs: Last Vital Signs Temp 98.0 F 04/19/17 07:37 Pulse 81 04/19/17 08:33 Resp 12 04/19/17 08:33 BP 140/84 04/19/17 08:33 Pulse Ox 75 04/19/17 08:33 Results - Laboratory Findings CBC and BMP: 04/18/17 07:16 04/18/17 07:16 ABG ABG pH 7.42 pH Units (7.32-7.45) 04/18/17 08:37 ABG pCO2 55 mmHg (35-45) H 04/18/17 08:37 ABG pO2 81 mmHg (85-104) L 04/18/17 08:37 ABG O2 Saturation 96 % (95-98) 04/18/17 08:37 PT/INR, D-dimer PT 16.0 Seconds (9.4-12.1) H 04/12/17 17:50 Abnormal lab findings: Abnormal lab results RBC 4.00 M/mcL (4.19-5.50) L 04/18/17 07:16 Hgb 11.4 g/dL (12.9-16.9) L 04/18/17 07:16 Hct 36.5 % (37.5-50.1) L 04/18/17 07:16 MCHC 31.2 g/dL (31.6-35.5) L 04/18/17 07:16 RDW 14.6 % (11.5-14.5) H 04/18/17 07:16 Band Neutrophils % 21.0 % (0-4) H 04/07/17 18:58 Metamyelocytes % 3.0 % (0) H 04/07/17 18:58 Neutrophils # 9.3 K/mcL (1.6-8.9) H 04/18/17 07:16 Lymphocytes # 0.3 K/mcL (0.6-4.6) L 04/18/17 07:16 Platelet Estimate Slight Decrease (Normal) L 04/09/17 03:10 Large Platelets Present (Not Present) A 04/08/17 04:05 PT 16.0 Seconds (9.4-12.1) H 04/12/17 17:50 ABG pCO2 55 mmHg (35-45) H 04/18/17 08:37 ABG pO2 81 mmHg (85-104) L 04/18/17 08:37 ABG HCO3 36 mEq/L (21-27) H 04/18/17 08:37 ABG Total CO2 38 mEq/L (20-26) H 04/18/17 08:37 ABG Base Excess 10 mEq/L (-2 to 3) H 04/18/17 08:37 Carbon Dioxide 34 mEq/L (19-29) H 04/18/17 07:16 BUN 34 mg/dL (8-26) H 04/18/17 07:16 Creatinine 0.63 mg/dL (0.72-1.25) L 04/18/17 07:16 BUN/Creatinine Ratio 54 (6-26) H 04/18/17 07:16 Glucose 116 mg/dL (70-99) H 04/18/17 07:16 Calculated Osmolality 307 (280-300) H 04/18/17 07:16 Direct Bilirubin 0.7 mg/dL (0.0-0.5) H 04/18/17 07:16 AST 41 Units/L (5-34) H 04/18/17 07:16 ALT 87 Units/L (0-55) H 04/18/17 07:16 Alkaline Phosphatase 141 Units/L (38-126) H 04/18/17 07:16 Troponin I 0.15 ng/mL (0-0.03) H* 04/13/17 03:25 Serum Total Protein 5.7 g/dL (6.0-8.3) L 04/18/17 07:16 Albumin 2.1 g/dL (3.5-5.0) L 04/18/17 07:16 Globulin 3.6 g/dL (2.4-3.5) H 04/18/17 07:16 Albumin/Globulin Ratio 0.6 (1.1-2.2) L 04/18/17 07:16 Prealbumin 14.0 mg/dL (18.0-45.0) L 04/11/17 06:33 - Microbiology Findings Microbiology Findings: Microbiology, Last 48 Hours 04/12/17 17:53 Blood Culture - Final Peripheral Venipuncture No growth. 04/12/17 17:53 Blood Culture - Final Peripheral Venipuncture No growth. 04/11/17 09:22 Blood Culture - Final Peripheral Venipuncture No growth. 04/11/17 09:22 Blood Culture - Final Peripheral Venipuncture No growth. - Clinical Findings Intake & Output: Intake & Output 04/18/17 04/19/17 04/19/17 23:59 07:59 15:59 Intake Total 61.5 / 61.5 115 / 115 Balance 61.5 / 61.5 115 / 115 - Attending Attestation I examined this patient and my medical decision-making was reviewed with the Resident Physician. I agree with the documented findings, disposition and treatment plan as described except to the extent set forth below. We independently had [id number] contact with the patient Patient seen and examined at bedside Management was reviewed during multidisciplinary critical care rounds. Plan to transition to a hospice bed later in the day when one becomes available appreciate palliative care consult in the recommendations I have updated the family at bedside all QUESTIONS were answered
[2017-04-19] MEDS: OLANZapine 5 MG TAB.RAPDIS PO SCH (09:48)
[2017-04-19] MEDS: Morphine 50 MG in D5% in Water 45 ML IVC SCH ×2 (11:46→19:43)
--- NOTE | 2017-04-19 13:40 | Palliative - Consult Note ---
Date of Encounter: 04/19/17 Time of Encounter: 11:50 - Assessment and Plan (1) Generalized pain Current Visit: Yes Status: Acute Assessment and plan: Patient has required frequent doses of Morphine every 5 minutes or so and still appears uncomfortable. D/W family - will initiate Morphine drip and titrate as needed. Will have boluses available PRN as needed. (2) Anxiety Current Visit: Yes Status: Acute Assessment and plan: He has had frequent doses of Lorazepam and is still restless. Will increase to 2mg and monitor (3) ICD (implantable cardioverter-defibrillator) in place Current Visit: Yes Status: Chronic Assessment and plan: D/W family - will have this de-activated today. Magnet in place. Cardiology has been notified. (4) Acute and chronic respiratory failure with hypoxia Current Visit: Yes Status: Acute (5) Pneumonia Current Visit: Yes Status: Acute Qualifiers: Pneumonia type: due to group B Streptococcus Laterality: left Lung location: lower lobe of lung Qualified Code(s): J15.3 - Pneumonia due to streptococcus, group B Palliative-CN HPI - Data of Consult Requesting Physician: Leilani Castillo MD Primary Care Provider: Ellen Vora DO - Consult Narrative History of present illness: Mr. Mariscal is a 77 year old male who came to the hospital for an elective cholecystectomy for biliary dyskinesia. During induction of anesthesia, he was noted to have significant hypotension that resulted in cancellation of the procedure and transfer to ICU. He was evaluated by cardiology with echocardiogram which showed relatively preserved ejection fraction and no other suspicious findings. He had a prolonged ICU course - and extubation was attempted at one point, however, pt required re-intubation. During this time, he failed swallow eval and PEG tube was placed for nutritional support. Patient self-extubated the other day, and has struggled with delirium since, requiring some sedating medications. Over the last 24 hours, he condition continued to decline, and family decided yesterday to transition to comfort care. Palliative care was consulted to assist in symptom management as staff having difficulty controlling his pain and agitation. CC: Leilani Castillo MD Past Med Surg Social Fam HX - Past Medical History Medical history: arthritis, atrial fibrillation, cancer, CHF, coronary artery disease, CVA, hyperlipidemia, hypertension, myocardial infarction, other Psychiatric history: no psych history - Past Surgical History Surgical History: pacemaker/AICD - Social History Smoking Status: Never smoker Smokeless Tobacco Status: No Alcohol use: none Drug use: none Medications and Allergies Atorvastatin [Lipitor] 40 mg PO DAILY 04/01/15 [History] Multivitamin [Flintstones] 1 each PO DAILY 04/01/15 [History] Tamsulosin [Flomax] 0.4 mg PO DAILY 04/01/15 [History] Nitroglycerin [Nitrostat] 0.4 mg SL Q5M PRN 09/16/15 [History] Carvedilol 12.5 mg PO BID 07/08/16 [History] ALPRAZolam [Xanax 0.5 MG Tablet] 0.5 mg PO BID PRN 04/05/17 [History] Apixaban [Eliquis] 5 mg PO BID 04/05/17 [History] Escitalopram [Lexapro] 10 mg PO DAILY 04/05/17 [History] 3 Allergy/AdvReac Type Severity Reaction Status Date / Time celecoxib [From Celebrex] AdvReac Rash Verified 04/05/17 10:23 ROS unobtainable: due to mental status Palliative Care-Exam - Constitutional Vitals: Temp Pulse Resp BP Pulse Ox 98.0 F 81 12 140/84 75 04/19/17 07:37 04/19/17 08:33 04/19/17 08:33 04/19/17 08:33 04/19/17 08:33 General appearance: Present: mild distress - Head Head Exam: Present: normal inspection, normocephalic - Eye Eye exam: Present: normal appearance, PERRL - Respiratory Respiratory exam: Present: decreased breath sounds, CTAB Additional comments: shallow inspiratory effort - Cardiovascular Cardiovascular exam: Present: irregular rhythm - GI/Abdominal Exam GI/Abdominal exam: Present: diminished bowel sounds, soft - Catheter Type: Urethral (Smith) - Extremities Exam Additional comments: Mottled and cool to touch - Neurological Exam Neurological exam: Present: alert, altered - Psychiatric Psychiatric exam: Present: anxious - Skin Skin exam: Present: dry, pallor, warm Internal Medicine - CN: Reslt - Labs CBC & Chem 7: 04/18/17 07:16 04/18/17 07:16 - ABG Interpretation ABG results: ABG ABG pH 7.42 pH Units (7.32-7.45) 04/18/17 08:37 ABG pCO2 55 mmHg (35-45) H 04/18/17 08:37 ABG pO2 81 mmHg (85-104) L 04/18/17 08:37 ABG O2 Saturation 96 % (95-98) 04/18/17 08:37 PT/INR, D-dimer PT 16.0 Seconds (9.4-12.1) H 04/12/17 17:50 Consult Discharge Plan - Plan Referrals: Ellen Vora DO [Primary Care Provider] - Palliative Quality Palliative Quality: Screen for Code Status: Yes, Screen for Goals of Care: Yes, Screen for Pain: Yes, If Pain Regimen Started, Initiate Bowel Regimen: NA, Screen for Nausea/Vomitting: Yes Code Status: 04/05/17 16:05 Resuscitation Status: Active [RES] Routine Comment: Resuscitation Status: Full Code 04/18/17 12:29 DNR [Resuscitation Status: Active] [RES] Routine Comment: Resuscitation Status: DNR-Comfort Care
--- NOTE | 2017-04-19 14:37 | Event Note ---
Date of Encounter: 04/19/17 Time of Encounter: 13:30 - Cardiology Event Note Cardiology consulted for deactivation of tachytherapies. Discussed and reviewed with daughters, sisters, and brothers at bedside. Patient is DNR-CC. Family in agreeance to deactivate tachytherapies. [facility], notified of need to deactivate tacchytherapies. Currently magnet in place.
[2017-04-19] MEDS: Atropine Sulfate 1% 40 DROP/2 ML BOTTLE SL PRN (23:00)
[2017-04-20] MEDS: Dexmedetomidine HCl 400 MCG/100 ML MLS IVC SCH ×2 (00:07→00:08)
--- NOTE | 2017-04-20 09:32 | Palliative Progress Note ---
Date of Encounter: 04/20/17 Time of Encounter: 09:00 - Assessment and plan (1) Generalized pain Current Visit: Yes Status: Acute Assessment and plan: -Morphine 4 mg IV every 5 minutes. -Morphine drip 50 mg IV continuous. -According to the family, patient has had no distress morning. (2) Anxiety Current Visit: Yes Status: Acute Assessment and plan: Ativan 2 mg q2 PRN. -Patient is not in any distress at the moment. -Has been unresponsive all morning. (3) Pneumonia Current Visit: Yes Status: Acute Qualifiers: Pneumonia type: due to group B Streptococcus Laterality: left Lung location: lower lobe of lung Qualified Code(s): J15.3 - Pneumonia due to streptococcus, group B - Time Spent With Patient Total time spent is greater than 50% in coordination of care (as documented) at patient's floor/unit and/or counseling patient: - Subjective Interval history: Patient was seen and examined at bedside this morning. Patient is currently accompanied by his family members. Patient does not appear in any acute distress. According to his family, patient's condition has remained relatively unchanged this morning. He is currently unresponsive. - Constitutional Vitals: Abnormal lab results RBC 4.00 M/mcL (4.19-5.50) L 04/18/17 07:16 Hgb 11.4 g/dL (12.9-16.9) L 04/18/17 07:16 Hct 36.5 % (37.5-50.1) L 04/18/17 07:16 MCHC 31.2 g/dL (31.6-35.5) L 04/18/17 07:16 RDW 14.6 % (11.5-14.5) H 04/18/17 07:16 Band Neutrophils % 21.0 % (0-4) H 04/07/17 18:58 Metamyelocytes % 3.0 % (0) H 04/07/17 18:58 Neutrophils # 9.3 K/mcL (1.6-8.9) H 04/18/17 07:16 Lymphocytes # 0.3 K/mcL (0.6-4.6) L 04/18/17 07:16 Platelet Estimate Slight Decrease (Normal) L 04/09/17 03:10 Large Platelets Present (Not Present) A 04/08/17 04:05 PT 16.0 Seconds (9.4-12.1) H 04/12/17 17:50 ABG pCO2 55 mmHg (35-45) H 04/18/17 08:37 ABG pO2 81 mmHg (85-104) L 04/18/17 08:37 ABG HCO3 36 mEq/L (21-27) H 04/18/17 08:37 ABG Total CO2 38 mEq/L (20-26) H 04/18/17 08:37 ABG Base Excess 10 mEq/L (-2 to 3) H 04/18/17 08:37 Carbon Dioxide 34 mEq/L (19-29) H 04/18/17 07:16 BUN 34 mg/dL (8-26) H 04/18/17 07:16 Creatinine 0.63 mg/dL (0.72-1.25) L 04/18/17 07:16 BUN/Creatinine Ratio 54 (6-26) H 04/18/17 07:16 Glucose 116 mg/dL (70-99) H 04/18/17 07:16 Calculated Osmolality 307 (280-300) H 04/18/17 07:16 Direct Bilirubin 0.7 mg/dL (0.0-0.5) H 04/18/17 07:16 AST 41 Units/L (5-34) H 04/18/17 07:16 ALT 87 Units/L (0-55) H 04/18/17 07:16 Alkaline Phosphatase 141 Units/L (38-126) H 04/18/17 07:16 Troponin I 0.15 ng/mL (0-0.03) H* 04/13/17 03:25 Serum Total Protein 5.7 g/dL (6.0-8.3) L 04/18/17 07:16 Albumin 2.1 g/dL (3.5-5.0) L 04/18/17 07:16 Globulin 3.6 g/dL (2.4-3.5) H 04/18/17 07:16 Albumin/Globulin Ratio 0.6 (1.1-2.2) L 04/18/17 07:16 Prealbumin 14.0 mg/dL (18.0-45.0) L 04/11/17 06:33 General appearance: Present: thin - Head Head exam: Present: atraumatic, normal inspection, normocephalic - ENT ENT exam: Present: mucous membranes dry - Respiratory Respiratory exam: Present: rales Additional comments: Decreased respiratory rate. - Cardiovascular Cardiovascular exam: Present: irregular rhythm - Neurological Exam Neurological exam: Absent: alert - Skin Skin exam: Present: dry, intact Palliative Quality Palliative Quality: Screen for Code Status: Yes, Screen for Goals of Care: Yes, Screen for Pain: Yes, If Pain Regimen Started, Initiate Bowel Regimen: NA, Screen for Nausea/Vomitting: Yes Code Status: 04/05/17 16:05 Resuscitation Status: Active [RES] Routine Comment: Resuscitation Status: Full Code 04/18/17 12:29 DNR [Resuscitation Status: Active] [RES] Routine Comment: Resuscitation Status: DNR-Comfort Care - Labs CBC & Chem 7: 04/18/17 07:16 04/18/17 07:16 - ABG Interpretation ABG results: ABG ABG pH 7.42 pH Units (7.32-7.45) 04/18/17 08:37 ABG pCO2 55 mmHg (35-45) H 04/18/17 08:37 ABG pO2 81 mmHg (85-104) L 04/18/17 08:37 ABG O2 Saturation 96 % (95-98) 04/18/17 08:37 PT/INR, D-dimer PT 16.0 Seconds (9.4-12.1) H 04/12/17 17:50 Consult Discharge Plan - Plan Referrals: Ellen Vora DO [Primary Care Provider] -
[2017-04-20] MEDS: Morphine 50 MG in D5% in Water 45 ML IVC SCH (13:40)
--- NOTE | 2017-04-20 15:19 | Event Note ---
Date of Encounter: 04/20/17 Time of Encounter: 15:18 Per clinical pharmacist and confirmed by a nurse, it is now been discovered that the patient's morphine drip has only been at 2.5 mg now are due to a concentration error. Patient has done quite well with this, however now that the concentration is appropriate we will make his drip at 3 mg an hour same when necessary's as before and then adjust as necessary.
[2017-04-20] MEDS ORDERED: Morphine 50 MG in D5% in Water 45 ML IVC SCH (15:20)
[2017-04-20] MEDS: *HR* Morphine 2 MG/ML SYRINGE IVP PRN ×2 (15:53→18:45)
--- NOTE | 2017-04-20 16:43 | Internal Med Progress Note ---
Date of Encounter: 04/20/17 Time of Encounter: 16:39 - Assessment and plan (1) Septic shock Current Visit: Yes Status: Resolved Assessment and plan: Pt's shock might be multi factorial with sepsis with Strep pneumonia, Adrenal insufficiency As per family pt was trasnferred to in patient hospice care Palliative care team on board comfort measures as per Dr. Porter recommendation cont Morphin gtt + Use Ativan PRN for agitation / discomfort AICD was turned off Talked to the pt's family at bed side and answered all their questions (2) Adrenal insufficiency Current Visit: Yes Status: Acute (3) Biliary dyskinesia Current Visit: Yes Status: Chronic (4) Acute and chronic respiratory failure with hypoxia Current Visit: Yes Status: Acute (5) Pneumonia Current Visit: Yes Status: Acute Qualifiers: Pneumonia type: due to group B Streptococcus Laterality: left Lung location: lower lobe of lung Qualified Code(s): J15.3 - Pneumonia due to streptococcus, group B (6) Acute respiratory failure with hypoxemia Current Visit: Yes Status: Acute (7) Severe protein-calorie malnutrition Current Visit: Yes Status: Acute (8) ICD (implantable cardioverter-defibrillator) in place Current Visit: Yes Status: Chronic (9) PAF (paroxysmal atrial fibrillation) Current Visit: Yes Status: Acute - Subjective Interval history: Mr. Mariscal is a 77 year old male who came to the hospital for an elective cholecystectomy for biliary dyskinesia. During induction of anesthesia, he was noted to have significant hypotension that resulted in cancellation of the procedure and transfer to ICU. He was evaluated by cardiology with echocardiogram which showed relatively preserved ejection fraction and no other suspicious findings. He had a prolonged ICU course - and extubation was attempted at one point, however, pt required re-intubation. He was treated for Strep Pneumonia. Pt condition seemed to be deteriorating rapidly and family decided for comfort care. So pt was transferred to comfort care services and moved to regular floor last night. Met with pt's , daughter and other family members at bed side, answered all their questions. Pt is currently on morphine gtt. He is obtunded and sedated. - Constitutional Vitals: Temp Pulse Resp BP Pulse Ox 97.5 F L 80 11 96/62 82 04/20/17 06:59 04/20/17 06:59 04/20/17 06:59 04/20/17 06:59 04/19/17 19:29 Exam: Sedated.. obtunded - Head Head exam: Present: atraumatic - Respiratory Respiratory exam: Present: decreased breath sounds, respiratory distress, wheezes. Absent: rales, rhonchi - Cardiovascular Cardiovascular exam: Present: +S1, +S2, tachycardia. Absent: systolic murmur - Psychiatric Additional comments: sedated Internal Medicine: Result - Labs CBC & Chem 7: 04/18/17 07:16 04/18/17 07:16 - ABG Interpretation ABG results: ABG ABG pH 7.42 pH Units (7.32-7.45) 04/18/17 08:37 ABG pCO2 55 mmHg (35-45) H 04/18/17 08:37 ABG pO2 81 mmHg (85-104) L 04/18/17 08:37 ABG O2 Saturation 96 % (95-98) 04/18/17 08:37 PT/INR, D-dimer PT 16.0 Seconds (9.4-12.1) H 04/12/17 17:50 - VTE Documentation of Mechanical Device: Intermittent pneumatic compression device Consult Discharge Plan - Plan Referrals: Ellen Vora DO [Primary Care Provider] - (GIP PATIENT )
[2017-04-20] MEDS: *HR* LORazepam 2 MG/ML VIAL IVP PRN (18:45)
[2017-04-20 19:10] VITALS: BP 90/60
[2017-04-20] MEDS: Atropine Sulfate 1% 40 DROP/2 ML BOTTLE SL PRN (20:28)
--- NOTE | 2017-04-21 09:13 | Event Note ---
Date of Encounter: 04/21/17 Time of Encounter: 09:00 I had arrived to room to see pt and was speaking with family. Respirations were very shallow when I arrived. While speaking with , respirations ceased. No audible heart sounds, pulse or respirations. Time was 0855. Primary nurse notified, and she was going to contact hospitalist. Chaplains x2 in room. Provided emotional support.
--- NOTE | 2017-04-21 12:52 | Discharge Summary ---
Date of Encounter: 04/21/17 Time of Encounter: 12:45 - Discharge Diagnosis (1) Septic shock Priority: Primary Status: Resolved (2) Adrenal insufficiency Priority: Primary Status: Acute (3) Acute and chronic respiratory failure with hypoxia Priority: Primary Status: Acute (4) Biliary dyskinesia Priority: Secondary Status: Chronic (5) Pneumonia Priority: Secondary Status: Acute Qualifiers: Pneumonia type: due to group B Streptococcus Laterality: left Lung location: lower lobe of lung Qualified Code(s): J15.3 - Pneumonia due to streptococcus, group B (6) Acute respiratory failure with hypoxemia Priority: Primary Status: Acute (7) Severe protein-calorie malnutrition Priority: Secondary Status: Acute (8) ICD (implantable cardioverter-defibrillator) in place Priority: Secondary Status: Chronic (9) PAF (paroxysmal atrial fibrillation) Priority: Secondary Status: Acute - Discharge Medications Home Medications: Atorvastatin [Lipitor] 40 mg PO DAILY 04/01/15 [History] Multivitamin [Flintstones] 1 each PO DAILY 04/01/15 [History] Tamsulosin [Flomax] 0.4 mg PO DAILY 04/01/15 [History] Nitroglycerin [Nitrostat] 0.4 mg SL Q5M PRN 09/16/15 [History] Carvedilol 12.5 mg PO BID 07/08/16 [History] ALPRAZolam [Xanax 0.5 MG Tablet] 0.5 mg PO BID PRN 04/05/17 [History] Apixaban [Eliquis] 5 mg PO BID 04/05/17 [History] Escitalopram [Lexapro] 10 mg PO DAILY 04/05/17 [History] Allergies/Adverse Reactions: 3 Allergy/AdvReac Type Severity Reaction Status Date / Time celecoxib [From Celebrex] AdvReac Rash Verified 04/05/17 10:23 Date of admission: 04/05/17 14:59 Primary care physician: Ellen Vora DO Consults: 04/06/17 12:17 Consult to Pulmonology [CONS] Routine Consulting Provider: Pulm Crit [facility] Sleep Lacey Reason for Consult: shortness of breath Time Notified: 12:19 Call Completed: Yes 04/07/17 10:08 Consult to Nutrition [CONS] Routine Comment: Consulting Provider: NUTRITION Reason for Dietary Consult: TF Start and Manage 04/10/17 10:52 Consult to Invasive Line Access Team [CONS] Routine Reason for Consult: LIMITED ACCESS Line Type: EPIV Call Completed: Yes 04/10/17 13:12 Consult to Invasive Line Access Team [CONS] Routine Reason for Consult: Picc Line Insertion Line Type: PICC PICC line indications: Parental nutrition consult to mandolin repair person [Consult to Nutrition] [CONS] Stat Comment: Total fluid rate will be TPN goal Consulting Provider: NUTRITION Reason for Dietary Consult: TPN Start and Manage Other:: peg tube education 04/14/17 11:37 Consult to Cardiology [CONS] Routine Comment: Consulting Provider: Cardiology Lacey Reason for Consult: hypotension, per telecommunications sales representative order Call Completed: Yes 04/19/17 10:25 Consult to Palliative Care [CONS] Stat Comment: Consulting Provider: Palliative Care Lacey Reason for Consult: end of life care Call Completed: Yes 04/19/17 10:46 Consult to Cardiology [CONS] Routine Comment: Consulting Provider: Cardiology Lacey Reason for Consult: deactivation of defibrillator - notified Aureliano Rodrigesvenger Time Notified: 10:45 Call Completed: Yes - Patient Status Disposition: Condition: Undetermined - Discharge Instructions Follow Up With: Ellen Vora DO [Primary Care Provider] - (GIP PATIENT ) Hospital course: Mr. Mariscal is a 77 year old male who came to the hospital for an elective cholecystectomy for biliary dyskinesia. During induction of anesthesia, he was noted to have significant hypotension that resulted in cancellation of the procedure and transfer to ICU. He was evaluated by cardiology with echocardiogram which showed relatively preserved ejection fraction and no other suspicious findings. He had a prolonged ICU course - and extubation was attempted at one point, however, pt required re-intubation. He was treated for Strep Pneumonia. Pt condition seemed to be deteriorating rapidly and family decided for comfort care. So pt was transferred to comfort care services and moved to regular floor on 04/19/17. I saw him first time y/d for comfort care after he got transferred to regular floor. He was having slightly shallow breathing, and sedated on medication. He seemed to comfortable with medication y /d.Talked to the family and answered all their questions. This morning when hospice OXYGEN THERAPY TECHNICIAN / Arlyn Jo rounding on him around 8.55 AM his respirations were ceased and no audible heart sounds found. She pronounced him around 8.55. By them time I went to see him, he was already transferred out of the floor. So I did not get to see him today, as well as did not talk to the family today. Please review all other consultants notes for his complete hospital course details. - Time Spent with Patient Total time spent providing and/or coordinating discharge services: - Constitutional Vitals: Temp Pulse Resp BP Pulse Ox 97.3 F L 97 18 90/60 82 04/20/17 19:00 04/20/17 19:00 04/20/17 19:00 04/20/17 19:00 04/19/17 19:29 - VTE Documentation of Mechanical Device: Intermittent pneumatic compression device
== END 2017-04-21 08:55 | disposition expired | DRG 444 ==
LOC: SAMDAY 09:52 → ICNU 14:59 → 2ANU 04-19 13:14
PROVIDERS: ADMIT Surgery; ATTEND Internal Medicine Pulmonary Disease